=== PATIENT | female | born 1930 | race Caucasian/White ===

== ENCOUNTER 2018-02-19 17:14 | Inpatient (IN) | payer OTHER ==
[2018-02-19] MEDS ORDERED: ACETAMINOPHEN 325 MG TABLET ONE ×2 (18:17→18:21)
[2018-02-19] MEDS ORDERED: LOPERAMIDE HCL 2 MG CAPSULE PO PRN (18:27)
[2018-02-19] MEDS ORDERED: ONDANSETRON 4 MG/2 ML VIAL IV PRN (18:27)
[2018-02-19] MEDS ORDERED: POLYETHYL GLY 3350 17 GM/DOSE PO PRN (18:27)
[2018-02-19] MEDS ORDERED: DIPHENHYDRAMINE 25 MG TAB/CAP PO PRN (18:27)
[2018-02-19] MEDS ORDERED: ONDANSETRON 4 MG (ODT) TAB PO PRN (18:27)
[2018-02-19 19:46] LABS: Potassium 4.5 mEq/L (3.6-5.0)
[2018-02-19 19:52] LABS: Bilirubin Direct 0.1 mg/dL (0-0.2); Bilirubin Total 0.6 mg/dL (0.3-1.2); Magnesium 1.8 mg/dL (1.8-2.5); Protein, Total 6.7 g/dL (6.0-8.3)
[2018-02-19 19:58] LABS: Absolute Lymphocytes (CBC) 0.8 K/uL (0.7-4.9); Basophils % 0.4 % (0-1.3); Eosinophils % 2.6 % (0-4.4); Hematocrit 33.2 % (36.0-45.0); Lymphocytes % 11.1 % (15.3-44.8); MCH 28.5 pg (27.0-35.0); MCV 87.4 fL (80-100); MPV 8.1 fL (7.6-11.3); Monocytes % 13.8 % (3.3-12.3)
[2018-02-19 19:59] LABS: Protime INR 3.56
[2018-02-19 20:25] LABS: Thyroid Stimulating Hormone 1.16 uIU/mL (0.34-5.60)
[2018-02-19] MEDS ORDERED: PNEUMOCOCCAL VACCINE 0.5 ML IMVAC ONE (21:00)
[2018-02-19 22:59] VITALS: BMI 19.3
[2018-02-20] MEDS: VANCOMYCIN/NS 1 gm 1 GM/250 ML BAG IV SCH ×2 (01:03→09:00)
[2018-02-20] MEDS: NACHLORIDE 0.45% 1,000 ML IV SCH ×2 (01:04→15:00)
[2018-02-20] MEDS: ACETAMINOPHEN 325 MG TABLET PO PRN ×3 (03:19→20:58)
[2018-02-20 07:22] LABS: Magnesium 1.9 mg/dL (1.8-2.5); Potassium 4.7 mEq/L (3.6-5.0)
[2018-02-20 07:25] LABS: Absolute Lymphocytes (CBC) 0.8 K/uL (0.7-4.9); Absolute Monocytes 0.9 K/uL (0.1-1.3); Absolute Neutrophil 4.1 K/uL (1.8-8.0); Basophils % 0.3 % (0-1.3); Eosinophils % 3.4 % (0-4.4); Lymphocytes % 13.8 % (15.3-44.8); MCH 28.5 pg (27.0-35.0); MCV 86.2 fL (80-100); MPV 8.1 fL (7.6-11.3); Monocytes % 14.9 % (3.3-12.3)
[2018-02-20 07:37] LABS: Protime INR 4.33
--- NOTE | 2018-02-20 09:23 | RAD REPORT ---
EXAM DESCRIPTION: US - Abdomen Exam Complete - 02/20/2018 8:58 am CLINICAL HISTORY: Abdominal pain COMPARISON: 2010 FINDINGS: Hepatic granulomata are present. The gallbladder is distended. A gallstone is not seen. A 27 millimeter echogenic structure is present within the gallbladder which does not shadow. The gallbladder wall is not thickened. The common bile duct is upper limits normal caliber The pancreas appears normal in size and echotexture. The right kidney measures 10 centimeters with a normal echotexture. The left kidney measures 10 centimeters with a normal echotexture. The spleen measures 9 centimeters. IMPRESSION: Distended gallbladder 27 millimeter echogenic structure within the gallbladder probably represents a sludge ball. A follow- up ultrasound in 6 months is recommended for re-evaluation.
[2018-02-20 10:24] LABS: Anisocytosis 1+; Blood Morphology Comment NOTED (NOT SEEN); Elliptocytes 1+; Platelet Estimate DECR; Urine White Blood Cell Casts OK
[2018-02-20 11:33] LABS: Urine Appearance CLEAR; Urine Bilirubin NEGATIVE (NEG); Urine Blood NEGATIVE (NEG); Urine Color YELLOW; Urine Glucose NEGATIVE (NEG); Urine Protein NEGATIVE (NEG); Urine Urobilinogen 0.2 mg/dL (0.2-1.0); Urine pH 5.5 (5.0-7.0)
[2018-02-20 11:37] LABS: Urine Microscopic Reflex NO UMIC
--- NOTE | 2018-02-20 13:44 | P.PN ---
Subjective Date of Service: 02/20/18 Chief Complaint: FEVER, CHILLS Subjective: No new changes Review of Systems 10-point ROS is otherwise unremarkable General: Weakness, Malaise Physical Examination - Vital Signs Temperature: 97.7 F Blood Pressure: 122/46 Pulse: 60 Respirations: 18 Pulse Ox (%): 94 - Physical Exam General: Alert, Cachectic, Mild distress HEENT: Atraumatic, PERRLA, EOMI Neck: Supple, JVD not distended Respiratory: Clear to auscultation bilaterally, Normal air movement Cardiovascular: Regular rate/rhythm, Normal S1 S2 Gastrointestinal: Tenderness (RUQ, NO REBOUND.) Musculoskeletal: No tenderness Integumentary: No rashes Neurological: Normal speech, Normal tone, Normal affect Lymphatics: No axilla or inguinal lymphadenopathy - Studies Laboratory Data (last 24 hrs) 02/20/18 06:20: Sodium 133 L, Potassium 4.7, BUN 20, Creatinine 1.50 H, Glucose 99, Magnesium 1.9 02/20/18 06:20: PT 51.9 H, INR 4.33 H* 02/20/18 06:20: WBC 6.1, Hgb 10.3 L, Hct 31.0 L, Plt Count 108 L 02/19/18 19:20: Sodium 134 L, Potassium 4.5, BUN 20, Creatinine 1.65 H, Glucose 106, Phosphorus 3.0, Magnesium 1.8, Total Bilirubin 0.6, AST 35, ALT 21, Alkaline Phosphatase 66 02/19/18 19:20: PT 42.5 H, INR 3.56, APTT 44.6 H 02/19/18 19:20: WBC 7.0, Hgb 10.8 L, Hct 33.2 L, Plt Count 127 L Medications List Reviewed: Yes Assessment And Plan - Current Problems (Diagnosis) (1) FUO (fever of unknown origin) Current Visit: Yes Status: Acute Plan: UNCLEAR SO FAR WHERE IS FEVER COMING FOR SHE REFUSED TO CT SCAN YSTERDAY SONOGRAM IS DONE WILL ORDER CXR. GB DISTENSION BUT NO THICKENING. SHE NEEDS HIDA SCAN CULTURES ARE PENDING. 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
[2018-02-20] MEDS ORDERED: GABAPENTIN 100 MG CAP PO SCH (14:00)
--- NOTE | 2018-02-20 14:38 | RAD REPORT ---
EXAM DESCRIPTION: RAD - Chest Pa And Lat (2 Views) - 02/20/2018 2:29 pm CLINICAL HISTORY: Cough, shortness of breath COMPARISON: 01/12/2015, 01/24/2011 FINDINGS: Diffuse emphysematous changes are present throughout the lungs. Blunting of the costophren ic angles bilaterally likely indicates pleural thickening or small pleural effusions. The heart is mi ldly enlarged in size with a multi lead pacer/defibrillator device. No displaced fractures. IMPRESSION: Diffuse COPD.
[2018-02-20] MEDS ORDERED: GABAPENTIN 100 MG CAP PO PRN (16:02)
[2018-02-20] MEDS ORDERED: WARFARIN SODIUM 4 MG TAB PO SCH (17:00)
[2018-02-20] MEDS: METRONIDAZOLE 500mg IVPB 500 MG/100 ML BAG IV SCH (17:32)
[2018-02-20 17:35] VITALS: O2SAT 97
[2018-02-20] MEDS: Ciprofloxacin 200mg IV 200 MG/100 ML IV.SOLN. IV SCH (20:57)
[2018-02-21] MEDS: METRONIDAZOLE 500mg IVPB 500 MG/100 ML BAG IV SCH ×2 (00:40→09:53)
[2018-02-21] MEDS: ACETAMINOPHEN 325 MG TABLET PO PRN (02:45)
[2018-02-21] MEDS: NACHLORIDE 0.45% 1,000 ML IV SCH (02:46)
[2018-02-21 05:29] LABS: Absolute Lymphocytes (CBC) 1.1 K/uL (0.7-4.9); Absolute Monocytes 0.9 K/uL (0.1-1.3); Absolute Neutrophil 2.9 K/uL (1.8-8.0); Basophils % 0.4 % (0-1.3); Eosinophils % 3.8 % (0-4.4); Hematocrit 30.3 % (36.0-45.0); Lymphocytes % 21.5 % (15.3-44.8); MCH 28.3 pg (27.0-35.0); MCV 86.5 fL (80-100); MPV 8.2 fL (7.6-11.3); Monocytes % 17.8 % (3.3-12.3); RBC Red Blood Cell Count 3.51 M/uL (3.86-4.86)
[2018-02-21 05:31] LABS: Potassium 4.4 mEq/L (3.6-5.0)
[2018-02-21 05:32] LABS: Magnesium 1.9 mg/dL (1.8-2.5)
[2018-02-21 05:35] LABS: Protime INR 4.47
[2018-02-21 06:30] LABS: Blood Morphology Comment NOT SEEN (NOT SEEN); Platelet Estimate DECR; Urine White Blood Cell Casts OK
[2018-02-21] MEDS ORDERED: METOPROLOL XL 50 MG TAB PO SCH (09:00)
[2018-02-21] MEDS ORDERED: LOSARTAN POTASSIUM 50 MG TABLET PO SCH (09:00)
--- NOTE | 2018-02-21 09:16 | RAD REPORT ---
EXAM DESCRIPTION: NM - Hepatobiliary System Imagin - 02/21/2018 9:06 am CLINICAL HISTORY: Abdominal pain COMPARISON: February 21, 2008 ultrasound TECHNIQUE: 6.3 millicuries technetium Choletec were administered intravenously and images of the abd omen obtained for 30 minutes. The patient was then given 4 ounces of ice cream and images of the gall bladder obtained for 30 minutes. FINDINGS: The liver demonstrates prompt radiotracer activity. Uptake is seen within the gallbladder by 15 minutes. Uptake is seen within small bowel. After the administration of ice cream the gallbladder ejection fraction equals 30% Normal values are usually greater than 35%. IMPRESSION: No evidence of acute cholecystitis Mildly diminished gallbladder ejection fraction may indicate biliary dyskinesis
[2018-02-21] MEDS: Ciprofloxacin 200mg IV 200 MG/100 ML IV.SOLN. IV SCH (09:53)
[2018-02-21 12:03] VITALS: BP 113/45; TEMP 97
--- NOTE | 2018-02-21 12:43 | P.DS ---
Admission Date: 02/19/18 Discharge Date: 02/21/18 Disposition: ROUTINE DISCHARGE Discharge Condition: FAIR Reason for Admission: FEVER, CHILLS - Problems (1) FUO (fever of unknown origin) Current Visit: Yes Status: Acute (2) Gallbladder disorder Current Visit: Yes Status: Acute (3) Prosthetic valve endocarditis Current Visit: Yes Status: Acute Hospital Course: MS. ABREU STARTED FEELING BAD AFTER SULFA ABX. SHE HAD FEVER, CHILLS AND ACHES. SHE HAS PROSTHETIC VALVE, ENDOCARDITIS IS FIRST IN DD. HER BLOOD CULTUERS ARE NEGATIVE. ONE IS FALSE POSITIVE AND LOOKS LIKE A CONTAMINANT. SHE DOES NOT HAVE CRITERIA FOR ENDOCARDITIS. HER CT ABDOMEN SHOWED GB DILATATION. I ORDERED HIDA SCAN AND THAT IS NEGATIVE. SHE IS FEELING GREAT. I SUSPECT SHE HAD REACTION TO SULFA WITH FEBRILE REACTION. I STOPPED ALL ABX. I WILL WATCH HER ON FRIDAY. FAMILY UNDERSTOOD WELL. I TOLD HER THAT I DON'T LIKE TO OVER OR UNDERTREAT AND WOULD LIKE TO OBSERVE IF SHE HAS ANY RECURRENCE OF SYMPTOMS. SHE IS FEELING GREAT TODAY. Vital Signs/Physical Exam: Temp Pulse Resp BP Pulse Ox 97 F 60 16 113/45 L 96 02/21/18 12:00 02/21/18 12:00 02/21/18 12:00 02/21/18 12:00 02/21/18 12:00 Laboratory Data at Discharge: WBC 5.2 K/uL (4.3-10.9) D 02/21/18 04:44 Hgb 9.9 g/dL (12.0-15.0) L 02/21/18 04:44 Hct 30.3 % (36.0-45.0) L 02/21/18 04:44 Plt Count 103 K/uL (152-406) L 02/21/18 04:44 PT 53.5 SECONDS (9.5-12.5) H 02/21/18 04:44 INR 4.47 H* 02/21/18 04:44 APTT 44.6 SECONDS (24.3-36.9) H 02/19/18 19:20 Sodium 135 mEq/L (135-145) 02/21/18 04:44 Potassium 4.4 mEq/L (3.6-5.0) 02/21/18 04:44 BUN 17 mg/dL (6-20) 02/21/18 04:44 Creatinine 1.15 mg/dL (0.44-1.00) H 02/21/18 04:44 Glucose 97 mg/dL (65-120) 02/21/18 04:44 Phosphorus 3.0 mg/dL (2.5-4.3) 02/19/18 19:20 Magnesium 1.9 mg/dL (1.8-2.5) 02/21/18 04:44 Total Bilirubin 0.6 mg/dL (0.3-1.2) 02/19/18 19:20 AST 35 IU/L (10-42) 02/19/18 19:20 ALT 21 IU/L (10-60) 02/19/18 19:20 Alkaline Phosphatase 66 IU/L (42-121) 02/19/18 19:20 Home Medications: Metoprolol Succinate [Toprol Xl*] 50 mg PO DAILY 01/13/15 Gabapentin [Neurontin*] 100 mg PO TID 02/19/18 Acetaminophen [Tylenol*] 650 mg PO Q6HP PRN tab 02/21/18 Patient Discharge Instructions: DO NOT TAKE WARFARIN UNTIL YOU VISIT US AT ABOUT 4 PM , FRIDAY. WATCH FOR FEVER, RECORD TEMPERATURE. Diet: Regular Activity: Ad pratima
[2018-02-21] MEDS ORDERED: VANCOMYCIN/NS 1 gm 1 GM/250 ML BAG IV SCH (13:00)
--- NOTE | 2018-02-21 13:33 | CON ---
Date of Consultation: 02/20/2018 Reason For Consultation: Evaluate gallbladder and the patient with fever. History Of Present Illness: The patient is an 88-year-old female, who was seen in Dr. Reyna's office with fever and feeling ill. She was admitted to the hospital. She has a prosthetic valve. Endocar ditis is the main concern and workup has been started; however, blood cultures so far are negative. She had an ultrasound of the abdomen because she was little tender in the abdomen. She has some slud ge in her gallbladder. I was consulted and HIDA scan was ordered and HIDA scan does not show any orlin dence of acute cholecystitis although the ejection fraction is borderline. The patient denies any na usea or vomiting. No abdominal pain. No diarrhea or constipation. No dysuria or hematuria. No sor e throat, runny nose, cough, headaches, or dizziness and she has had high fevers and chills but she h as had some sweating earlier this morning and feels much better now and she is hungry. Review of Systems: Otherwise unremarkable. Past Medical History: Significant for hypertension and mitral valve prolapse, rheumatic fever, hyper lipidemia, history of atrial fibrillation. Past Surgical History: Valve replacement [place] type, pacemaker defibrillator, cataract surgery, tonsillectomy, cardiac stent, inguinal hernia repair. Allergies: INCLUDE CODEINE, DILAUDID, SULFA. Medications: Reviewed. She is on Coumadin. She does not smoke or drink. Family History: Significant for SC and coronary artery disease. Physical Examination: Vital Signs: Stable. She is currently afebrile. General: She is awake, alert, and oriented x3. Head and Neck: Cranial nerves 2 through 12 grossly within normal limits. No neck masses. No JVD. Throat clear. Neck is supple. Chest: Clear. Heart: S1, S2. Abdomen: Soft, nondistended, nontender. Positive bowel sounds. Extremities: Neurovascularly intact. Neuro: Nonfocal. Laboratory Data: White count is 5.2. There was normal left shift. Monocytes are elevated. INR is 4.47. Chemistry reviewed. Her LFT, amylase, lipase were within normal limit on admission. Ultrasou nd done yesterday shows distended gallbladder, 27 mm echogenic structure within the gallbladder proba emelina present sludge ball. No evidence of acute cholecystitis and her HIDA scan reviewed, shows no orlin dence of acute cholecystitis. Mildly diminished gallbladder ejection fraction may indicate biliary d yskinesia. Assessment: Sepsis, etiology unclear, could be endocarditis or viral syndrome. At this time, I do not believe the gallbladder is the reason the patient is having fever. I would re commend diet as tolerated. Antibiotics and further work up to rule out endocarditis. No need for an y surgical intervention at this time. Plan of care discussed with the family, the patient as well as Dr. Reyna. ROMARIO/SELIN Voice ID: [id number] Report ID: [id number]
== END 2018-02-21 14:08 | disposition home or self-care (01) | DRG 864 ==
LOC: OBSVTOIN 17:56 → INTOOBSV 17:56 → 4TH 17:56 → OBSVTOIN 02-21 08:56
PROVIDERS: ADMIT Internal Medicine; ATTEND Internal Medicine
DX: R50.2 Drug induced fever (principal); K82.9 Disease of gallbladder, unspecified; I10 Essential (primary) hypertension; I34.1 Nonrheumatic mitral (valve) prolapse; E78.5 Hyperlipidemia, unspecified; I48.91 Unspecified atrial fibrillation; T37.0X5A Adverse effect of sulfonamides, initial encounter; Z95.810 Presence of automatic (implantable) cardiac defibrillator; Z28.21 Immunization not carried out because of patient refusal
CPT/HCPCS: 36415; 71046; 76700; 78226; 80048; 80076; 81003; 82306; 82607; 82962; 83735; 84100; 84443; 85025; 85610; 85652; 85730; 86140; 87040; 87086; 87088; 87205; A9537; J0744; J3370

== ENCOUNTER 2018-12-17 01:53 | Emergency (ER) | payer OTHER ==
[2018-12-17] MEDS ORDERED: MEPERIDINE HCL 25 MG/0.5 ML ONE (02:26)
[2018-12-17] MEDS ORDERED: ONDANSETRON 4 MG/2 ML VIAL ONE (02:26)
[2018-12-17 02:32] LABS: Absolute Monocytes 0.7 K/uL (0.1-1.3); Absolute Neutrophil 8.5 K/uL (1.8-8.0); Basophils % 0.2 % (0-1.3); Eosinophils % 0.1 % (0-4.4); Hematocrit 32.7 % (36.0-45.0); Lymphocytes % 9.5 % (15.3-44.8); MPV 7.4 fL (7.6-11.3); Monocytes % 6.8 % (3.3-12.3); RBC Red Blood Cell Count 3.83 M/uL (3.86-4.86)
[2018-12-17 02:55] LABS: Albumin 3.9 g/dL (3.4-5.0); Bilirubin Total 1.6 mg/dL (0.2-1.0); Potassium 3.8 mmol/L (3.5-5.1); Protein, Total 7.5 g/dL (6.4-8.2)
--- NOTE | 2018-12-17 05:30 | EDPHYS ---
Physician Documentation [facility] Name: Ann-Marie Caal Age: 88 yrs Sex: Female : 1930 Arrival Date: 12/17/2018 Time: 02:01 Bed 5 Private MD: ED Physician Antoni Negro HPI: 12/17 02:07 This 88 yrs old Female presents to ER via Wheelchair with complaints of Abd jr8 Pain > 50 y/o. 02:07 The patient presents with abdominal pain in the epigastric area. Onset: The jr8 symptoms/episode began/occurred acutely, today. The symptoms radiate to back. Associated signs and symptoms: Pertinent positives: nausea and vomiting. The symptoms are described as shooting, stabbing. Modifying factors: The symptoms are alleviated by nothing, the symptoms are aggravated by nothing. Severity of pain: At its worst the pain was moderate in the emergency department the pain is unchanged. The patient has experienced a previous episode. The patient has not recently seen a physician. Historical: - Allergies: 02:06 Sulfa (Sulfonamide Antibiotics); ed1 02:06 Codeine; ed1 02:06 Dilaudid; ed1 - PMHx: 02:06 Hypertension; ed1 - PSHx: 02:06 two articial valves; pace maker defibrilator; cardiac stent; ed1 - Immunization history:: Adult Immunizations up to date. - Social history:: Smoking status: Patient/guardian denies using tobacco. - Ebola Screening: : Patient negative for fever greater than or equal to 101.5 degrees Fahrenheit, and additional compatible Ebola Virus Disease symptoms Patient denies exposure to infectious person Patient denies travel to an Ebola-affected area in the 21 days before illness onset No symptoms or risks identified at this time. ROS: 02:07 Eyes: Negative for injury, pain, redness, and discharge, ENT: Negative for injury, jr8 pain, and discharge, Neck: Negative for injury, pain, and swelling, Cardiovascular: Negative for chest pain, palpitations, and edema, Respiratory: Negative for shortness of breath, cough, wheezing, and pleuritic chest pain, Back: Negative for injury and pain, MS/Extremity: Negative for injury and deformity, Skin: Negative for injury, rash, and discoloration, Neuro: Negative for headache, weakness, numbness, tingling, and seizure. 02:07 Abdomen/GI: Positive for abdominal pain, nausea and vomiting, Negative for diarrhea, constipation, abdominal cramps, abdominal distension, anorexia, dysphagia, hematemesis, black/tarry stool, rectal pain, rectal bleeding, bowel incontinence, flatulence. Exam: 02:07 Eyes: Pupils equal round and reactive to light, extra-ocular motions intact. Lids and jr8 lashes normal. Conjunctiva and sclera are non-icteric and not injected. Cornea within normal limits. Periorbital areas with no swelling, redness, or edema. ENT: Nares patent. No nasal discharge, no septal abnormalities noted. Tympanic membranes are normal and external auditory canals are clear. Oropharynx with no redness, swelling, or masses, exudates, or evidence of obstruction, uvula midline. Mucous membranes moist. Neck: Trachea midline, no thyromegaly or masses palpated, and no cervical lymphadenopathy. Supple, full range of motion without nuchal rigidity, or vertebral point tenderness. No Meningismus. Cardiovascular: Regular rate and rhythm with a normal S1 and S2. No gallops, murmurs, or rubs. Normal PMI, no JVD. No pulse deficits. Respiratory: Lungs have equal breath sounds bilaterally, clear to auscultation and percussion. No rales, rhonchi or wheezes noted. No increased work of breathing, no retractions or nasal flaring. Back: No spinal tenderness. No costovertebral tenderness. Full range of motion. Skin: Warm, dry with normal turgor. Normal color with no rashes, no lesions, and no evidence of cellulitis. MS/ Extremity: Pulses equal, no cyanosis. Neurovascular intact. Full, normal range of motion. Neuro: Awake and alert, GCS 15, oriented to person, place, time, and situation. Cranial nerves II-XII grossly intact. Motor strength 5/5 in all extremities. Sensory grossly intact. Cerebellar exam normal. Normal gait. 02:07 Abdomen/GI: Inspection: abdomen appears normal, Bowel sounds: active, all quadrants, Palpation: soft, in all quadrants, moderate abdominal tenderness, in the epigastric area and right upper quadrant, mass, is not appreciated, rebound tenderness, is not appreciated, voluntary guarding, is not appreciated, involuntary guarding, is not appreciated, no appreciated organomegaly, Indicators: McBurney's point is not tender, Stewart's sign is negative, Rovsing's sign is negative, Liver: tenderness, is not appreciated. Vital Signs: 02:06 BP 186 / 47; Pulse 60; Resp 20; Pulse Ox 100% on R/A; Pain 7/10; ed1 02:27 BP 171 / 50; Pulse 60; Resp 13; Temp 97.2(O); Pulse Ox 94% on R/A; Pain 7/10; ed1 03:21 BP 154 / 48; Pulse 60; Resp 14; Pulse Ox 96% on R/A; Pain 4/10; ed1 04:17 BP 146 / 44; Pulse 60; Resp 15; Pulse Ox 94% on R/A; Pain 3/10; ed1 05:38 BP 135 / 42; Pulse 60; Resp 14; Temp 97.9; Pulse Ox 96% on R/A; Pain 2/10; ed1 06:17 BP 141 / 42; Pulse 60; Resp 17; Pulse Ox 99% on R/A; Pain 2/10; ed1 MDM: 02:06 Patient medically screened. tw4 12/17 02:06 Order name: Basic Metabolic Panel; Complete Time: 03:00 12/17 02:06 Order name: CBC with Diff; Complete Time: 02:54 12/17 02:06 Order name: Creatinine for Radiology; Complete Time: 02:39 12/17 02:06 Order name: Hepatic Function; Complete Time: 03:00 12/17 02:06 Order name: Lipase; Complete Time: 03:00 12/17 02:06 Order name: IV Saline Lock; Complete Time: 02:12 12/17 02:06 Order name: Labs collected and sent; Complete Time: 02:12 12/17 02:39 Order name: CT Abd/Pelvis - W/Contrast Administered Medications: 02:14 CANCELLED (Physician Discretion): morphine 2 mg IVP once Drug: Zofran 4 mg Route: IVP; Site: right antecubital; ed1 03:00 Follow up: Response: No adverse reaction; Nausea is decreased ed1 02:29 Drug: Demerol 25 mg Route: IVP; Site: right antecubital; ed1 03:00 Follow up: Response: No adverse reaction; Pain is decreased ed1 05:37 Drug: NS 0.9% 1000 ml Route: IV; Rate: 75 ml/hr; Site: right antecubital; ed1 06:21 Follow up: IV Status: Infusion continued upon transfer ed1 Disposition: 05:30 Co-signature as Attending Physician, Antoni Negro MD I agree with the assessment and tw4 plan of care. Disposition: 12/17/18 05:29 Transfer ordered to [facility]. Diagnosis are Cholelithiasis, Choldocholithiasis. - Reason for transfer: Higher level of care. - Accepting physician is Dr Blake. - Condition is Stable. - Problem is new. - Symptoms have improved. Signatures: Dispatcher [employer] EDMS Elvira Gonzáles RN RN ed1 Akash Mercado PA PA jrAntoni Sherman MD MD tw4 Corrections: (The following items were deleted from the chart) 02:14 02:06 morphine 2 mg IVP once ordered. jr8 jr8 06:22 05:29 12/17/2018 05:29 Transfer ordered to [facility]. Diagnosis is ed1 Cholelithiasis; Choldocholithiasis. Reason for transfer: Higher level of care. Accepting physician is Dr Blake. Condition is Stable. Problem is new. Symptoms have improved. tw4
--- NOTE | 2018-12-17 05:30 | ER ---
Nurse's Notes [facility] Name: Ann-Marie Caal Age: 88 yrs Sex: Female : 1930 Arrival Date: 12/17/2018 Time: 02:01 Bed 5 Private MD: Diagnosis: Cholelithiasis;Choldocholithiasis Presentation: 12/17 02:02 Presenting complaint: Patient states: Abdominal pain that started around 2pm yesterday ed1 and is getting worse. I have also been throwing up. Transition of care: patient was not received from another setting of care. Onset of symptoms was December 16, 2018. Risk Assessment: Do you want to hurt yourself or someone else? Patient reports no desire to harm self or others. Initial Sepsis Screen: Does the patient meet any 2 criteria? No. Patient's initial sepsis screen is negative. Does the patient have a suspected source of infection? No. Patient's initial sepsis screen is negative. Care prior to arrival: None. 02:02 Method Of Arrival: Wheelchair ed1 02:02 Acuity: MANNY 3 ed1 Triage Assessment: 02:06 General: Appears uncomfortable, Behavior is calm, cooperative. Pain: Complains of pain ed1 in epigastric area Pain radiates to back Pain currently is 7 out of 10 on a pain scale. Quality of pain is described as sharp. EENT: No signs and/or symptoms were reported regarding the EENT system. Neuro: Level of Consciousness is awake, alert, obeys commands, Oriented to person, place, time, situation. Cardiovascular: Denies chest pain, Heart tones S1 S2 present. Respiratory: Airway is patent Respiratory effort is even, unlabored, Respiratory pattern is regular, symmetrical, Breath sounds are clear bilaterally. GI: Abdomen is non-distended, Pt is actively vomiting bile, Bowel sounds present X 4 quads. Abd is soft X 4 quads Abdomen is tender to palpation in epigastric area and right upper quadrant. : No signs and/or symptoms were reported regarding the genitourinary system. Derm: Skin is intact, is fragile, is thin, Skin is dry, Skin is normal, Skin temperature is warm. Musculoskeletal: Circulation, motion, and sensation intact. Historical: - Allergies: 02:06 Sulfa (Sulfonamide Antibiotics); ed1 02:06 Codeine; ed1 02:06 Dilaudid; ed1 - PMHx: 02:06 Hypertension; ed1 - PSHx: 02:06 two articial valves; pace maker defibrilator; cardiac stent; ed1 - Immunization history:: Adult Immunizations up to date. - Social history:: Smoking status: Patient/guardian denies using tobacco. - Ebola Screening: : Patient negative for fever greater than or equal to 101.5 degrees Fahrenheit, and additional compatible Ebola Virus Disease symptoms Patient denies exposure to infectious person Patient denies travel to an Ebola-affected area in the 21 days before illness onset No symptoms or risks identified at this time. Screenin:10 Abuse screen: Denies threats or abuse. Denies injuries from another. Nutritional ed1 screening: No deficits noted. Tuberculosis screening: No symptoms or risk factors identified. Fall Risk None identified. Assessment: 02:10 General: See triage assessment. ed1 02:27 Reassessment: No changes from previously documented assessment. Patient and/or family ed1 updated on plan of care and expected duration. Pain level reassessed. Patient is alert, oriented x 3, equal unlabored respirations, skin warm/dry/pink. Patient states symptoms have not improved. 03:21 Reassessment: Patient appears in no apparent distress at this time. Patient and/or ed1 family updated on plan of care and expected duration. Pain level reassessed. Patient is alert, oriented x 3, equal unlabored respirations, skin warm/dry/pink. Patient states feeling better. Patient states symptoms have improved. 04:17 Reassessment: Patient appears in no apparent distress at this time. Patient and/or ed1 family updated on plan of care and expected duration. Pain level reassessed. Patient is alert, oriented x 3, equal unlabored respirations, skin warm/dry/pink. Patient states feeling better. Patient states symptoms have improved. 05:38 Reassessment: Patient appears in no apparent distress at this time. Patient and/or ed1 family updated on plan of care and expected duration. Pain level reassessed. Patient is alert, oriented x 3, equal unlabored respirations, skin warm/dry/pink. Patient states feeling better. Patient states symptoms have improved. 06:17 Reassessment: Patient appears in no apparent distress at this time. Patient and/or ed1 family updated on plan of care and expected duration. Pain level reassessed. Patient is alert, oriented x 3, equal unlabored respirations, skin warm/dry/pink. Patient states feeling better. Patient states symptoms have improved. Vital Signs: 02:06 BP 186 / 47; Pulse 60; Resp 20; Pulse Ox 100% on R/A; Pain 7/10; ed1 02:27 BP 171 / 50; Pulse 60; Resp 13; Temp 97.2(O); Pulse Ox 94% on R/A; Pain 7/10; ed1 03:21 BP 154 / 48; Pulse 60; Resp 14; Pulse Ox 96% on R/A; Pain 4/10; ed1 04:17 BP 146 / 44; Pulse 60; Resp 15; Pulse Ox 94% on R/A; Pain 3/10; ed1 05:38 BP 135 / 42; Pulse 60; Resp 14; Temp 97.9; Pulse Ox 96% on R/A; Pain 2/10; ed1 06:17 BP 141 / 42; Pulse 60; Resp 17; Pulse Ox 99% on R/A; Pain 2/10; ed1 ED Course: 02:01 Patient arrived in ED. ed1 02:03 Triage completed. ed1 02:06 Antoni Negro MD is Attending Physician. tw4 02:06 [facility] Mercado [facility]. jr8 02:06 Arm band placed on right wrist. ed1 02:10 Patient has correct armband on for positive identification. Placed in gown. Bed in low ed1 position. Call light in reach. Side rails up X 1. Adult w/ patient. leather goods sales representative on. Pulse ox on. NIBP on. 02:11 EKG done, by ED staff, reviewed by Antoni Negro MD. Inserted saline lock: 20 gauge ed1 in right antecubital area, using aseptic technique. 02:29 Elvira Gonzáles, OLENA is Primary Nurse. ed1 03:15 CT completed. Patient tolerated procedure well. Patient moved to CT via stretcher. Patient moved back from CT. 03:39 CT Abd/Pelvis - W/Contrast In Process Unspecified. EDMS 04:17 Resting quietly. Awaiting radiology results. ed1 06:17 No provider procedures requiring assistance completed. Patient transferred, IV remains ed1 in place. intact, No redness/swelling at site. Administered Medications: 02:14 CANCELLED (Physician Discretion): morphine 2 mg IVP once jr8 02:28 Drug: Zofran 4 mg Route: IVP; Site: right antecubital; ed1 03:00 Follow up: Response: No adverse reaction; Nausea is decreased ed1 02:29 Drug: Demerol 25 mg Route: IVP; Site: right antecubital; ed1 03:00 Follow up: Response: No adverse reaction; Pain is decreased ed1 05:37 Drug: NS 0.9% 1000 ml Route: IV; Rate: 75 ml/hr; Site: right antecubital; ed1 06:21 Follow up: IV Status: Infusion continued upon transfer ed1 Outcome: 05:29 ER care complete, transfer ordered by tw4 06:17 Transferred by ground EMS [facility]. to [facility], Transfer ed1 form completed. X-rays sent w/ patient. Note: Report called to Lelia Choe RN 06:17 Condition: stable 06:17 Discharge instructions given to patient, family, Instructed on the need for transfer, Demonstrated understanding of instructions. 06:22 Patient left the ED. ed1 Signatures: Dispatcher [employer] EDMS Jose Bunch Erika, RN RN ed1 Akash Mercado PA PA jr8 Antoni Negro MD MD tw4
[2018-12-17] MEDS ORDERED: NA CHLORIDE 0.9% 1,000 ML ONE (05:42)
[2018-12-17 07:06] VITALS: TEMP 97.9
[2018-12-17 07:07] VITALS: BP 141/42; O2SAT 99
--- NOTE | 2018-12-17 08:44 | EKG ---
Test Date: 2018-12-17 Test Time: 01:59:18 Administration Vice President: SUGAR MEASUREMENT RESULTS: Intervals: Rate: 60 HI: 480 QRSD: 152 QT: 478 QTc: 478 [place]: P: HI: 480 QRS: -73 T: 101 INTERPRETIVE STATEMENTS: Electronic ventricular pacemaker Compared to ECG 11/29/2015 12:54:04 No significant changes Electronically Signed On 12-17-18 08:43:06 TRANSPORTATION ATTENDANT by Colby Garza
--- NOTE | 2018-12-17 10:53 | RAD REPORT ---
EXAM DESCRIPTION: CT - Abdomen Pelvis W Contrast - 12/17/2018 4:39 am COMPARISON: CT abdomen pelvis April 20, 2013 CLINICAL HISTORY: Abdominal pain, epigastric pain, vomiting TECHNIQUE: Multiple helical axial images were obtained through the abdomen and pelvis using intraven ous contrast. Coronal and sagittal reformatted images were obtained. All CT scans at this facility use dose modulation, iterative reconstruction, and/or weight-based dosi ng when appropriate to reduce radiation dose to as low as reasonably achievable. FINDINGS: Lung bases: Cardiac pacing lead noted. Heart appears mildly enlarged. There is a 1 cm jon d/subsolid nodular density in the right lower lobe (series 401, image 5). Small granuloma in the left lower lobe is present. Liver: Several tiny calcified granulomas in the liver are present. Liver demonstrates a slightly nodu lar contour suggesting cirrhotic changes. There is recanalization of the umbilical vein. Gallbladder/biliary: A few stones in the gallbladder are present. Gallbladder appears distended. Ther e are stones in the common bile duct measuring up to 1.3 cm with associated dilatation of the common bile duct measuring up to 1.9 cm in width. There is mild intrahepatic biliary ductal dilatation. Pancreas: Unremarkable. No evidence of ductal enlargement. Spleen: There are a few tiny calcific densities in the spleen suggestive of granulomas. Adrenals: Unremarkable. Kidneys and ureters: No evidence of hydronephrosis. Normal enhancement. Subcentimeter hypodensity i n the left kidney is present too small to characterize. Bladder: Unremarkable. Pelvic organs: Unremarkable. Bowel: Colonic diverticula are present. No evidence of bowel obstruction. No bowel wall thickening. Appendix appears unremarkable. Vasculature: Aortoiliac atherosclerosis is present. Peritoneum: No free air. No significant free fluid. Lymph nodes: Unremarkable. Soft tissues: Unremarkable. Bones: Degenerative changes of the lumbar spine noted. IMPRESSION: 1. Cholelithiasis and choledocholithiasis with biliary ductal dilatation. 2. Nodular contour of the liver suggestive of cirrhotic changes. 3. Right lower lobe 1 cm pulmonary nodular density. Consider follow-up chest CT in three months to en sure stability per Fleischner Society criteria. Electronically signed by: Rito Davis MD 12/17/2018 4:02 AM [employer] Due to temporary technical issues with the PACS/Fluency reporting system, reports are being signed by the in house radiologist as a courtesy to ensure prompt reporting. The interpreting radiologist is f ully responsible for the content of the report.
== END 2018-12-17 06:22 | disposition short-term general hospital (02) ==
LOC: ER 01:53
DX: K80.70 Calculus of gallbladder and bile duct without cholecystitis without obstruction (principal); I10 Essential (primary) hypertension; Z88.2 Allergy status to sulfonamides; Z88.5 Allergy status to narcotic agent; Z88.8 Allergy status to other drugs, medicaments and biological substances; Z95.2 Presence of prosthetic heart valve; Z95.810 Presence of automatic (implantable) cardiac defibrillator; Z95.818 Presence of other cardiac implants and grafts
CPT/HCPCS: 96361; 93005; 85025; 80048; 36415; 80076; 83690; 74177; 96375; 96374; 99285; Q9967; J2175; J7030; J2405

== ENCOUNTER 2019-05-14 11:45 | Emergency (ER) | payer OTHER ==
--- OUTSIDE RECORDS SUMMARY | 2019-05-14 11:50 | XMS REPORT | Clinical Summary ---
:1930 Author Organization [facility] Address [address] [place] [address] Care Team Providers Name Role Phone Pcp, No Primary Care Provider Unavailable Allergies Active Allergy Reactions Severity Noted Date Comments Codeine Rash Low 12/17/2018 Hydromorphone (Bulk) Hives High 12/17/2018 Hydromorphone Rash Low 12/17/2018 Sulfa (Sulfonamide Other (See Comments) High 12/17/2018 Pt stated she does Antibiotics) not remember. She was told not to take this medication Medications Medication Sig Dispensed Refills Start Date End Date Status metoprolol Take 50 mg by 0 Active (LOPRESSOR) 50 MG mouth daily. tabletIndications: Metoprolol ER 50 Q day. losartan (COZAAR) 25 Take 25 mg by 0 Active MG tablet mouth daily. montelukast Take 10 mg by 0 Active (SINGULAIR) 10 mg mouth tablet nightly. warfarin (COUMADIN) Take 1 tablet 0 01/21/2019 Active 2.5 MG tablet (2.5 mg 0 total) by mouth every evening. acetaminophen Take 2 30 tablet 0 01/21/2019 Active (TYLENOL) 325 MG tablets (650 0 tablet mg total) by mouth every 4 (four) hours as needed for Fever (greater than 100.4F) for up to 360 days. furosemide (LASIX) 20 Take 1 tablet 20 tablet 0 01/21/2019 Active MG tablet (20 mg total) 0 by mouth daily. pantoprazole Take 1 tablet 0 01/21/2019 Active (PROTONIX) 40 MG (40 mg total) tablet by mouth daily. warfarin (COUMADIN) 5 Take 5 mg by 0 Discontinued MG tabletIndications: mouth every 9 Prevent other day. 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 HYDROcodone-acetamino Take 1 tablet 30 tablet 0 01/21/2019 phen (NORCO 5-325) by mouth 9 5-325 mg per tablet every 6 (six) hours as needed for up to 10 days. Max Daily Amount: 4 tablets traMADol (ULTRAM) 50 Take 1 tablet 30 tablet 0 01/21/2019 mg tablet (50 mg total) 9 by mouth every 6 (six) hours as needed for up to 10 days. 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 Atrial fibrillation 12/18/2018 Hypertension 12/18/2018 Coronary artery disease 12/18/2018 Choledocholithiasis 12/17/2018 Encounters Date Type Specialty Care Team Description 01/06/2019 Anesthesia Event Jai King MD 01/06/2019 Surgery Sehorn, LAPAROSCOPY,CHOLEC Scooby YSTECTOMY MD Alexis 01/05/2019 Surgery Meganealjonny, R CATH Parth Rehman MD 01/02/2019 Anesthesia Event Gastroenterology Rashawn James MD 01/02/2019 Surgery Gastroenterology UCHE Mckenzie,BALLOON Nancy Ashton MD 12/30/2018 Travel 12/25/2018 Anesthesia Event Gastroenterology Joselin Blackman, CAT 12/25/2018 Surgery Gastroenterology Gerson Barahona ERCP,BALLOON MD Luis Angel DILATATION 12/22/2018 Anesthesia Event Gastroenterology Rashawn James MD 12/22/2018 Surgery Gastroenterology Gerson Barahona ERCP,BILIARY STENT MD Luis Angel 12/17/2018 Anesthesia Event Gastroenterology Russell Todd MD 12/17/2018 - Hospital Encounter General Internal Blake, Choledocholithiasis; 01/21/2019 Medicine Jenni Autumn, Abdominal pain, unspecified abdominal location Arnaldo Lloyd MD Parhizgar, Alireza, MD after 05/13/2018 Social History Tobacco Use Types Packs/Day Years Used Date Never Smoker Smokeless Tobacco: Never Used Sex Assigned at Date Recorded Not on file Job Start Date Occupation Industry Not on file Not on file Not on file Travel History Travel Start Travel End No recent travel history available. Last Filed Vital Signs Vital Sign Reading Time Taken Blood Pressure 118/67 01/21/2019 12:00 PM CDT Pulse 61 01/21/2019 12:19 PM CDT Temperature 37.1 C (98.7 F) 01/21/2019 12:00 PM CDT Respiratory Rate 18 01/21/2019 12:19 PM CDT Oxygen Saturation 96% 01/21/2019 12:19 PM CDT Inhaled Oxygen Concentration 21% 01/01/2019 10:53 PM CDT Weight 77.3 kg (170 lb 6.4 oz) 12/17/2018 9:01 AM TEST ADMINISTRATOR Height 167.6 cm (5' 6") 12/17/2018 9:01 AM TEST ADMINISTRATOR Body Mass Index 27.5 12/17/2018 9:01 AM TEST ADMINISTRATOR Plan of Treatment Not on file Implants Implanted Type Area Corrosion Engineer Device Shelf Model / Identifier Expiration Date Serial / Lot [employer] Biliary Duodenal Blend Stayful [id number] / Implanted: Qty: 1 on 12/22/2018 by Gerson Barahona MD / Procedures Procedure Name Priority Date/Time Associated Diagnosis Comments REPORT OF PROCEDURE 01/22/2019 - ENDOSCOPY SCAN 1:22 PM CDT CARDIAC CATH REPORT 01/22/2019 - SCAN 1:22 PM CDT RHYTHM STRIP - SCAN 01/22/2019 1:22 PM CDT POCT-GLUCOSE METER Routine 01/21/2019 Results for 8:54 AM CDT this procedure are in the results section. PROTHROMBIN TIME/INR Routine 01/21/2019 Results for 5:28 AM CDT this procedure are in the results section. CBC (HEMOGRAM ONLY) Routine 01/21/2019 Results for 5:28 AM CDT this procedure are in the results section. CBC W/PLT COUNT & Routine 01/21/2019 Results for AUTO DIFFERENTIAL 12:51 AM CDT this procedure are in the results section. CBC W/PLT COUNT & Routine 01/21/2019 Results for AUTO DIFFERENTIAL 12:51 AM CDT this procedure are in the results section. HEMOGLOBIN AND Routine 01/21/2019 Results for HEMATOCRIT 12:51 AM CDT this procedure are in the results section. POCT-GLUCOSE METER Routine 01/20/2019 Results for 9:34 PM CDT this procedure are in the results section. POCT-GLUCOSE METER Routine 01/20/2019 Results for 6:40 PM CDT this procedure are in the results section. CT ABDOMEN/PELVIS Routine 01/20/2019 Results for WITHOUT IV CONTRAST 3:37 PM CDT this procedure are in the results section. POCT-GLUCOSE METER Routine 01/20/2019 Results for 12:59 PM CDT this procedure are in the results section. CBC W/PLT COUNT & Routine 01/20/2019 Results for AUTO DIFFERENTIAL 4:55 AM CDT this procedure are in the results section. PROTHROMBIN TIME/INR Routine 01/20/2019 Results for 4:55 AM CDT this procedure are in the results section. CBC (HEMOGRAM ONLY) Routine 01/20/2019 Results for 4:55 AM CDT this procedure are in the results section. MAGNESIUM Routine 01/20/2019 Results for 4:55 AM CDT this procedure are in the results section. PHOSPHORUS Routine 01/20/2019 Results for 4:55 AM CDT this procedure are in the results section. CALCIUM, IONIZED Routine 01/20/2019 Results for 4:55 AM CDT this procedure are in the results section. BASIC METABOLIC Routine 01/20/2019 Results for PANEL (7) 4:55 AM CDT this procedure are in the results section. HEMOGLOBIN AND Routine 01/20/2019 Results for HEMATOCRIT 4:55 AM CDT this procedure are in the results section. CBC W/PLT COUNT & Routine 01/20/2019 Results for AUTO DIFFERENTIAL 4:55 AM CDT this procedure are in the results section. POCT-GLUCOSE METER Routine 01/19/2019 Results for 9:13 PM CDT this procedure are in the results section. POCT-GLUCOSE METER Routine 01/19/2019 Results for 5:49 PM CDT this procedure are in the results section. POCT-GLUCOSE METER Routine 01/19/2019 Results for 1:08 PM CDT this procedure are in the results section. POCT-GLUCOSE METER Routine 01/19/2019 Results for 9:08 AM CDT this procedure are in the results section. CBC W/PLT COUNT & Routine 01/19/2019 Results for AUTO DIFFERENTIAL 4:57 AM CDT this procedure are in the results section. PROTHROMBIN TIME/INR Routine 01/19/2019 Results for 4:57 AM CDT this procedure are in the results section. MAGNESIUM Routine 01/19/2019 Results for 4:57 AM CDT this procedure are in the results section. PHOSPHORUS Routine 01/19/2019 Results for 4:57 AM CDT this procedure are in the results section. CALCIUM, IONIZED Routine 01/19/2019 Results for 4:57 AM CDT this procedure are in the results section. BASIC METABOLIC Routine 01/19/2019 Results for PANEL (7) 4:57 AM CDT this procedure are in the results section. HEMOGLOBIN AND Routine 01/19/2019 Results for HEMATOCRIT 4:57 AM CDT this procedure are in the results section. CBC W/PLT COUNT & Routine 01/19/2019 Results for AUTO DIFFERENTIAL 4:57 AM CDT this procedure are in the results section. APTT Routine 01/19/2019 Results for 4:57 AM CDT this procedure are in the results section. CBC (HEMOGRAM ONLY) Routine 01/19/2019 Results for 4:57 AM CDT this procedure are in the results section. POCT-GLUCOSE METER Routine 01/18/2019 Results for 9:12 PM CDT this procedure are in the results section. CBC W/PLT COUNT & Routine 01/18/2019 Results for AUTO DIFFERENTIAL 3:27 PM CDT this procedure are in the results section. CBC W/PLT COUNT & Routine 01/18/2019 Results for AUTO DIFFERENTIAL 3:27 PM CDT this procedure are in the results section. CBC W/PLT COUNT & Routine 01/18/2019 Results for AUTO DIFFERENTIAL 8:50 AM CDT this procedure are in the results section. CBC W/PLT COUNT & Routine 01/18/2019 Results for AUTO DIFFERENTIAL 8:50 AM CDT this procedure are in the results section. PROTHROMBIN TIME/INR Routine 01/18/2019 Results for 5:05 AM CDT this procedure are in the results section. CBC (HEMOGRAM ONLY) Routine 01/18/2019 Results for 5:05 AM CDT this procedure are in the results section. MAGNESIUM Routine 01/18/2019 Results for 5:05 AM CDT this procedure are in the results section. PHOSPHORUS Routine 01/18/2019 Results for 5:05 AM CDT this procedure are in the results section. CALCIUM, IONIZED Routine 01/18/2019 Results for 5:05 AM CDT this procedure are in the results section. BASIC METABOLIC Routine 01/18/2019 Results for PANEL (7) 5:05 AM CDT this procedure are in the results section. HEMOGLOBIN AND Routine 01/18/2019 Results for HEMATOCRIT 5:05 AM CDT this procedure are in the results section. TRANSFUSION SERVICE 01/17/2019 REPORT - SCAN 6:00 PM CDT CBC W/PLT COUNT & Routine 01/17/2019 Results for AUTO DIFFERENTIAL 4:46 AM CDT this procedure are in the results section. CBC W/PLT COUNT & Routine 01/17/2019 Results for AUTO DIFFERENTIAL 4:46 AM CDT this procedure are in the results section. PROTHROMBIN TIME/INR Routine 01/17/2019 Results for 4:46 AM CDT this procedure are in the results section. CBC (HEMOGRAM ONLY) Routine 01/17/2019 Results for 4:46 AM CDT this procedure are in the results section. MAGNESIUM Routine 01/17/2019 Results for 4:46 AM CDT this procedure are in the results section. PHOSPHORUS Routine 01/17/2019 Results for 4:46 AM CDT this procedure are in the results section. CALCIUM, IONIZED Routine 01/17/2019 Results for 4:46 AM CDT this procedure are in the results section. BASIC METABOLIC Routine 01/17/2019 Results for PANEL (7) 4:46 AM CDT this procedure are in the results section. CBC W/PLT COUNT & Routine 01/17/2019 Results for AUTO DIFFERENTIAL 1:37 AM CDT this procedure are in the results section. CBC W/PLT COUNT & Routine 01/17/2019 Results for AUTO DIFFERENTIAL 1:37 AM CDT this procedure are in the results section. HEMOGLOBIN AND Routine 01/17/2019 Results for HEMATOCRIT 1:37 AM CDT this procedure are in the results section. PREPARE Routine 01/16/2019 Results for LEUKO-REDUCED RBC 11:54 PM CDT this procedure are in the results section. TRANSFUSION SERVICE 01/16/2019 REPORT - SCAN 6:01 PM CDT CBC W/PLT COUNT & Routine 01/16/2019 Results for AUTO DIFFERENTIAL 2:57 PM CDT this procedure are in the results section. CBC W/PLT COUNT & Routine 01/16/2019 Results for AUTO DIFFERENTIAL 2:57 PM CDT this procedure are in the results section. HEMOGLOBIN AND Routine 01/16/2019 Results for HEMATOCRIT 2:57 PM CDT this procedure are in the results section. CALCIUM, IONIZED Routine 01/16/2019 Results for 11:12 AM CDT this procedure are in the results section. PROTHROMBIN TIME/INR Routine 01/16/2019 Results for 3:44 AM CDT this procedure are in the results section. CBC (HEMOGRAM ONLY) Routine 01/16/2019 Results for 3:44 AM CDT this procedure are in the results section. MAGNESIUM Routine 01/16/2019 Results for 3:44 AM CDT this procedure are in the results section. PHOSPHORUS Routine 01/16/2019 Results for 3:44 AM CDT this procedure are in the results section. BASIC METABOLIC Routine 01/16/2019 Results for PANEL (7) 3:44 AM CDT this procedure are in the results section. HEMOGLOBIN AND Routine 01/16/2019 Results for HEMATOCRIT 3:44 AM CDT this procedure are in the results section. TRANSFUSE Routine 01/16/2019 LEUKO-REDUCED RED 2:34 AM CDT BLOOD CELLS TRANSFUSE Routine 01/15/2019 LEUKO-REDUCED RED 10:42 PM CDT BLOOD CELLS CT ABDOMEN/PELVIS Routine 01/15/2019 Results for WITHOUT IV CONTRAST 4:13 PM CDT this procedure are in the results section. APTT Routine 01/15/2019 Results for 3:10 PM CDT this procedure are in the results section. TYPE AND SCREEN, Routine 01/15/2019 Results for AUTOMATED 2:02 PM CDT this procedure are in the results section. APTT Routine 01/15/2019 Results for 8:23 AM CDT this procedure are in the results section. PROTHROMBIN TIME/INR Routine 01/15/2019 Results for 5:24 AM CDT this procedure are in the results section. CBC (HEMOGRAM ONLY) Routine 01/15/2019 Results for 5:17 AM CDT this procedure are in the results section. MAGNESIUM Routine 01/15/2019 Results for 5:17 AM CDT this procedure are in the results section. PHOSPHORUS Routine 01/15/2019 Results for 5:17 AM CDT this procedure are in the results section. CALCIUM, IONIZED Routine 01/15/2019 Results for 5:17 AM CDT this procedure are in the results section. BASIC METABOLIC Routine 01/15/2019 Results for PANEL (7) 5:17 AM CDT this procedure are in the results section. APTT Routine 01/15/2019 Results for 1:25 AM CDT this procedure are in the results section. APTT Routine 01/14/2019 Results for 11:38 PM CDT this procedure are in the results section. APTT Routine 01/14/2019 Results for 9:48 PM CDT this procedure are in the results section. APTT Routine 01/14/2019 Results for 3:54 PM CDT this procedure are in the results section. REPORT OF PROCEDURE 01/14/2019 - ENDOSCOPY URL 12:13 PM CDT APTT Routine 01/14/2019 Results for 9:59 AM CDT this procedure are in the results section. HEMOGLOBIN AND Routine 01/14/2019 Results for HEMATOCRIT 9:59 AM CDT this procedure are in the results section. APTT Routine 01/14/2019 Results for 6:29 AM CDT this procedure are in the results section. PROTHROMBIN TIME/INR Routine 01/14/2019 Results for 6:29 AM CDT this procedure are in the results section. CBC (HEMOGRAM ONLY) Routine 01/14/2019 Results for 6:29 AM CDT this procedure are in the results section. MAGNESIUM Routine 01/14/2019 Results for 6:29 AM CDT this procedure are in the results section. PHOSPHORUS Routine 01/14/2019 Results for 6:29 AM CDT this procedure are in the results section. CALCIUM, IONIZED Routine 01/14/2019 Results for 6:29 AM CDT this procedure are in the results section. BASIC METABOLIC Routine 01/14/2019 Results for PANEL (7) 6:29 AM CDT this procedure are in the results section. APTT Routine 01/14/2019 Results for 1:14 AM CDT this procedure are in the results section. APTT Routine 01/13/2019 Results for 6:24 PM CDT this procedure are in the results section. IRON, TIBC, % SAT. Routine 01/13/2019 Results for (WITHOUT FERRITIN) 2:15 PM CDT this procedure are in the results section. APTT Routine 01/13/2019 Results for 11:10 AM CDT this procedure are in the results section. PROTHROMBIN TIME/INR Routine 01/13/2019 Results for 4:34 AM CDT this procedure are in the results section. CBC (HEMOGRAM ONLY) Routine 01/13/2019 Results for 4:34 AM CDT this procedure are in the results section. APTT Routine 01/13/2019 Results for 4:34 AM CDT this procedure are in the results section. MAGNESIUM Routine 01/13/2019 Results for 4:34 AM CDT this procedure are in the results section. PHOSPHORUS Routine 01/13/2019 Results for 4:34 AM CDT this procedure are in the results section. COMPREHENSIVE Routine 01/13/2019 Results for METABOLIC PANEL 4:34 AM CDT this procedure are in the results section. APTT Routine 01/12/2019 Results for 10:09 PM CDT this procedure are in the results section. PERIPHERAL VASCULAR 01/12/2019 REPORT - SCAN 9:13 PM CDT APTT Routine 01/12/2019 Results for 6:49 PM CDT this procedure are in the results section. PLATELET COUNT Routine 01/12/2019 Results for 6:49 PM CDT this procedure are in the results section. TRANSFUSION SERVICE 01/12/2019 REPORT - SCAN 5:52 PM CDT VENOUS DOPPLER LEG, Routine 01/12/2019 Results for LEFT 11:41 AM CDT this procedure are in the results section. PROTHROMBIN TIME/INR Routine 01/12/2019 Results for 6:30 AM CDT this procedure are in the results section. CBC (HEMOGRAM ONLY) Routine 01/12/2019 Results for 6:30 AM CDT this procedure are in the results section. MAGNESIUM Routine 01/12/2019 Results for 6:30 AM CDT this procedure are in the results section. PHOSPHORUS Routine 01/12/2019 Results for 6:30 AM CDT this procedure are in the results section. CALCIUM, IONIZED Routine 01/12/2019 Results for 6:30 AM CDT this procedure are in the results section. COMPREHENSIVE Routine 01/12/2019 Results for METABOLIC PANEL 6:30 AM CDT this procedure are in the results section. PREPARE Routine 01/11/2019 Results for LEUKO-REDUCED RBC 11:54 PM CDT this procedure are in the results section. TRANSFUSION SERVICE 01/11/2019 REPORT - SCAN 5:50 PM CDT URINALYSIS W/ REFLEX Routine 01/11/2019 Results for URINE CULTURE 5:46 PM CDT this procedure are in the results section. ANTIBODY Routine 01/11/2019 Results for IDENTIFICATION 3:26 PM CDT this procedure are in the results section. PROTHROMBIN TIME/INR Routine 01/11/2019 Results for 4:48 AM CDT this procedure are in the results section. CBC (HEMOGRAM ONLY) Routine 01/11/2019 Results for 4:48 AM CDT this procedure are in the results section. COMPREHENSIVE Routine 01/11/2019 Results for METABOLIC PANEL 4:48 AM CDT this procedure are in the results section. MAGNESIUM Routine 01/11/2019 Results for 4:48 AM CDT this procedure are in the results section. PHOSPHORUS Routine 01/11/2019 Results for 4:48 AM CDT this procedure are in the results section. CALCIUM, IONIZED Routine 01/11/2019 Results for 4:48 AM CDT this procedure are in the results section. TRANSFUSE Routine 01/11/2019 LEUKO-REDUCED RED 12:48 AM CDT BLOOD CELLS TRANSFUSE Routine 01/10/2019 LEUKO-REDUCED RED 8:48 PM CDT BLOOD CELLS POCT-GLUCOSE METER Routine 01/10/2019 Results for 5:58 PM CDT this procedure are in the results section. TRANSFUSION SERVICE 01/10/2019 REPORT - SCAN 5:50 PM CDT PREPARE RBC Routine 01/10/2019 Results for 5:07 PM CDT this procedure are in the results section. TYPE AND SCREEN, Routine 01/10/2019 Results for AUTOMATED 3:37 PM CDT this procedure are in the results section. APTT Routine 01/10/2019 Results for 11:36 AM CDT this procedure are in the results section. APTT Routine 01/10/2019 Results for 5:33 AM CDT this procedure are in the results section. PROTHROMBIN TIME/INR Routine 01/10/2019 Results for 5:33 AM CDT this procedure are in the results section. MAGNESIUM Routine 01/10/2019 Results for 5:33 AM CDT this procedure are in the results section. PHOSPHORUS Routine 01/10/2019 Results for 5:33 AM CDT this procedure are in the results section. CALCIUM, IONIZED Routine 01/10/2019 Results for 5:33 AM CDT this procedure are in the results section. BASIC METABOLIC Routine 01/10/2019 Results for PANEL (7) 5:33 AM CDT this procedure are in the results section. CBC (HEMOGRAM ONLY) Routine 01/10/2019 Results for 5:33 AM CDT this procedure are in the results section. APTT Routine 01/10/2019 Results for 3:07 AM CDT this procedure are in the results section. APTT Routine 01/09/2019 Results for 7:17 PM CDT this procedure are in the results section. PT/APTT Routine 01/09/2019 Results for 4:57 PM CDT this procedure are in the results section. CBC (HEMOGRAM ONLY) Routine 01/09/2019 Results for 8:10 AM CDT this procedure are in the results section. APTT Routine 01/09/2019 Results for 8:00 AM CDT this procedure are in the results section. PREPARE Routine 01/09/2019 Results for LEUKO-REDUCED RBC 6:48 AM CDT this procedure are in the results section. APTT Routine 01/09/2019 Results for 5:03 AM CDT this procedure are in the results section. PROTHROMBIN TIME/INR Routine 01/09/2019 Results for 5:03 AM CDT this procedure are in the results section. MAGNESIUM Routine 01/09/2019 Results for 5:03 AM CDT this procedure are in the results section. PHOSPHORUS Routine 01/09/2019 Results for 5:03 AM CDT this procedure are in the results section. CALCIUM, IONIZED Routine 01/09/2019 Results for 5:03 AM CDT this procedure are in the results section. HEPATIC FUNCTION Routine 01/09/2019 Results for PANEL 5:03 AM CDT this procedure are in the results section. BASIC METABOLIC Routine 01/09/2019 Results for PANEL (7) 5:03 AM CDT this procedure are in the results section. APTT Routine 01/08/2019 Results for 10:04 PM CDT this procedure are in the results section. TRANSFUSION SERVICE 01/08/2019 REPORT - SCAN 5:51 PM CDT VENOUS DOPPLER LEG, Routine 01/08/2019 Results for LEFT 5:00 PM CDT this procedure are in the results section. OCCULT BLOOD, STOOL Routine 01/08/2019 Results for 3:45 PM CDT this procedure are in the results section. APTT Routine 01/08/2019 Results for 2:37 PM CDT this procedure are in the results section. APTT Routine 01/08/2019 Results for 8:20 AM CDT this procedure are in the results section. CBC W/PLT COUNT & Routine 01/08/2019 Results for AUTO DIFFERENTIAL 4:50 AM CDT this procedure are in the results section. PROTHROMBIN TIME/INR Routine 01/08/2019 Results for 4:50 AM CDT this procedure are in the results section. CBC (HEMOGRAM ONLY) Routine 01/08/2019 Results for 4:50 AM CDT this procedure are in the results section. MAGNESIUM Routine 01/08/2019 Results for 4:50 AM CDT this procedure are in the results section. CBC W/PLT COUNT & Routine 01/08/2019 Results for AUTO DIFFERENTIAL 4:50 AM CDT this procedure are in the results section. PHOSPHORUS Routine 01/08/2019 Results for 4:50 AM CDT this procedure are in the results section. CALCIUM, IONIZED Routine 01/08/2019 Results for 4:50 AM CDT this procedure are in the results section. HEPATIC FUNCTION Routine 01/08/2019 Results for PANEL 4:50 AM CDT this procedure are in the results section. BASIC METABOLIC Routine 01/08/2019 Results for PANEL (7) 4:50 AM CDT this procedure are in the results section. APTT Routine 01/08/2019 Results for 12:34 AM CDT this procedure are in the results section. PREPARE RBC Routine 01/07/2019 Results for 11:54 PM CDT this procedure are in the results section. APTT Routine 01/07/2019 Results for 8:47 PM CDT this procedure are in the results section. TRANSFUSION SERVICE 01/07/2019 REPORT - SCAN 5:51 PM CDT PROTHROMBIN TIME/INR Routine 01/07/2019 Results for 12:58 PM CDT this procedure are in the results section. APTT Routine 01/07/2019 Results for 12:58 PM CDT this procedure are in the results section. PLATELET COUNT Routine 01/07/2019 Results for 12:58 PM CDT this procedure are in the results section. CBC W/PLT COUNT & Routine 01/07/2019 Results for AUTO DIFFERENTIAL 5:30 AM CDT this procedure are in the results section. HEPATIC FUNCTION Routine 01/07/2019 Results for PANEL 5:30 AM CDT this procedure are in the results section. BASIC METABOLIC Routine 01/07/2019 Results for PANEL (7) 5:30 AM CDT this procedure are in the results section. MAGNESIUM Routine 01/07/2019 Results for 5:30 AM CDT this procedure are in the results section. CBC W/PLT COUNT & Routine 01/07/2019 Results for AUTO DIFFERENTIAL 5:30 AM CDT this procedure are in the results section. PHOSPHORUS Routine 01/07/2019 Results for 5:30 AM CDT this procedure are in the results section. CALCIUM, IONIZED Routine 01/07/2019 Results for 5:30 AM CDT this procedure are in the results section. POTASSIUM STAT 01/06/2019 Results for 10:31 PM CDT this procedure are in the results section. HEMOGLOBIN AND STAT 01/06/2019 Results for HEMATOCRIT 10:31 PM CDT this procedure are in the results section. TRANSFUSE Routine 01/06/2019 LEUKO-REDUCED RED 6:08 PM CDT BLOOD CELLS TISSUE EXAM AP Routine 01/06/2019 Results for 5:56 PM CDT this procedure are in the results section. TRANSFUSION SERVICE 01/06/2019 REPORT - SCAN 5:50 PM CDT LAPAROSCOPY,CHOLECYS 01/06/2019 Calculus of gallbladder TECTOMY 3:40 PM CDT without cholecystitis without obstruction TRANSFUSE Routine 01/06/2019 LEUKO-REDUCED RED 3:27 PM CDT BLOOD CELLS APTT Routine 01/06/2019 Results for 4:59 AM CDT this procedure are in the results section. CBC W/PLT COUNT & Routine 01/06/2019 Results for AUTO DIFFERENTIAL 4:57 AM CDT this procedure are in the results section. MAGNESIUM Routine 01/06/2019 Results for 4:57 AM CDT this procedure are in the results section. CBC W/PLT COUNT & Routine 01/06/2019 Results for AUTO DIFFERENTIAL 4:57 AM CDT this procedure are in the results section. PHOSPHORUS Routine 01/06/2019 Results for 4:57 AM CDT this procedure are in the results section. CALCIUM, IONIZED Routine 01/06/2019 Results for 4:57 AM CDT this procedure are in the results section. BASIC METABOLIC Routine 01/06/2019 Results for PANEL (7) 4:57 AM CDT this procedure are in the results section. APTT Routine 01/05/2019 Results for 10:40 PM CDT this procedure are in the results section. TRANSFUSION SERVICE 01/05/2019 REPORT - SCAN 5:52 PM CDT R CATH 01/05/2019 Hypertension, 12:14 PM CDT unspecified type CBC W/PLT COUNT & Routine 01/05/2019 Results for AUTO DIFFERENTIAL 4:53 AM CDT this procedure are in the results section. TYPE AND SCREEN, Routine 01/05/2019 Results for AUTOMATED 4:53 AM CDT this procedure are in the results section. PHOSPHORUS Routine 01/05/2019 Results for 4:53 AM CDT this procedure are in the results section. CALCIUM, IONIZED Routine 01/05/2019 Results for 4:53 AM CDT this procedure are in the results section. COMPREHENSIVE Routine 01/05/2019 Results for METABOLIC PANEL 4:53 AM CDT this procedure are in the results section. CBC W/PLT COUNT & Routine 01/05/2019 Results for AUTO DIFFERENTIAL 4:53 AM CDT this procedure are in the results section. APTT Routine 01/04/2019 Results for 9:05 PM CDT this procedure are in the results section. PROTHROMBIN TIME/INR Routine 01/04/2019 Results for 6:39 PM CDT this procedure are in the results section. APTT Routine 01/04/2019 Results for 6:39 PM CDT this procedure are in the results section. COMPREHENSIVE Routine 01/04/2019 Results for METABOLIC PANEL 6:39 PM CDT this procedure are in the results section. APTT Routine 01/04/2019 Results for 10:02 AM CDT this procedure are in the results section. PREPARE Routine 01/04/2019 Results for LEUKO-REDUCED RBC 4:15 AM CDT this procedure are in the results section. APTT Routine 01/04/2019 Results for 3:46 AM CDT this procedure are in the results section. LIPASE Routine 01/04/2019 Results for 3:46 AM CDT this procedure are in the results section. APTT Routine 01/04/2019 Results for 2:00 AM CDT this procedure are in the results section. APTT Routine 01/03/2019 Results for 8:12 PM CDT this procedure are in the results section. XR CHEST 1 VIEW STAT 01/03/2019 Results for PORTABLE/BEDSIDE 6:51 PM CDT this procedure are in the results section. TRANSFUSION SERVICE 01/03/2019 REPORT - SCAN 5:50 PM CDT US ABDOMEN LIMITED STAT 01/03/2019 Results for 3:41 PM CDT this procedure are in the results section. APTT Routine 01/03/2019 Results for 12:50 PM CDT this procedure are in the results section. CBC W/PLT COUNT & Routine 01/03/2019 Results for AUTO DIFFERENTIAL 5:59 AM CDT this procedure are in the results section. APTT Routine 01/03/2019 Results for 5:59 AM CDT this procedure are in the results section. MAGNESIUM Routine 01/03/2019 Results for 5:59 AM CDT this procedure are in the results section. CBC W/PLT COUNT & Routine 01/03/2019 Results for AUTO DIFFERENTIAL 5:59 AM CDT this procedure are in the results section. PHOSPHORUS Routine 01/03/2019 Results for 5:59 AM CDT this procedure are in the results section. CALCIUM, IONIZED Routine 01/03/2019 Results for 5:59 AM CDT this procedure are in the results section. BASIC METABOLIC Routine 01/03/2019 Results for PANEL (7) 5:59 AM CDT this procedure are in the results section. APTT Routine 01/02/2019 Results for 10:54 PM CDT this procedure are in the results section. ECHOCARDIOGRAM 01/02/2019 REPORT - SCAN 9:10 PM CDT TRANSFUSION SERVICE 01/02/2019 REPORT - SCAN 5:50 PM CDT 2D ECHO W/ DOPPLER STAT(After 01/02/2019 Results for (CW/PW/COLOR) Hours Page 3:10 PM CDT this procedure Staff) are in the results section. REPORT OF PROCEDURE 01/02/2019 - ENDOSCOPY URL 1:34 PM CDT TISSUE EXAM AP Routine 01/02/2019 Results for 12:51 PM CDT this procedure are in the results section. FL ERCP Routine 01/02/2019 Results for 12:51 PM CDT this procedure are in the results section. PROCEDURE W/ C-ARM 01/02/2019 Gastrointestinal 10:00 AM CDT hemorrhage, unspecified gastrointestinal hemorrhage type ERCP 01/02/2019 Gastrointestinal 10:00 AM CDT hemorrhage, unspecified gastrointestinal hemorrhage type ERCP,BALLOON 01/02/2019 Gastrointestinal SWEEPING 10:00 AM CDT hemorrhage, unspecified gastrointestinal hemorrhage type CBC W/PLT COUNT & Routine 01/02/2019 Results for AUTO DIFFERENTIAL 4:28 AM CDT this procedure are in the results section. PROTHROMBIN TIME/INR Routine 01/02/2019 Results for 4:28 AM CDT this procedure are in the results section. COMPREHENSIVE Routine 01/02/2019 Results for METABOLIC PANEL 4:28 AM CDT this procedure are in the results section. CBC W/PLT COUNT & Routine 01/02/2019 Results for AUTO DIFFERENTIAL 4:28 AM CDT this procedure are in the results section. PREPARE RBC Routine 01/01/2019 Results for 11:55 PM CDT this procedure are in the results section. OCCULT BLOOD, STOOL Routine 01/01/2019 Results for 8:20 PM CDT this procedure are in the results section. TRANSFUSION SERVICE 01/01/2019 REPORT - SCAN 5:50 PM CDT PROTHROMBIN TIME/INR Routine 01/01/2019 Results for 3:30 PM CDT this procedure are in the results section. CBC (HEMOGRAM ONLY) Routine 01/01/2019 Results for 3:30 PM CDT this procedure are in the results section. ECG 12-LEAD Routine 01/01/2019 Results for 3:11 PM CDT this procedure are in the results section. ANTIBODY Routine 01/01/2019 Results for IDENTIFICATION 2:38 PM CDT this procedure are in the results section. CBC W/PLT COUNT & Routine 01/01/2019 Results for AUTO DIFFERENTIAL 6:10 AM CDT this procedure are in the results section. HEPATIC FUNCTION STAT 01/01/2019 Results for PANEL 6:10 AM CDT this procedure are in the results section. CBC W/PLT COUNT & Routine 01/01/2019 Results for AUTO DIFFERENTIAL 6:10 AM CDT this procedure are in the results section. MAGNESIUM Routine 01/01/2019 Results for 6:10 AM CDT this procedure are in the results section. PHOSPHORUS Routine 01/01/2019 Results for 6:10 AM CDT this procedure are in the results section. CALCIUM, IONIZED Routine 01/01/2019 Results for 6:10 AM CDT this procedure are in the results section. BASIC METABOLIC Routine 01/01/2019 Results for PANEL (7) 6:10 AM CDT this procedure are in the results section. PROTHROMBIN TIME/INR Routine 01/01/2019 Results for 6:10 AM CDT this procedure are in the results section. TRANSFUSE Routine 01/01/2019 LEUKO-REDUCED RED 3:45 AM CDT BLOOD CELLS TRANSFUSE Routine 01/01/2019 LEUKO-REDUCED RED 12:49 AM CDT BLOOD CELLS ABORH, MANUAL STAT 12/31/2018 Results for 5:36 PM CDT this procedure are in the results section. TYPE AND SCREEN, Routine 12/31/2018 Results for AUTOMATED 3:33 PM CDT this procedure are in the results section. LIPASE Routine 12/31/2018 Results for 3:33 PM CDT this procedure are in the results section. AMYLASE Routine 12/31/2018 Results for 3:33 PM CDT this procedure are in the results section. HEMOGLOBIN AND STAT 12/31/2018 Results for HEMATOCRIT 11:38 AM CDT this procedure are in the results section. CBC (HEMOGRAM ONLY) STAT 12/31/2018 Results for 11:38 AM CDT this procedure are in the results section. NM HEPATOBILIARY STAT 12/31/2018 Results for IMAGING 10:46 AM CDT this procedure are in the results section. CBC W/PLT COUNT & Routine 12/31/2018 Results for AUTO DIFFERENTIAL 8:59 AM CDT this procedure are in the results section. MAGNESIUM Routine 12/31/2018 Results for 8:59 AM CDT this procedure are in the results section. CBC W/PLT COUNT & Routine 12/31/2018 Results for AUTO DIFFERENTIAL 8:59 AM CDT this procedure are in the results section. PHOSPHORUS Routine 12/31/2018 Results for 8:59 AM CDT this procedure are in the results section. CALCIUM, IONIZED Routine 12/31/2018 Results for 8:59 AM CDT this procedure are in the results section. BASIC METABOLIC Routine 12/31/2018 Results for PANEL (7) 8:59 AM CDT this procedure are in the results section. PROTHROMBIN TIME/INR Routine 12/31/2018 Results for 8:59 AM CDT this procedure are in the results section. US ABDOMEN LIMITED Routine 12/31/2018 Results for 5:57 AM CDT this procedure are in the results section. CBC (HEMOGRAM ONLY) Routine 12/30/2018 Results for 6:58 PM CDT this procedure are in the results section. CBC W/PLT COUNT & Routine 12/30/2018 Results for AUTO DIFFERENTIAL 7:48 AM CDT this procedure are in the results section. MAGNESIUM Routine 12/30/2018 Results for 7:48 AM CDT this procedure are in the results section. CBC W/PLT COUNT & Routine 12/30/2018 Results for AUTO DIFFERENTIAL 7:48 AM CDT this procedure are in the results section. PHOSPHORUS Routine 12/30/2018 Results for 7:48 AM CDT this procedure are in the results section. CALCIUM, IONIZED Routine 12/30/2018 Results for 7:48 AM CDT this procedure are in the results section. BASIC METABOLIC Routine 12/30/2018 Results for PANEL (7) 7:48 AM CDT this procedure are in the results section. APTT STAT 12/30/2018 Results for 7:48 AM CDT this procedure are in the results section. PROTHROMBIN TIME/INR Routine 12/30/2018 Results for 7:48 AM CDT this procedure are in the results section. PLATELET COUNT Routine 12/30/2018 Results for 7:48 AM CDT this procedure are in the results section. APTT Routine 12/29/2018 Results for 9:19 PM CDT this procedure are in the results section. PROTHROMBIN TIME/INR Routine 12/29/2018 Results for 9:19 PM CDT this procedure are in the results section. XR ABDOMEN 1 VIEW Routine 12/29/2018 Results for 1:44 PM CDT this procedure are in the results section. XR CHEST 1 VIEW STAT 12/29/2018 Results for PORTABLE/BEDSIDE 1:44 PM CDT this procedure are in the results section. PT/APTT Routine 12/29/2018 Results for 1:21 PM CDT this procedure are in the results section. OCCULT BLOOD, STOOL Routine 12/29/2018 Results for 7:34 AM CDT this procedure are in the results section. CBC W/PLT COUNT & Routine 12/29/2018 Results for AUTO DIFFERENTIAL 7:28 AM CDT this procedure are in the results section. COMPREHENSIVE Routine 12/29/2018 Results for METABOLIC PANEL 7:28 AM CDT this procedure are in the results section. MAGNESIUM Routine 12/29/2018 Results for 7:28 AM CDT this procedure are in the results section. CBC W/PLT COUNT & Routine 12/29/2018 Results for AUTO DIFFERENTIAL 7:28 AM CDT this procedure are in the results section. PHOSPHORUS Routine 12/29/2018 Results for 7:28 AM CDT this procedure are in the results section. CALCIUM, IONIZED Routine 12/29/2018 Results for 7:28 AM CDT this procedure are in the results section. APTT Routine 12/29/2018 Results for 7:28 AM CDT this procedure are in the results section. PROTHROMBIN TIME/INR Routine 12/29/2018 Results for 7:28 AM CDT this procedure are in the results section. APTT Routine 12/29/2018 Results for 12:27 AM CDT this procedure are in the results section. APTT Routine 12/28/2018 Results for 10:40 PM CDT this procedure are in the results section. APTT Routine 12/28/2018 Results for 9:44 PM CDT this procedure are in the results section. OCCULT BLOOD, STOOL Routine 12/28/2018 Results for 3:21 PM CDT this procedure are in the results section. APTT Routine 12/28/2018 Results for 1:18 PM CDT this procedure are in the results section. VENOUS DOPPLER ARM, Routine 12/28/2018 Results for LEFT 8:42 AM CDT this procedure are in the results section. APTT Routine 12/28/2018 Results for 5:37 AM CDT this procedure are in the results section. CBC W/PLT COUNT & Routine 12/28/2018 Results for AUTO DIFFERENTIAL 3:15 AM CDT this procedure are in the results section. APTT Routine 12/28/2018 Results for 3:15 AM CDT this procedure are in the results section. MAGNESIUM Routine 12/28/2018 Results for 3:15 AM CDT this procedure are in the results section. CBC W/PLT COUNT & Routine 12/28/2018 Results for AUTO DIFFERENTIAL 3:15 AM CDT this procedure are in the results section. PHOSPHORUS Routine 12/28/2018 Results for 3:15 AM CDT this procedure are in the results section. CALCIUM, IONIZED Routine 12/28/2018 Results for 3:15 AM CDT this procedure are in the results section. BASIC METABOLIC Routine 12/28/2018 Results for PANEL (7) 3:15 AM CDT this procedure are in the results section. PROTHROMBIN TIME/INR Routine 12/28/2018 Results for 3:15 AM CDT this procedure are in the results section. HEPATIC FUNCTION Routine 12/28/2018 Results for PANEL 3:15 AM CDT this procedure are in the results section. APTT Routine 12/27/2018 Results for 8:11 PM CDT this procedure are in the results section. CALCIUM, IONIZED Routine 12/27/2018 Results for 5:20 AM CDT this procedure are in the results section. CBC W/PLT COUNT & Routine 12/27/2018 Results for AUTO DIFFERENTIAL 4:44 AM CDT this procedure are in the results section. PROTHROMBIN TIME/INR Routine 12/27/2018 Results for 4:44 AM CDT this procedure are in the results section. MAGNESIUM Routine 12/27/2018 Results for 4:44 AM CDT this procedure are in the results section. PHOSPHORUS Routine 12/27/2018 Results for 4:44 AM CDT this procedure are in the results section. BASIC METABOLIC Routine 12/27/2018 Results for PANEL (7) 4:44 AM CDT this procedure are in the results section. APTT Routine 12/27/2018 Results for 4:44 AM CDT this procedure are in the results section. CBC W/PLT COUNT & Routine 12/27/2018 Results for AUTO DIFFERENTIAL 4:44 AM CDT this procedure are in the results section. HEPATIC FUNCTION Routine 12/27/2018 Results for PANEL 4:44 AM CDT this procedure are in the results section. APTT Routine 12/26/2018 Results for 12:24 PM TEST ADMINISTRATOR this procedure are in the results section. CBC W/PLT COUNT & Routine 12/26/2018 Results for AUTO DIFFERENTIAL 6:05 AM TEST ADMINISTRATOR this procedure are in the results section. APTT Routine 12/26/2018 Results for 6:05 AM TEST ADMINISTRATOR this procedure are in the results section. MAGNESIUM Routine 12/26/2018 Results for 6:05 AM TEST ADMINISTRATOR this procedure are in the results section. PHOSPHORUS Routine 12/26/2018 Results for 6:05 AM TEST ADMINISTRATOR this procedure are in the results section. CALCIUM, IONIZED Routine 12/26/2018 Results for 6:05 AM TEST ADMINISTRATOR this procedure are in the results section. BASIC METABOLIC Routine 12/26/2018 Results for PANEL (7) 6:05 AM TEST ADMINISTRATOR this procedure are in the results section. CBC W/PLT COUNT & Routine 12/26/2018 Results for AUTO DIFFERENTIAL 6:05 AM TEST ADMINISTRATOR this procedure are in the results section. PROTHROMBIN TIME/INR Routine 12/26/2018 Results for 6:05 AM TEST ADMINISTRATOR this procedure are in the results section. HEPATIC FUNCTION Routine 12/26/2018 Results for PANEL 6:05 AM TEST ADMINISTRATOR this procedure are in the results section. POCT-GLUCOSE METER Routine 12/25/2018 Results for 4:38 PM TEST ADMINISTRATOR this procedure are in the results section. FL ERCP Routine 12/25/2018 Results for 4:00 PM TEST ADMINISTRATOR this procedure are in the results section. ERCP 12/25/2018 Choledocholithiasis 1:00 PM TEST ADMINISTRATOR Special Needs (C-ARM) ERCP,BALLOON SWEEPING 12/25/2018 1:00 PM TEST ADMINISTRATOR Choledocholithiasis Special Needs (C-ARM) PROCEDURE W/ C-ARM 12/25/2018 1:00 PM TEST ADMINISTRATOR Choledocholithiasis Special Needs (C-ARM) ERCP,BALLOON DILATATION 12/25/2018 1:00 PM TEST ADMINISTRATOR Choledocholithiasis Special Needs (C-ARM) CBC W/PLT COUNT & AUTO Routine 12/25/2018 2:04 AM Results for this DIFFERENTIAL TEST ADMINISTRATOR procedure are in the results section. APTT Routine 12/25/2018 2:04 AM Results for this TEST ADMINISTRATOR procedure are in the results section. COMPREHENSIVE METABOLIC Routine 12/25/2018 2:04 AM Results for this PANEL TEST ADMINISTRATOR procedure are in the results section. CBC W/PLT COUNT & AUTO Routine 12/25/2018 2:04 AM Results for this DIFFERENTIAL TEST ADMINISTRATOR procedure are in the results section. MAGNESIUM Routine 12/25/2018 2:04 AM Results for this TEST ADMINISTRATOR procedure are in the results section. PHOSPHORUS Routine 12/25/2018 2:04 AM Results for this TEST ADMINISTRATOR procedure are in the results section. CALCIUM, IONIZED Routine 12/25/2018 2:04 AM Results for this TEST ADMINISTRATOR procedure are in the results section. APTT Routine 12/24/2018 8:10 PM Results for this TEST ADMINISTRATOR procedure are in the results section. HEPATIC FUNCTION PANEL Routine 12/24/2018 12:05 PM Results for this TEST ADMINISTRATOR procedure are in the results section. APTT Routine 12/24/2018 12:05 PM Results for this TEST ADMINISTRATOR procedure are in the results section. CBC W/PLT COUNT & AUTO Routine 12/24/2018 8:17 AM Results for this DIFFERENTIAL TEST ADMINISTRATOR procedure are in the results section. PROTHROMBIN TIME/INR Routine 12/24/2018 8:17 AM Results for this TEST ADMINISTRATOR procedure are in the results section. MAGNESIUM Routine 12/24/2018 8:17 AM Results for this TEST ADMINISTRATOR procedure are in the results section. CBC W/PLT COUNT & AUTO Routine 12/24/2018 8:17 AM Results for this DIFFERENTIAL TEST ADMINISTRATOR procedure are in the results section. PHOSPHORUS Routine 12/24/2018 8:17 AM Results for this TEST ADMINISTRATOR procedure are in the results section. CALCIUM, IONIZED Routine 12/24/2018 8:17 AM Results for this TEST ADMINISTRATOR procedure are in the results section. BASIC METABOLIC PANEL (7) Routine 12/24/2018 8:17 AM Results for this TEST ADMINISTRATOR procedure are in the results section. PROTHROMBIN TIME/INR Routine 12/23/2018 12:38 PM Results for this TEST ADMINISTRATOR procedure are in the results section. HEPATIC FUNCTION PANEL Routine 12/23/2018 9:35 AM Results for this TEST ADMINISTRATOR procedure are in the results section. CBC W/PLT COUNT & AUTO Routine 12/23/2018 4:36 AM Results for this DIFFERENTIAL TEST ADMINISTRATOR procedure are in the results section. PROTHROMBIN TIME/INR Routine 12/23/2018 4:36 AM Results for this TEST ADMINISTRATOR procedure are in the results section. MAGNESIUM Routine 12/23/2018 4:36 AM Results for this TEST ADMINISTRATOR procedure are in the results section. CBC W/PLT COUNT & AUTO Routine 12/23/2018 4:36 AM Results for this DIFFERENTIAL TEST ADMINISTRATOR procedure are in the results section. PHOSPHORUS Routine 12/23/2018 4:36 AM Results for this TEST ADMINISTRATOR procedure are in the results section. CALCIUM, IONIZED Routine 12/23/2018 4:36 AM Results for this TEST ADMINISTRATOR procedure are in the results section. BASIC METABOLIC PANEL (7) Routine 12/23/2018 4:36 AM Results for this TEST ADMINISTRATOR procedure are in the results section. APTT Routine 12/23/2018 4:36 AM Results for this TEST ADMINISTRATOR procedure are in the results section. REPORT OF PROCEDURE - 12/22/2018 3:43 PM ENDOSCOPY URL TEST ADMINISTRATOR FL ERCP Routine 12/22/2018 3:30 PM Results for this TEST ADMINISTRATOR procedure are in the results section. ECG 12-LEAD Routine 12/22/2018 2:55 PM Results for this TEST ADMINISTRATOR procedure are in the results section. PROCEDURE W/ C-ARM 12/22/2018 2:00 PM Jaundice TEST ADMINISTRATOR ERCP,BILIARY STENT 12/22/2018 2:00 PM Jaundice TEST ADMINISTRATOR CALCIUM, IONIZED Routine 12/22/2018 5:02 AM Results for this TEST ADMINISTRATOR procedure are in the results section. CBC W/PLT COUNT & AUTO Routine 12/22/2018 5:01 AM Results for this DIFFERENTIAL TEST ADMINISTRATOR procedure are in the results section. PROTHROMBIN TIME/INR Routine 12/22/2018 5:01 AM Results for this TEST ADMINISTRATOR procedure are in the results section. APTT Routine 12/22/2018 5:01 AM Results for this TEST ADMINISTRATOR procedure are in the results section. MAGNESIUM Routine 12/22/2018 5:01 AM Results for this TEST ADMINISTRATOR procedure are in the results section. CBC W/PLT COUNT & AUTO Routine 12/22/2018 5:01 AM Results for this DIFFERENTIAL TEST ADMINISTRATOR procedure are in the results section. PHOSPHORUS Routine 12/22/2018 5:01 AM Results for this TEST ADMINISTRATOR procedure are in the results section. BASIC METABOLIC PANEL (7) Routine 12/22/2018 5:01 AM Results for this TEST ADMINISTRATOR procedure are in the results section. APTT Routine 12/21/2018 9:47 PM Results for this TEST ADMINISTRATOR procedure are in the results section. APTT Routine 12/21/2018 1:42 PM Results for this TEST ADMINISTRATOR procedure are in the results section. CBC W/PLT COUNT & AUTO Routine 12/21/2018 5:09 AM Results for this DIFFERENTIAL TEST ADMINISTRATOR procedure are in the results section. PROTHROMBIN TIME/INR Routine 12/21/2018 5:09 AM Results for this TEST ADMINISTRATOR procedure are in the results section. MAGNESIUM Routine 12/21/2018 5:09 AM Results for this TEST ADMINISTRATOR procedure are in the results section. PHOSPHORUS Routine 12/21/2018 5:09 AM Results for this TEST ADMINISTRATOR procedure are in the results section. CALCIUM, IONIZED Routine 12/21/2018 5:09 AM Results for this TEST ADMINISTRATOR procedure are in the results section. BASIC METABOLIC PANEL (7) Routine 12/21/2018 5:09 AM Results for this TEST ADMINISTRATOR procedure are in the results section. VITAMIN B12 AND FOLATE Routine 12/21/2018 5:09 AM Results for this TEST ADMINISTRATOR procedure are in the results section. CBC W/PLT COUNT & AUTO Routine 12/21/2018 5:09 AM Results for this DIFFERENTIAL TEST ADMINISTRATOR procedure are in the results section. IRON, TIBC, % SAT. Routine 12/21/2018 5:09 AM Results for this (WITHOUT FERRITIN) TEST ADMINISTRATOR procedure are in the results section. CBC W/PLT COUNT & AUTO Routine 12/20/2018 5:01 AM Results for this DIFFERENTIAL TEST ADMINISTRATOR procedure are in the results section. PROTHROMBIN TIME/INR Routine 12/20/2018 5:01 AM Results for this TEST ADMINISTRATOR procedure are in the results section. MAGNESIUM Routine 12/20/2018 5:01 AM Results for this TEST ADMINISTRATOR procedure are in the results section. PHOSPHORUS Routine 12/20/2018 5:01 AM Results for this TEST ADMINISTRATOR procedure are in the results section. CALCIUM, IONIZED Routine 12/20/2018 5:01 AM Results for this TEST ADMINISTRATOR procedure are in the results section. CBC W/PLT COUNT & AUTO Routine 12/20/2018 5:01 AM Results for this DIFFERENTIAL TEST ADMINISTRATOR procedure are in the results section. COMPREHENSIVE METABOLIC Routine 12/20/2018 5:01 AM Results for this PANEL TEST ADMINISTRATOR procedure are in the results section. COMPREHENSIVE METABOLIC STAT 12/20/2018 5:01 AM Results for this PANEL TEST ADMINISTRATOR procedure are in the results section. LIPASE Routine 12/19/2018 12:26 PM Results for this TEST ADMINISTRATOR procedure are in the results section. HEPATIC FUNCTION PANEL Routine 12/19/2018 12:26 PM Results for this TEST ADMINISTRATOR procedure are in the results section. CBC W/PLT COUNT & AUTO Routine 12/19/2018 4:23 AM Results for this DIFFERENTIAL TEST ADMINISTRATOR procedure are in the results section. PROTHROMBIN TIME/INR Routine 12/19/2018 4:23 AM Results for this TEST ADMINISTRATOR procedure are in the results section. MAGNESIUM Routine 12/19/2018 4:23 AM Results for this TEST ADMINISTRATOR procedure are in the results section. CBC W/PLT COUNT & AUTO Routine 12/19/2018 4:23 AM Results for this DIFFERENTIAL TEST ADMINISTRATOR procedure are in the results section. PHOSPHORUS Routine 12/19/2018 4:23 AM Results for this TEST ADMINISTRATOR procedure are in the results section. CALCIUM, IONIZED Routine 12/19/2018 4:23 AM Results for this TEST ADMINISTRATOR procedure are in the results section. BASIC METABOLIC PANEL (7) Routine 12/19/2018 4:23 AM Results for this TEST ADMINISTRATOR procedure are in the results section. URINALYSIS W/ REFLEX Routine 12/18/2018 4:21 PM Results for this URINE CULTURE TEST ADMINISTRATOR procedure are in the results section. BLOOD CULTURE Routine 12/18/2018 12:42 PM Results for this TEST ADMINISTRATOR procedure are in the results section. BLOOD CULTURE Routine 12/18/2018 12:41 PM Results for this TEST ADMINISTRATOR procedure are in the results section. XR CHEST PA OR AP 1 VIEW Routine 12/18/2018 12:05 PM Results for this IN DEPT. TEST ADMINISTRATOR procedure are in the results section. PROTHROMBIN TIME/INR Routine 12/18/2018 8:07 AM Results for this TEST ADMINISTRATOR procedure are in the results section. US ABDOMEN LIMITED KAYKAY 12/18/2018 4:45 AM Results for this TEST ADMINISTRATOR procedure are in the results section. CBC W/PLT COUNT & AUTO STAT 12/17/2018 11:31 AM Results for this DIFFERENTIAL TEST ADMINISTRATOR procedure are in the results section. CBC W/PLT COUNT & AUTO STAT 12/17/2018 11:31 AM Results for this DIFFERENTIAL TEST ADMINISTRATOR procedure are in the results section. PROTHROMBIN TIME/INR STAT 12/17/2018 11:14 AM Results for this TEST ADMINISTRATOR procedure are in the results section. COMPREHENSIVE METABOLIC STAT 12/17/2018 11:14 AM Results for this PANEL TEST ADMINISTRATOR procedure are in the results section. after 05/13/2018 Results EKG-SCANNED (01/22/2019 1:22 PM CDT) Narrative Performed At CARDIAC CATH REPORT - SCAN (01/22/2019 1:22 PM CDT) Narrative Performed At RHYTHM STRIP - SCAN (01/22/2019 1:22 PM CDT) Narrative Performed At POC-Glucose meter (01/21/2019 8:54 AM CDT)Only the most recent of11 resultswithin the time period is included. POC-Glucose Meter 152 (H)Comment: TESTED AT 70 - 110 mg/dL [facility] [id number] [facility] [id number] Specimen Blood Performing Organization Address City/[facility]/Zipcode Phone Number [facility] [address] [place] [address] MEDIA Daily Prothrombin time/INR while on warfarin (01/21/2019 5:28 AM CDT)Only the most recent of35 resultswithin the time period is included. Protime 26.4 (H) 11.7 - 14.7 seconds [facility] INR 2.4 <=5.9 [facility] Specimen Blood Narrative Performed At RECOMMENDED COUMADIN/WARFARIN INR THERAPY [facility] RANGES STANDARD DOSE: 2.0 - 3.0 Includes: PROPHYLAXIS for venous thrombosis, systemic embolization; TREATMENT for venous thrombosis and/or pulmonary embolus. HIGH RISK: Target INR is 2.5-3.5 for patients with mechanical heart valves. While on warfarin. Performing Organization Address [facility] Phone Number [place] [phone] [place] [address] [phone] MEDIA CBC (hemogram only) (01/21/2019 5:28 AM CDT)Only the most recent of17 resultswithin the time period is included. WBC 6.7 3.5 - 10.5 K/L [facility] RBC 3.21 (L) 3.93 - 5.22 M/L [facility] Hemoglobin 9.7 (L) 11.2 - 15.7 GM/DL [facility] Hematocrit 31.3 (L) 34.1 - 44.9 % [facility] MCV 97.5 (H) 79.4 - 94.8 fL [facility] MCH 30.2 25.6 - 32.2 pg [facility] MCHC 31.0 (L) 32.2 - 35.5 GM/DL [facility] RDW 19.3 (H) 11.7 - 14.4 % [facility] Platelets 175 150 - 450 K/CU MM [facility] MPV 8.9 (L) 9.4 - 12.3 fL [facility] nRBC 0 0 - 0 /100 WBC [facility] Specimen Blood Performing Organization Address City/State/Zipcode Phone Number [facility] [address] [place] [address] CENTER CBC with platelet count + automated diff (01/21/2019 12:51 AM CDT)Only the most recent of29 resultswithin the time period is included. WBC 7.1 3.5 - 10.5 K/L [facility] RBC 3.16 (L) 3.93 - 5.22 M/L [facility] Hemoglobin 9.7 (L) 11.2 - 15.7 GM/DL [facility] Hematocrit 30.6 (L) 34.1 - 44.9 % [facility] MCV 96.8 (H) 79.4 - 94.8 fL [facility] MCH 30.7 25.6 - 32.2 pg [facility] MCHC 31.7 (L) 32.2 - 35.5 GM/DL [facility] RDW 18.6 (H) 11.7 - 14.4 % [facility] Platelets 152 150 - 450 K/CU MM [facility] MPV 8.5 (L) 9.4 - 12.3 fL [facility] nRBC 0 0 - 0 /100 WBC [facility] % Neutros 65 % [facility] % Lymphs 17 % [facility] % Monos 12 % [facility] % Eos 3 % [facility] % Baso 0 % [facility] # Neutros 4.64 1.56 - 6.13 K/L [facility] # Lymphs 1.22 1.18 - 3.74 K/L [facility] # Monos 0.86 (H) 0.24 - 0.36 K/L [facility] # Eos 0.24 0.04 - 0.36 K/L [facility] # Baso 0.03 0.01 - 0.08 K/L [facility] Immature Granulocytes-Relative 2 (H) 0 - 1 % [facility] Specimen Blood Performing Organization Address City/[facility]/Zipcode Phone Number [address] [phone] MEDIA Hemoglobin and hematocrit (01/21/2019 12:51 AM CDT)Only the most recent of10 resultswithin the time period is included. Hemoglobin 9.7 (L) 11.2 - 15.7 GM/DL [facility] Hematocrit 30.6 (L) 34.1 - 44.9 % [facility] Specimen Blood Performing Organization Address City/[facility] Phone Number [phone] abdomen/pelvis without iv contrast (01/20/2019 3:37 PM CDT)Only the most recent of2 resultswithin the time period is included. Specimen Narrative Performed At FINAL REPORT [employer] ABDOMINAL AND PELVIS CT DATED 01/20/2019 COMPARISON: January 15, 2019 CLINICAL INFORMATION:retroperitoneal hematoma. TECHNIQUE:Axial images of the abdomen and pelvis were obtained from diaphragm to the pubic symphysis without contrast. This exam was performed according to our departmental dose-optimization program, which includes automated exposure control, adjustment of the mA and/or kV according to patient size and/or use of interactive reconstruction technique. COMMENT: There is a small right pleural effusion. Liver and spleen are normal in size without focal abnormality. Calcified granulomas are seen in the liver and the spleen. Gallbladder is surgically absent. No biliary dilatation is noted. Pancreas and adrenals are unremarkable. Both kidneys are normal in size. No hydronephrosis, hydroureter, urolithiasis is seen. Diverticular disease is seen in the large bowel without diverticulitis. The small bowel is normal in caliber. Appendix is not visualized. Again noted a left retroperitoneal hematoma measuring approximately 7.8 x 9.5 x 10 cm, previously 7.9 x 9.9 x 12.4 cm. The hematoma involves the left psoas, left iliacus musculature, and left inferior paracolic gutter. Atherosclerotic calcification is seen in the abdominal aorta and bilateral iliac arteries. IMPRESSION: 1. Stable left retroperitoneal hematoma. 2. Small right pleural effusion with right lower lobe subsegmental atelectasis. 3. Cardiomegaly. 4. Calcified granulomas in the liver and the spleen. 5. Diverticulosis without diverticulitis. Signed: Agustin White MD Report Verified Date/Time:01/20/2019 18:25:12 Reading Location: [facility] C013Y CT Body Reading Room Procedure Note Interface, External Ris In - 01/20/2019 6:27 PM CDT FINAL REPORT ABDOMINAL AND PELVIS CT DATED 01/20/2019 COMPARISON: January 15, 2019 CLINICAL INFORMATION: retroperitoneal hematoma. TECHNIQUE: Axial images of the abdomen and pelvis were obtained from diaphragm to the pubic symphysis without contrast. This exam was performed according to our departmental dose-optimization program, which includes automated exposure control, adjustment of the mA and/or kV according to patient size and/or use of interactive reconstruction technique. COMMENT: There is a small right pleural effusion. Liver and spleen are normal in size without focal abnormality. Calcified granulomas are seen in the liver and the spleen. Gallbladder is surgically absent. No biliary dilatation is noted. Pancreas and adrenals are unremarkable. Both kidneys are normal in size. No hydronephrosis, hydroureter, urolithiasis is seen. Diverticular disease is seen in the large bowel without diverticulitis. The small bowel is normal in caliber. Appendix is not visualized. Again noted a left retroperitoneal hematoma measuring approximately 7.8 x 9.5 x 10 cm, previously 7.9 x 9.9 x 12.4 cm. The hematoma involves the left psoas, left iliacus musculature, and left inferior paracolic gutter. Atherosclerotic calcification is seen in the abdominal aorta and bilateral iliac arteries. IMPRESSION: 1. Stable left retroperitoneal hematoma. 2. Small right pleural effusion with right lower lobe subsegmental atelectasis. 3. Cardiomegaly. 4. Calcified granulomas in the liver and the spleen. 5. Diverticulosis without diverticulitis. Signed: Agustin White MD Report Verified Date/Time: 01/20/2019 18:25:12 Reading Location: [facility] B1 C013Y CT Body Reading Room Performing Organization Address [facility] Phone Number [facility] Calcium, Ionized (01/20/2019 4:55 AM CDT)Only the most recent of30 resultswithin the time period is included. Calcium, Ion 1.10 (L) 1.12 - 1.27 mmol/L [facility] pH, Blood 7.45 [facility] Specimen Blood Performing Organization Address [facility] Phone Number [address] [address] CENTER Phosphorus (01/20/2019 4:55 AM CDT)Only the most recent of31 resultswithin the time period is included. Phosphorus 2.6 2.3 - 4.7 mg/dL [facility] Specimen Blood Performing Organization Address [facility] Phone Number [address] [address] [phone] CENTER Magnesium (01/20/2019 4:55 AM CDT)Only the most recent of30 resultswithin the time period is included. Magnesium 1.6 1.6 - 2.6 mg/dL [facility] Specimen Blood Performing Organization Address [facility] Phone Number [address] [address] CENTER Basic Metabolic Panel (01/20/2019 4:55 AM CDT)Only the most recent of24 resultswithin the time period is included. Sodium 132 (L) 136 - 145 meq/L [facility] Potassium 4.3 3.5 - 5.1 meq/L [facility] Chloride 100 98 - 107 meq/L [facility] CO2 27 22 - 29 meq/L [facility] BUN 9 7 - 21 mg/dL [facility] Creatinine 0.65 0.57 - 1.25 mg/dL [facility] Glucose 84 70 - 105 mg/dL [facility] Calcium 8.9 8.4 - 10.2 mg/dL [facility] EGFR 86Comment: ESTIMATED GFR IS mL/min/1.73 sq m [facility] NOT ACCURATE CREATININE [facility] CLEARANCE IN PREDICTING GLOMERULAR FILTRATION RATE. ESTIMATED GFR IS NOT APPLICABLE FOR DIALYSIS PATIENTS. Specimen Blood Performing Organization Address City/[facility]/Zipcode Phone Number [address] [address] MEDIA aPTT (01/19/2019 4:57 AM CDT)Only the most recent of58 resultswithin the time period is included. PTT 86.9 (H) 22.5 - 36.0 seconds [facility] Specimen Blood Narrative Performed At While on warfarin. [facility] Performing Organization Address City/[facility]/Zipcode Phone Number [facility] [address] [place] [address] MEDIA TRANSFUSION SERVICE REPORT - SCAN (01/17/2019 6:00 PM CDT)Only the most recent of12 resultswithin the time period is included. Narrative Performed At Prepare Leuko-Red RBC (01/16/2019 11:54 PM CDT)Only the most recent of4 resultswithin the time period is included. Unit ABO A Pos [place] UNIT NUMBER [id number] [place] Status TX_TIMEINCHART [place] Blood Bank Product RED BLOOD CELLS [place] PRODUCT CODE [id number] [place] Unit ABO A Pos [place] UNIT NUMBER [id number] [place] Status TX_TIMEINCHART [place] Blood Bank Product RED BLOOD CELLS [place] PRODUCT CODE [id number] [place] CROSSMATCH COMPATIBLE [place] CROSSMATCH COMPATIBLE S[place] Specimen Other Performing Organization Address City/[facility] Phone Number [employer] [place] Transfuse Leuko-Red RBC (01/16/2019 2:34 AM CDT)Only the most recent of12 resultswithin the time period is included.Type and screen, automated (2018 2:02 PM CDT)Only the most recent of4 resultswithin the time period is included. ABO/RH AUTOMATED (BEAKER) A POSITIVE [facility] Ab Scrn POSITIVEComment: [facility] anti-E;Antibody identified [facility] within 7 days Specimen Blood Performing Organization Address [facility] Phone Number [address] [address] REPORT OF PROCEDURE - ENDOSCOPY URL (01/14/2019 12:13 PM CDT) Narrative Performed At Iron, TIBC, % sat. (without ferritin) (01/13/2019 2:15 PM CDT)Only the most recent of2 resultswithin the time period is included. Iron 35.0 (L) 40.0 - 160.0 ug/dL [facility] TIBC 225 (L) 250 - 450 ug/dL [facility] Iron % Saturation 16 (L) 20 - 55 % [facility] Specimen Blood Performing Organization Address [facility] Phone Number [address] [address] [phone] MEDIA Comprehensive metabolic panel (01/13/2019 4:34 AM CDT)Only the most recent of11 resultswithin the time period is included. Protein, Total 4.7 (L) 6.0 - 8.3 gm/dL [facility] Albumin 2.2 (L) 3.5 - 5.0 g/dL [facility] Alkaline Phosphatase 66 40 - 150 U/L [facility] Total Bilirubin 1.7 (H) 0.2 - 1.2 mg/dL [facility] Sodium 135 (L) 136 - 145 meq/L [facility] Potassium 5.0 3.5 - 5.1 meq/L [facility] Chloride 105 98 - 107 meq/L [facility] CO2 24 22 - 29 meq/L [facility] BUN 16 7 - 21 mg/dL [facility] Creatinine 0.71 0.57 - 1.25 mg/dL [facility] Glucose 95 70 - 105 mg/dL [facility] Calcium 8.5 8.4 - 10.2 mg/dL [facility] AST 48 (H) 5 - 34 U/L [facility] ALT 26 6 - 55 U/L [facility] EGFR 78Comment: ESTIMATED GFR mL/min/1.[address] [facility] IS NOT ACCURATE [facility] CREATININE CLEARANCE IN PREDICTING GLOMERULAR FILTRATION RATE. ESTIMATED GFR IS NOT APPLICABLE FOR DIALYSIS PATIENTS. Specimen Blood Performing Organization Address City/State/Zipcode Phone Number [facility] [address] [place] [address] [phone] MEDIA PERIPHERAL VASCULAR REPORT - SCAN (01/12/2019 9:13 PM CDT) Narrative Performed At Platelet count (01/12/2019 6:49 PM CDT)Only the most recent of3 resultswithin the time period is included. Platelets 160 150 - 450 K/CU MM [facility] Specimen Blood Performing Organization Address City/State/Zipcode Phone Number [facility] [address] [place] [address] CENTER Venous doppler leg, left (01/12/2019 11:41 AM CDT)Only the most recent of2 resultswithin the time period is included. Ejection Fraction [facility] [employer] [facility] Specimen Impressions Performed At [facility] [employer] [facility] Left Impression 1. There is a Small subacute thrombus of the common femoral vein.(seen previously). 2. There is no deep venous obstruction in the profunda femoral, femoral, popliteal, posterior tibial or peroneal veins. 3. There is no superficial venous obstruction in the great saphenous vein. Conclusions Summary Venous duplex imaging and compression of the left lower extremity were performed. The veins were adequately visualized. The left deep venous system was positive with a SMALL partial subacute thrombus (seen previously). The left superficial venous system was patent and compressible with no evidence of thrombus. Study compared to 01/08/2019. No change. Signature Velocities are measured in cm/s ; Diameters are measured in cm Narrative Performed At [facility] - Lower Extremities DVT Study [facility] [employer] CPA Demographics Patient Name Gume CAAL of Study 01/12/2019 [id number] Age 88 Visit Number [id number] GenderFemale Accession Number [id number] [facility] 1930 [id number] Physician SonographFlakito Malloy.InterpretingEly Hinson RVT, PRAVEEN Romero MD Procedure Type of Study: Veins: Lower Extremities DVT Study, VENOUS DOPPLER LEG, LEFT. Indications for Study:DVT. Patient Status:Routine. Study Location:Vascular Lab. Technical Quality:Adequate visualization. - Results were reported to:Known previous partial subacute DVT. (01/08/2019).. Risk Factors History of Disease +---------+----+ + !Diagnosis!Date!Comments ! +---------+----+ + !Other!!CAD, HTN, DM, CANCER, COPD, CVA, CHF ! +---------+----+ + Procedure Note Interface, External Ris In - 01/12/2019 11:58 AM CDT [facility] - Lower Extremities DVT Study Demographics Patient Name ANN-MARIE CAAL Date of Study 01/12/2019 Age 88 Visit Number [id number] Gender Female Accession Number [id number] Date of 1930 Referring [facility] Room Number [id number] Physician Hub Lead Harpreet Malloy. Interpreting Ely Hinson RVT, PRAVEEN Romero MD Procedure Type of Study: Veins: Lower Extremities DVT Study, VENOUS DOPPLER LEG, LEFT. Indications for Study:DVT. Patient Status:Routine. Study Location:Vascular Lab. Technical Quality:Adequate visualization. - Results were reported to:Known previous partial subacute DVT. (01/08/2019).. Risk Factors History of Disease +---------+----+ + !Diagnosis!Date!Comments ! +---------+----+ + !Other ! !CAD, HTN, DM, CANCER, COPD, CVA, CHF ! +---------+----+ + Impressions Left Impression 1. There is a Small subacute thrombus of the common femoral vein.(seen previously). 2. There is no deep venous obstruction in the profunda femoral, femoral, popliteal, posterior tibial or peroneal veins. 3. There is no superficial venous obstruction in the great saphenous vein. Conclusions Summary Venous duplex imaging and compression of the left lower extremity were performed. The veins were adequately visualized. The left deep venous system was positive with a SMALL partial subacute thrombus (seen previously). The left superficial venous system was patent and compressible with no evidence of thrombus. Study compared to 01/08/2019. No change. Signature Velocities are measured in cm/s ; Diameters are measured in cm Performing Organization Address City/State/Zipcode Phone Number [facility] [employer] [facility] Urinalysis w/Microscopic + Reflex to Culture (01/11/2019 5:46 PM CDT)Only the most recent of2 resultswithin the time period is included. Color, UA Yellow [facility] Clarity, UA Clear [facility] Specific [place], UA 1.013 1.001 - 1.035 [facility] pH, UA 5.5 5.0 - 8.0 [facility] Protein, UA 10 mg/dL (A) Negative [facility] Glucose, UA Negative Negative [facility] Ketones, UA Negative Negative [facility] Bilirubin, UA Negative Negative [facility] Blood, UA Negative Negative [facility] Nitrite, UA Negative Negative [facility] Leukocytes, UA Small (A) Negative [facility] Urobilinogen, UA 0.2 0.2 - 1.0 mg/dL [facility] RBC, UA <1 /HPF [facility] WBC, UA 4 /HPF [facility] Mucus Many [facility] Squam Epithel, UA 3 /HPF [facility] Hyaline Casts, UA 13 /LPF [facility] Specimen Source [facility] Specimen Urine Performing Organization Address [facility] Phone Number [facility] [address] [place] [address] CENTER Antibody identification (01/11/2019 3:26 PM CDT)Only the most recent of2 resultswithin the time period is included. ANTIBODY ID (BEAKER) Anti-E [place] Antibody Consult SIGNED OUTComment: Anti E causes RBC [place] injury, transfuse E negative RBCs.Electronic Signature: Laurie Chambers M.D. Specimen Performing Organization Address [facility] Phone Number [employer] Prepare RBC (01/10/2019 5:07 PM CDT)Only the most recent of3 resultswithin the time period is included. Unit ABO O Pos [place] UNIT NUMBER [id number] [place] Status READY [place] Blood Bank Product RED BLOOD CELLS [place] PRODUCT CODE [id number] [place] Unit ABO O Pos [place] UNIT NUMBER [id number] [place] Status READY [place] Blood Bank Product RED BLOOD CELLS [place] PRODUCT CODE [id number] [place] CROSSMATCH COMPATIBLE S[place] CROSSMATCH COMPATIBLE [place] Performing Organization Address [facility] Phone Number [employer] PT/aPTT (01/09/2019 4:57 PM CDT)Only the most recent of2 resultswithin the time period is included. Protime 35.8 (H) 11.7 - 14.7 seconds [facility] INR 3.6 <=5.9 [facility] PTT 143.0 (H) 22.5 - 36.0 seconds [facility] Specimen Blood Narrative Performed At RECOMMENDED COUMADIN/WARFARIN INR THERAPY [facility] RANGES STANDARD DOSE: 2.0 - 3.0 Includes: PROPHYLAXIS for venous thrombosis, systemic embolization; TREATMENT for venous thrombosis and/or pulmonary embolus. HIGH RISK: Target INR is 2.5-3.5 for patients with mechanical heart valves. Performing Organization Address [facility]/State/Zipcode Phone Number [address] [address] MEDIA Hepatic function panel (01/09/2019 5:03 AM CDT)Only the most recent of10 resultswithin the time period is included. Protein, Total 5.1 (L) 6.0 - 8.3 gm/dL [facility] Albumin 2.7 (L) 3.5 - 5.0 g/dL [facility] Total Bilirubin 1.0 0.2 - 1.2 mg/dL [facility] Bilirubin, Direct 0.6 (H) 0.1 - 0.5 mg/dL [facility] Alkaline Phosphatase 60 40 - 150 U/L [facility] AST 34 5 - 34 U/L [facility] ALT 17 6 - 55 U/L [facility] Specimen Blood Performing Organization Address [facility] Phone Number [address] [address] [phone] MEDIA Occult blood, stool (01/08/2019 3:45 PM CDT)Only the most recent of4 resultswithin the time period is included. Occult blood Positive (A) Negative [facility] Specimen Stool Performing Organization Address City/[facility] Phone Number [address] [address] CENTER Potassium (01/06/2019 10:31 PM CDT) Potassium 3.3 (L) 3.5 - 5.1 meq/L [facility] Specimen Blood Performing Organization Address City/[facility] Phone Number [address] [address] [phone] MEDIA Tissue Exam (01/06/2019 5:56 PM CDT)Only the most recent of2 resultswithin the time period is included. Case Report Surgical Pathology Report Case: [id number] [facility] Authorizing Provider:Scooby Katz, Collected: 01/06/[id number] [facility] Ordering Location: [facility] PERIOPERATIVE Received: 01/07/2019 0800 SERVICES Pathologist: Aditi Hardy MD Specimens: A) - Gallbladder B) - Biopsy, Liver ADDENDUM ADDENDUM FOR RESULTS OF LIVER BIOPSY [facility] FINAL DIAGNOSIS: A. GALLBLADDER, CHOLECYSTECTOMY: - SEE PREVIOUS REPORT; NO CHANGE TO PREVIOUS REPORT B. LIVER, RANDOM NEEDLE CORE BIOPSY: - LIVER PARENCHYMA WITH NO SIGNIFICANT INFLAMMATION OR STEATOSIS - MILD PORTAL AND PERIPORTAL FIBROSIS COMMENT: In this 88-year-old male with abdominal pain, status post ERCP, sphincterotomy, and stone extraction, calculus of the gallbladder, cholecystitis , and liver function tests not available, the fin dings are not specific. According to the history, the abnormal liver function tests had resolved by 01/16/2019 (corrected date). This case is reviewed , and the detailed microscopic description provided b y Dr. Nataly Vivas M.D., [facility], GI pathologist. MICROSCOPIC DESCRIPTION: A single liver core shows fixation/preservation artifact. The lobules show no significant steatosis and preserved hepatic parenchyma. There is no significant inflammation in the lobules noted. The portal triads are small with some portal fibrosis. The bile ducts at the portal triads appear to be preserved. A PAS-diastase stain is negative for alpha-1 antitrypsin globules. The trichrome and reticulin stains show some portal and periportal fibrosis. The iron stain is negative for decreased iron. MO/ew DIAGNOSIS A. GALLBLADDER, CHOLECYSTECTOMY: [facility] - CHRONIC CHOLECYSTITIS, MARKED, AND CHOLELITHIASIS [facility] B. LIVER, CORE BIOPSY: - PENDING Signing Pathologist Direct Phone Line: [phone] CPT Code(s) MO/ew [facility] [address] [facility] 990[address] x1 [id number] x4 CLINICAL HISTORY Calculus of gallbladder without [facility] cholecystitis without [facility] obstruction SPECIMEN SOURCE A. Gallbladder; B. Liver biopsy [facility] GROSS DESCRIPTION The specimen is received in two containers of formalin both labeled with the patient's information. [facility] Part A labeled "gallbladder" consists of an intact gallbladder measuring 6.5 x 3 cm with a gallbladder wall thickness of 0.2 cm. The gallbladder lumen is filled with guallpa-red thick bile with a single gr een smooth stone measuring 0.6 cm. The mucosa is guallpa-red and velvety with no abnormalities. Section code: A1, margin en face; A2, gallbladder wall. Part B labeled "liver biopsy" consists of a guallpa core measuring 1.8 cm in length, submitted entirely B1. CG/pl MICROSCOPIC DESCRIPTION A. The gallbladder shows extensive and mostly chronic cholecystitis with an associated plasma cell infiltrate. No other significant features are noted. There are associated prominent Rokitansky-Aschoff sinuses. [facility] B. The liver biopsy results will follow in an addendum report. SPECIAL STUDIES The interpretation of this case included the use of immunohistochemistry or special stains. [facility] Immunohistochemistry technical testing was performed at [facility]ology Laboratory where it was developed and its performance characteristics were determined. It has not be en cleared or approved by the U.S. Food and Drug Administration. The FDA has determined that such clearance or approval is not necessary. The test is used for clinical purposes. It should not be regarde d as investigational or for research. This laboratory is certified under the Clinical Laboratory Improvement Amendments of 1988 (CLIA-88) as qualified to perform high complexity clinical laboratory testing. Specimen Tissue Tissue - Biopsy, Liver Performing Organization Address City/[facility]/Zipcode Phone Number [place] [phone] [place] [address] [phone] MEDIA Lipase (01/04/2019 3:46 AM CDT)Only the most recent of3 resultswithin the time period is included. Lipase 104 (H) 8 - 78 U/L [facility] Specimen Blood Performing Organization Address City/[facility] Phone Number [facility] [address] [place] [address] [phone] MEDIA XR chest 1 view portable / bedside (01/03/2019 6:51 PM CDT)Only the most recent of2 resultswithin the time period is included. Specimen Narrative Performed At FINAL REPORT [employer] History: PICC line insertion. Comparison: 12/29/2018 Findings: A single view of the chest is submitted. A right PICC line tip overlies the SVC. The cardiac silhouette is within normal limits for size. There is atherosclerotic calcification of the aorta. 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 There is a similar appearance of central pulmonary vascular prominence and diffuse interstitial thickening, which could reflect some combination of interstitial edema and interstitial scarring. Blunting of the left costophrenic sulcus may reflect pleural thickening or a trace effusion. There is no pneumothorax or acute bony abnormality. Signed: Andrew Corral MD Report Verified Date/Time:01/03/2019 19:00:30 Reading Location: [address] Reading Room Procedure Note Interface, External Ris In - 01/03/2019 7:02 PM CDT FINAL REPORT History: PICC line insertion. Comparison: 12/29/2018 Findings: A single view of the chest is submitted. A right PICC line tip overlies the SVC. The cardiac silhouette is within normal limits for size. There is atherosclerotic calcification of the aorta. 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 There is a similar appearance of central pulmonary vascular prominence and diffuse interstitial thickening, which could reflect some combination of interstitial edema and interstitial scarring. Blunting of the left costophrenic sulcus may reflect pleural thickening or a trace effusion. There is no pneumothorax or acute bony abnormality. Signed: Andrew Corral MD Report Verified Date/Time: 01/03/2019 19:00:30 Reading Location: [address] Reading Room Performing Organization Address City/State/Zipcode Phone Number [employer] abdomen limited (01/03/2019 3:41 PM CDT)Only the most recent of3 resultswithin the time period is included. Specimen Narrative Performed At FINAL REPORT [employer] [facility] ULTRASOUND RIGHT UPPER QUADRANT OF THE ABDOMEN HISTORY: Abdominal pain COMPARISON: Ultrasound abdomen right upper quadrant from 12/31/2018 TECHNIQUE: Real-time ultrasound of the right upper quadrant of the abdomen was performed. FINDINGS: The liver is normal in size. Hepatic length is 12.6 cm. Mild diffuse increase in hepatic echogenicity, which may reflect fatty infiltration. No mass lesion is visualized. The gallbladder demonstrates upper limits of normal wall thickness. No pericholecystic fluid. No sonographic Stewart sign was elicited. Several shadowing gallstones are present in the gallbladder. The common bile duct is normal in caliber, measuring 4 mm. The main portal vein is normal in caliber, measuring 7mm. No pancreatic abnormality was visualized. No ascites. Small right pleural effusion. The right kidney is normal in size, contour, and echogenicity. The right kidney measures 10.1 cm in length.No hydronephrosis, mass lesion or stones are visualized. No abnormalities are seen in the abdominal aorta. The inferior vena cava and hepatic veins are mildly dilated, which can be a sign of right heart dysfunction. IMPRESSION: 1. Gallstones in the gallbladder. No secondary evidence of acute cholecystitis. No bile duct dilatation. 2. Mild fatty infiltration of the liver. Signed: James Dickens MD Report Verified Date/Time:01/03/2019 16:20:42 Reading Location: [address] Reading Room Procedure Note Interface, External Ris In - 01/03/2019 4:22 PM CDT FINAL REPORT ULTRASOUND RIGHT UPPER QUADRANT OF THE ABDOMEN HISTORY: Abdominal pain COMPARISON: Ultrasound abdomen right upper quadrant from 12/31/2018 TECHNIQUE: Real-time ultrasound of the right upper quadrant of the abdomen was performed. FINDINGS: The liver is normal in size. Hepatic length is 12.6 cm. Mild diffuse increase in hepatic echogenicity, which may reflect fatty infiltration. No mass lesion is visualized. The gallbladder demonstrates upper limits of normal wall thickness. No pericholecystic fluid. No sonographic Stewart sign was elicited. Several shadowing gallstones are present in the gallbladder. The common bile duct is normal in caliber, measuring 4 mm. The main portal vein is normal in caliber, measuring 7 mm. No pancreatic abnormality was visualized. No ascites. Small right pleural effusion. The right kidney is normal in size, contour, and echogenicity. The right kidney measures 10.1 cm in length. No hydronephrosis, mass lesion or stones are visualized. No abnormalities are seen in the abdominal aorta. The inferior vena cava and hepatic veins are mildly dilated, which can be a sign of right heart dysfunction. IMPRESSION: 1. Gallstones in the gallbladder. No secondary evidence of acute cholecystitis. No bile duct dilatation. 2. Mild fatty infiltration of the liver. Signed: James Dickens MD Report Verified Date/Time: 01/03/2019 16:20:42 Reading Location: [address] Transitional Reading Room Performing Organization Address City/State/Zipcode Phone Number [employer] ECHOCARDIOGRAM REPORT - SCAN (01/02/2019 9:10 PM CDT) Narrative Performed At 2D Echo W/Doppler(CW/PW/Color) (01/02/2019 3:10 PM CDT) Ejection Fraction [facility] Specimen Narrative Performed At Transthoracic Echocardiography Report (TTE) [facility] Demographics Patient Name ANN-MARIE CAAL Date of Study 01/02/2019 [id number] GenderFemale Visit Number [id number] Unknown [id number] Room Number [id number] Number Date of Birth2Referring Physician Meghann Terrell Age88 year(s)Hub Lead Glenn Navarro AnalystIzoRia Cobb MD Procedure Type of Study TTE procedure:2DECHO W DOPPLER(CW/PW/COLOR) (STAT) Indications:Prosthetic valve function. Clinical History HGB 11.3 HCT 26.6 % CAD HTN AFIB COPD ABDOMINAL SURGERY MVR 1997 Contrast Medium: Definity. Height: 66 inches Weight: 77.11 kg (170 lbs) BSA: 1.87 m^2 BMI: 27.44 kg/m^2 HR: 85 bpm BP: 168/66 mmHg Summary 1. Estimated LVEF by qualitative assessment is normal (>60%) . 2. RV chamber size is mildly enlarged . Global RV systolic function is normal . 3. Mildly elevated trans-tricuspid gradients suggests prior TV annuloplasty vs mild tricuspid stenosis (mean gradient 6mmHg) 4. Estimated peak systolic PA pressure is 65-70 mmHg . Previous Study No prior exam available for comparison. Signature Findings Technical Quality: Technically adequate exam. Left Ventricle The left ventricle is chamber size (by PSLAX di mension) is normal (female - LVIDd 3.8-5.2cm) . Se ptal motion is abnormal, likely related to prior ca rdiac surgery . The other segments contract no rmally. Global LV systolic function normal . Es timated LVEF by qualitative assessment is normal (> 60%) . High (cardiac index >4 L/min/m2) cardiac ou tput state at rest is noted. Degree of diastolic dy sfunction (LAP assessment) is inconclusive due to pr osthetic MV . Al l of the LV segments contract normally . Left AtriumLA size is severely enlarged (>48 ml/m2) . Right VentricleRV pacing wire is visualized . RV chamber size is mildly enlarged . Gl obal RV systolic function is normal . RV pacing wire is visualized . Right Atrium RA pacing wire is visualized . RA cavity size is severely enlarged . Aortic Valve Mild AoV cusp calcification. A trace of aortic regurgitation. Mitral Valve A mechanical MV prosthesis is visualized . Th e mechanical prosthetic MV appears well-seated wi th normal function by Doppler. Pr osthetic MV systolic gradients are normal for MV R. Mi ld mitral regurgitation. Tricuspid ValveMild tricuspid regurgitation. Mi ldly elevated trans-tricuspid gradients suggests pr ior TV annuloplasty vs mild tricuspid stenosis (m simone gradient 6mmHg). Es timated peak systolic PA pressure is 65-70 mmHg . Pulmonic Valve Normal PV structure and function by limited views an d Doppler. AortaAortic root size (SInus of Valsalva diameter) is no rmal . Proximal ascending aorta size is normal . PericardiumNo significant pericardial effusion is visualized. IVC/SVC/PA/PV/PleuralA left pleural effusion is noted. Th e estimated RA pressure by IVC dynamics 16-20mmHg . Chambers/Structures Left Atrium LA Volume: 193.74 ml LA Area: 42.03 cm^2 LA Vol. Index: 104 ml/m^2 Left Ventricle LVIDd: 4.87 cm LV Septum Diastolic: 0.89 cm LV PW Diastolic: 0.79 cm LVOT Diameter: 1.95 cm Right Atrium RA Vol. (Sngl Plane): 103.66 ml Right Ventricle TAPSE: 1.89 cm Aorta Ao Root S of Na.: 3.19 cmAscending Aorta: 2.73 cm Doppler/Quantitative Measurements Mitral Valve Mean Velocity: 1.76 m/s Mean Gradient: 13.85 mmHg Area (continuity): 1.61 cm^2 MV VTI: 58.54 cm MV Christiano. Peak: 2.66 m/s Aortic Valve Peak Velocity: 2.22 m/sMean Velocity: 1.4 m/s Peak Gradient: 19.75 mmHgMean Gradient: 9.47 mmHg AV Area (continuity): 2.03 cm^2 AV VTI: 46.33 cm AV DVI: 0.68 LVOT Peak Velocity: 1.44 m/s Peak Gradient: 8.34 mmHg Mean Velocity: 0.98 m/s Mean Gradient: 4.57 mmHg LVOT Diameter: 1.95 cmLVOT VTI: 31.51 cm LVOT Area: 2.99 cm^2LVOT SV:94.06 ml LVOT CO: 7.99 l/min LVOT CI: 4.27 l/min/m^2 Tricuspid Valve TR Velocity: 3.51 m/s TR Gradient: 49.3 mmHgTV Mean Gradient: 6.78 mmHg TR Mean Velocity: 1.23 m/s Procedure Note Interface, External Ris In - 01/02/2019 4:52 PM CDT Transthoracic Echocardiography Report (TTE) Demographics Patient Name ANN-MARIE CAAL Date of Study 01/02/2019 Gender Female Visit Number [id number] Race Unknown Room Number 1627 Number Date of 1930 Referring Physician Meghann Terrell Age 88 year(s) Hub Lead Glenn Navarro Gear Machine Operator General Amilcar Thomas Interpreting Ria Wei Physician Procedure Type of Study TTE procedure:2DECHO W DOPPLER(CW/PW/COLOR) (STAT) Indications:Prosthetic valve function. Clinical History HGB 11.3 HCT 26.6 % CAD HTN AFIB COPD ABDOMINAL SURGERY MVR 1997 Contrast Medium: Definity. Height: 66 inches Weight: 77.11 kg (170 lbs) BSA: 1.87 m^2 BMI: 27.44 kg/m^2 HR: 85 bpm BP: 168/66 mmHg Summary 1. Estimated LVEF by qualitative assessment is normal (>60%) . 2. RV chamber size is mildly enlarged . Global RV systolic function is normal . 3. Mildly elevated trans-tricuspid gradients suggests prior TV annuloplasty vs mild tricuspid stenosis (mean gradient 6mmHg) 4. Estimated peak systolic PA pressure is 65-70 mmHg . Previous Study No prior exam available for comparison. Signature Findings Technical Quality: Technically adequate exam. Left Ventricle The left ventricle is chamber size (by PSLAX dimension) is normal (female - LVIDd 3.8-5.2cm) . Septal motion is abnormal, likely related to prior cardiac surgery . The other segments contract normally. Global LV systolic function normal . Estimated LVEF by qualitative assessment is normal (>60%) . High (cardiac index >4 L/min/m2) cardiac output state at rest is noted. Degree of diastolic dysfunction (LAP assessment) is inconclusive due to prosthetic MV . All of the LV segments contract normally . Left Atrium LA size is severely enlarged (>48 ml/m2) . Right Ventricle RV pacing wire is visualized . RV chamber size is mildly enlarged . Global RV systolic function is normal . RV pacing wire is visualized . Right Atrium RA pacing wire is visualized . RA cavity size is severely enlarged . Aortic Valve Mild AoV cusp calcification. A trace of aortic regurgitation. Mitral Valve A mechanical MV prosthesis is visualized . The mechanical prosthetic MV appears well-seated with normal function by Doppler. Prosthetic MV systolic gradients are normal for MVR. Mild mitral regurgitation. Tricuspid Valve Mild tricuspid regurgitation. Mildly elevated trans-tricuspid gradients suggests prior TV annuloplasty vs mild tricuspid stenosis (mean gradient 6mmHg). Estimated peak systolic PA pressure is 65-70 mmHg . Pulmonic Valve Normal PV structure and function by limited views and Doppler. Aorta Aortic root size (SInus of Valsalva diameter) is normal . Proximal ascending aorta size is normal . Pericardium No significant pericardial effusion is visualized. IVC/SVC/PA/PV/Pleural A left pleural effusion is noted. The estimated RA pressure by IVC dynamics 16-20mmHg . Chambers/Structures Left Atrium LA Volume: 193.74 ml LA Area: 42.03 cm^2 LA Vol. Index: 104 ml/m^2 Left Ventricle LVIDd: 4.87 cm LV Septum Diastolic: 0.89 cm LV PW Diastolic: 0.79 cm LVOT Diameter: 1.95 cm Right Atrium RA Vol. (Sngl Plane): 103.66 ml Right Ventricle TAPSE: 1.89 cm Aorta Ao Root S of Na.: 3.19 cm Ascending Aorta: 2.73 cm Doppler/Quantitative Measurements Mitral Valve Mean Velocity: 1.76 m/s Mean Gradient: 13.85 mmHg Area (continuity): 1.61 cm^2 MV VTI: 58.54 cm MV Christiano. Peak: 2.66 m/s Aortic Valve Peak Velocity: 2.22 m/s Mean Velocity: 1.4 m/s Peak Gradient: 19.75 mmHg Mean Gradient: 9.47 mmHg AV Area (continuity): 2.03 cm^2 AV VTI: 46.33 cm AV DVI: 0.68 LVOT Peak Velocity: 1.44 m/s Peak Gradient: 8.34 mmHg Mean Velocity: 0.98 m/s Mean Gradient: 4.57 mmHg LVOT Diameter: 1.95 cm LVOT VTI: 31.51 cm LVOT Area: 2.99 cm^2 LVOT SV:94.06 ml LVOT CO: 7.99 l/min LVOT CI: 4.27 l/min/m^2 Tricuspid Valve TR Velocity: 3.51 m/s TR Gradient: 49.3 mmHg TV Mean Gradient: 6.78 mmHg TR Mean Velocity: 1.23 m/s Performing Organization Address [facility] Phone Number [facility] E[facility] REPORT OF PROCEDURE - ENDOSCOPY URL (01/02/2019 1:34 PM CDT) Narrative Performed At [place] ERCP (01/02/2019 12:51 PM CDT)Only the most recent of3 resultswithin the time period is included. Specimen Narrative Performed At PROCEDURE PERFORMED IN O.R. - PLEASE REFER TO THE INTRAOPERATIVE GE RIS REPORT. Procedure Note Interface, External Ris In - 01/12/2019 4:55 PM CDT PROCEDURE PERFORMED IN O.R. - PLEASE REFER TO THE INTRAOPERATIVE REPORT. Performing Organization Address [facility] Phone Number GE RIS ECG 12 lead (01/01/2019 3:11 PM CDT)Only the most recent of2 resultswithin the time period is included. Specimen Narrative Performed At Ventricular Rate 81 BPM GE MUSE Atrial Rate 277 BPM QRS Duration 102 ms Q-T Interval 404 ms QTC Calculation(Bazett) 469 ms R [place] 13 degrees T [place] 247 degrees Accelerated Junctional rhythm with occasional Premature ventricular complexesand intermittenet electronic ventricular pacing ST depression and T wave inversion inferolateral leads consider ischemia Prolonged QT Abnormal ECG When compared with ECG of 22-DEC-2018 14:55, Junctional rhythm has replaced Electronic ventricular pacemaker Confirmed by MD JERRY, JOHN ([id number]) on 01/01/2019 6:13:09 PM Procedure Note Interface, External Ris In - 01/01/2019 6:13 PM CDT Ventricular Rate 81 BPM Atrial Rate 277 BPM QRS Duration 102 ms Q-T Interval 404 ms QTC Calculation(Bazett) 469 ms R [place] 13 degrees T [place] 247 degrees Accelerated Junctional rhythm with occasional Premature ventricular complexes and intermittenet electronic ventricular pacing ST depression and T wave inversion inferolateral leads consider ischemia Prolonged QT Abnormal ECG When compared with ECG of 22-DEC-2018 14:55, Junctional rhythm has replaced Electronic ventricular pacemaker Confirmed by MD JERRY, JOHN ([id number]) on 01/01/2019 6:13:09 PM Performing Organization Address City/[facility]/Zipcode Phone Number GE MUSE ABORH, manual (12/31/2018 5:36 PM CDT) ABO Grouping A [facility] Rh Factor POS [facility] Specimen Blood Performing Organization Address [facility] Phone Number [address] [address] Amylase (12/31/2018 3:33 PM CDT) Amylase 43 25 - 125 U/L [facility] Specimen Blood Performing Organization Address [facility] Phone Number [facility] [address] [place] [phone] CENTER [place] hepatobiliary (HIDA) scan (12/31/2018 10:46 AM CDT) Specimen Narrative Performed At FINAL REPORT [employer] PROCEDURE: HEPATOBILIARY SCAN CPT CODE: 53806 INDICATION: Right upper quadrant pain PROTOCOL: 5.4 mCi of Tc-99m mebrofenin was injected intravenously. Images of the upper abdomen were obtained for approximately 60 minutes after tracer injection. FINDINGS:Initial tracer uptake into the liver is physiological. Subsequent tracer clearance from the liver normal. There is good visualization of the extrahepatic biliary duct and the gallbladder, and the tracer appears appropriately in the small bowel. IMPRESSION:Normal hepatobiliary scan. Signed: Ponce Quesada MD Report Verified Date/Time:12/31/2018 11:10:08 Reading Location: [address] Reading Room Procedure Note Interface, External Ris In - 12/31/2018 11:12 AM CDT FINAL REPORT PROCEDURE: HEPATOBILIARY SCAN CPT CODE: [id number] INDICATION: Right upper quadrant pain PROTOCOL: 5.4 mCi of Tc-99m mebrofenin was injected intravenously. Images of the upper abdomen were obtained for approximately 60 minutes after tracer injection. FINDINGS: Initial tracer uptake into the liver is physiological. Subsequent tracer clearance from the liver normal. There is good visualization of the extrahepatic biliary duct and the gallbladder, and the tracer appears appropriately in the small bowel. IMPRESSION: Normal hepatobiliary scan. Signed: Ponce Quesada MD Report Verified Date/Time: 12/31/2018 11:10:08 Reading Location: [address] [address] [facility] Reading Room Performing Organization Address [facility] Phone Number [employer] XR abdomen / KUB 1 view (12/29/2018 1:44 PM CDT) Specimen Narrative Performed At FINAL REPORT [employer] CLINICAL HISTORY: abdominal pain TECHNIQUE: Supine abdomen COMPARISON: None IMPRESSION: The bowel gas pattern is nonspecific. Free air and air-fluid levels are not seen but cannot be definitively excluded on the supine view. There is pneumobilia compatible with the recent ERCP procedure. Signed: Dimple Garzon MD Report Verified Date/Time:12/29/2018 14:44:14 Reading Location: [facility] [id number] Consult Reading Room Procedure Note Interface, External Ris In - 12/29/2018 2:46 PM CDT FINAL REPORT CLINICAL HISTORY: abdominal pain TECHNIQUE: Supine abdomen COMPARISON: None IMPRESSION: The bowel gas pattern is nonspecific. Free air and air-fluid levels are not seen but cannot be definitively excluded on the supine view. There is pneumobilia compatible with the recent ERCP procedure. Signed: Dimple Garzon MD Report Verified Date/Time: 12/29/2018 14:44:14 Reading Location: [facility] [id number] Consult Reading Room Performing Organization Address [facility] Phone Number [employer] Venous doppler arm, left (12/28/2018 8:42 AM CDT) Ejection Fraction [facility] ECHO [facility]ART[facility] Specimen Impressions Performed At Right Impression [facility] ECHO [facility]ART[facility] NOT ORDERED. Left Impression 1. There is no deep venous obstruction in the jugular, subclavian, axillary, brachial, radial or ulnar veins. 2. There is no superficial venous obstruction in the cephalic or basilic veins. Conclusions Summary Venous duplex imaging and compression of the left upper extremity was performed. The veins were adequately visualized. The left venous system was patent and compressible with no evidence of thrombus. Signature Velocities are measured in cm/s ; Diameters are measured in cm Narrative Performed At PV LAB - Upper Extremities Veins [facility] Demographics Patient Name Gume CAAL of Study 12/28/2018 [id number] Age 88 Visit Number [id number] GenderFemale Accession Number [id number] Date of 1930 [facility], Room Number 1627 Physician SonographerGradha Malloy.InterpretingEly Hinson RVT, [facility] Physician Procedure Type of Study: Veins: Upper Extremities Veins, VENOUS DOPPLER ARM, LEFT. Indications for Study:Arm swelling. Patient Status:Routine. Study Location:Vascular Lab. Technical Quality:Adequate visualization. Risk Factors History of Disease +---------+----+ + !Diagnosis!Date!Comments ! +---------+----+ + !Other!!CAD, HTN, DM, CANCER, COPD, CVA, CHF ! +---------+----+ + Procedure Note Interface, External Ris In - 12/28/2018 11:05 AM CDT [facility] LAB - Upper Extremities Veins Demographics Patient Name ANN-MARIE CAAL Date of Study 12/28/2018 Age 88 Visit Number [id number] Gender Female Accession Number [id number] Date of 1930 Referring Sebastian Hernandez, Room Number 1627 Physician Hub Lead Harpreet Malloy. Interpreting Ely Hinson Aracely, [facility] Physician Procedure Type of Study: Veins: Upper Extremities Veins, VENOUS DOPPLER ARM, LEFT. Indications for Study:Arm swelling. Patient Status:Routine. Study Location:Vascular Lab. Technical Quality:Adequate visualization. Risk Factors History of Disease +---------+----+ + !Diagnosis!Date!Comments ! +---------+----+ + !Other ! !CAD, HTN, DM, CANCER, COPD, CVA, CHF ! +---------+----+ + Impressions Right Impression NOT ORDERED. Left Impression 1. There is no deep venous obstruction in the jugular, subclavian, axillary, brachial, radial or ulnar veins. 2. There is no superficial venous obstruction in the cephalic or basilic veins. Conclusions Summary Venous duplex imaging and compression of the left upper extremity was performed. The veins were adequately visualized. The left venous system was patent and compressible with no evidence of thrombus. Signature Velocities are measured in cm/s ; Diameters are measured in cm Performing Organization Address [facility] [place] Phone Number [facility] REPORT OF PROCEDURE - ENDOSCOPY URL (12/22/2018 3:43 PM TEST ADMINISTRATOR) Narrative Performed At Vitamin B12 and Folate (12/21/2018 5:09 AM TEST ADMINISTRATOR) Vitamin B12 1,923 (H) 213 - 816 pg/mL [facility] Folate 17.5 >=7.0 ng/mL [facility] Specimen Blood Performing Organization Address City/State/Zipcode Phone Number [facility] [address] [place] [address] CENTER Blood Culture - Routine (Left Venipuncture) (12/18/2018 12:42 PM TEST ADMINISTRATOR)Only the most recent of2 resultswithin the time period is included. Result No growth in 5 days [facility] Specimen Blood Performing Organization Address City/State/Zipcode Phone Number [facility] [address] [place] [address] [phone] CENTER XR chest PA or AP 1 view in dept (12/18/2018 12:05 PM TEST ADMINISTRATOR) Specimen Narrative Performed At FINAL REPORT [facility] Portable chest. HISTORY: Evaluate for fever. COMPARISON STUDY: None available. FINDINGS: The cardiac silhouette is enlarged. The patient is status post sternotomy and valve replacement with a pacer device in place. There are increased interstitial markings throughout the lung nicholas. No pleural effusion or pneumothorax is noted. Degenerative changes are seen. IMPRESSION: Findings most suggestive of mild CHF. In the right clinical setting, a superimposed infection would be difficult to exclude. Clinical correlation and short term imaging follow-up could be made to exclude other etiologies. Signed: Pelon Headley MD Report Verified Date/Time:12/18/2018 12:53:56 Reading Location: [address] Consult Reading Room Procedure Note Interface, External Ris In - 12/18/2018 12:56 PM TEST ADMINISTRATOR FINAL REPORT Portable chest. HISTORY: Evaluate for fever. COMPARISON STUDY: None available. FINDINGS: The cardiac silhouette is enlarged. The patient is status post sternotomy and valve replacement with a pacer device in place. There are increased interstitial markings throughout the lung nicholas. No pleural effusion or pneumothorax is noted. Degenerative changes are seen. IMPRESSION: Findings most suggestive of mild CHF. In the right clinical setting, a superimposed infection would be difficult to exclude. Clinical correlation and short term imaging follow-up could be made to exclude other etiologies. Signed: Pelon Headley MD Report Verified Date/Time: 12/18/2018 12:53:56 Reading Location: [facility] B1 [id number] Consult Reading Room Performing Organization Address City/State/Zipcode Phone Number GE RIS after 05/13/2018 Insurance Payer Benefit Plan / Group Subscriber ID Type Phone Address MEDICARE MEDICARE A B xxxxxxxxxxx Medicare AETNA - MGD CARE AETNA INDEMNITY NON CONTR xxxxxxxxx Comm Advance Directives For more information, please contact:[address] [phone] Code Status Date Activated Date Inactivated Comments Full Code 12/17/2018 8:52 AM 01/21/2019 5:12 PM This code status was determined by: Patient
--- OUTSIDE RECORDS SUMMARY | 2019-05-14 11:56 | XMS REPORT ---
:1930 [facility] Address [address] [place] [id number] Care Team Providers Name Role Phone VANI RIZZO Unavailable Unavailable Problems This patient has no known problems. Allergies, Adverse Reactions, Alerts This patient has no known allergies or adverse reactions. Medications This patient has no known medications. Results Test Description Test Time Test Comments Text Results Atomic Results Result Comments TISSUE EXAM 2019-01-29 15:10:00 Surgical Pathology Report Case: [id number] Authorizing Provider: Scooby Katz, Collected: 01/06/2019 1756 Ordering Location: [facility] PERIOPERATIVE Received: 01/07/2019 0800 SERVICES Pathologist: Aditi Hardy MD Specimens: A) - Gallbladder B) - Biopsy, Liver ADDENDUM FOR RESULTS OF LIVER BIOPSYFINAL DIAGNOSIS:A. GALLBLADDER, CHOLECYSTECTOMY: - SEE PREVIOUS REPORT; NO CHANGE TO PREVIOUS REPORTB. LIVER, RANDOM NEEDLE CORE BIOPSY: - LIVER PARENCHYMA WITH NO SIGNIFICANT INFLAMMATION OR STEATOSIS - MILD PORTAL AND PERIPORTAL FIBROSIS COMMENT: In this 88-year-old male with abdominal pain, status post ERCP, sphincterotomy, and stone extraction, calculus of the gallbladder, cholecystitis, and liver function tests not available, the findings are not specific. According to the history, the abnormal liver function tests had resolved by 01/16/2019 (corrected date). This case is reviewed, and the detailed microscopic description provided by Dr. Nataly Vivas M.D., [facility], GI pathologist.MICROSCOPIC DESCRIPTION: A single liver core shows fixation/preservation [...] iron stain is negative for decreased iron. MO/ewAddendum electronically signed by Aditi Hardy MD on 01/29/2019 at 3:10 PMA. GALLBLADDER, CHOLECYSTECTOMY: - CHRONIC CHOLECYSTITIS, MARKED, AND CHOLELITHIASIS B. LIVER, CORE BIOPSY: - PENDING Signing Pathologist Direct Phone Line: [phone] signed by Aditi Hardy MD on 01/15/2019 at 3:00 PMMO/[id number] of gallbladder without cholecystitis without obstructionA. Gallbladder; B. Liver biopsyThe specimen is received in two containers of formalin both labeled with the patient's information. Part A labeled "gallbladder" consists of an intact gallbladder measuring 6.5 x 3 cm with a gallbladder wall thickness of 0.2 cm. The gallbladder lumen is filled with guallpa-red thick bile with a single green smooth stone measuring 0.6 cm. The mucosa is guallpa-red and velvety with no abnormalities.Section code: A1, margin en face; A2, gallbladder wall.Part B labeled "liver biopsy" consists of a guallpa core measuring 1.8 cm in length, submitted entirely B1. CG/pl A. The gallbladder shows extensive and mostly chronic cholecystitis with an associated plasma cell infiltrate. No other significant features are noted. There are associated prominent Rokitansky-Aschoff sinuses.B. The liver biopsy results will follow in an addendum report.The interpretation of this case included the use of immunohistochemistry or special stains. Immunohistochemistry technical testing was performed at [facility], Pathology Laboratory where it was developed and its performance characteristics were determined. It has not been cleared or approved by the U.S. Food and Drug Administration. The FDA has determined that such clearance or approval is not necessary. The test is used for clinical purposes. It should not be regarded as investigational or for research. This laboratory is certified under the Clinical Laboratory Improvement Amendments of 1988 (CLIA-88) as qualified to perform high complexity clinical laboratory testing. POCT-GLUCOSE METER 2019-01-21 08:58:00 Test Item Value Reference Range Comments POC-GLUCOSE METER (BEAKER) (test 152 mg/dL 70-110 TESTED AT [facility] [address] [facility] [address] PROTHROMBIN [id number] 06:46:00 Test Item Value Reference Range Comments PROTIME (BEAKER) (test gpvy=670) 26.4 seconds 11.7-14.7 INR (BEAKER) (test vkfk=006) 2.4 <=5.9 RECOMMENDED COUMADIN/WARFARIN INR THERAPY RANGESSTANDARD DOSE: 2.0 - 3.0 Includes: PROPHYLAXIS forvenous thrombosis, systemic embolization; TREATMENT for venous thrombosis and/or pulmonary embolus.HIGH RISK: Target INR is 2.5-3.5 for patients with mechanical heart valves.While on warfarin.CBC (HEMOGRAM ONLY) 2019-01-21 06:42:00 Test Item Value Reference Range Comments WHITE BLOOD CELL COUNT (BEAKER) (test yelo=314) 6.7 K/ L 3.5-10.5 RED BLOOD CELL COUNT (BEAKER) (test erdh=848) 3.21 M/ L 3.93-5.22 HEMOGLOBIN (BEAKER) (test baqc=818) 9.7 GM/DL 11.2-15.7 HEMATOCRIT (BEAKER) (test okug=304) 31.3 % 34.1-44.9 MEAN CORPUSCULAR VOLUME (BEAKER) (test hkdd=796) 97.5 fL 79.4-94.8 MEAN CORPUSCULAR HEMOGLOBIN (BEAKER) (test 30.2 pg 25.6-32.2 mtxa=658) MEAN CORPUSCULAR HEMOGLOBIN CONC (BEAKER) (test 31.0 GM/DL 32.2-35.5 oejm=576) RED CELL DISTRIBUTION WIDTH (BEAKER) (test 19.3 % 11.7-14.4 xfnf=512) PLATELET COUNT (BEAKER) (test jkno=157) 175 K/CU MM 150-450 MEAN PLATELET VOLUME (BEAKER) (test fygl=913) 8.9 fL 9.4-12.3 NUCLEATED RED BLOOD CELLS (BEAKER) (test 0 /100 WBC 0-0 kdfn=851) HEMOGLOBIN AND [id number] 00:58:00 Test Item Value Reference Range Comments HEMOGLOBIN (BEAKER) (test vswt=836) 9.7 GM/DL 11.2-15.7 HEMATOCRIT (BEAKER) (test nfiz=238) 30.6 % 34.1-44.9 CBC W/PLT COUNT & AUTO [id number] 00:58:00 Test Item Value Reference Range Comments WHITE BLOOD CELL COUNT (BEAKER) (test uolc=353) 7.1 K/ L 3.5-10.5 RED BLOOD CELL COUNT (BEAKER) (test qqdn=038) 3.16 M/ L 3.93-5.22 HEMOGLOBIN (BEAKER) (test xkau=106) 9.7 GM/DL 11.2-15.7 HEMATOCRIT (BEAKER) (test rcfw=480) 30.6 % 34.1-44.9 MEAN CORPUSCULAR VOLUME (BEAKER) (test xcfk=839) 96.8 fL 79.4-94.8 MEAN CORPUSCULAR HEMOGLOBIN (BEAKER) (test 30.7 pg 25.6-32.2 upud=931) MEAN CORPUSCULAR HEMOGLOBIN CONC (BEAKER) (test 31.7 GM/DL 32.2-35.5 wwcw=494) RED CELL DISTRIBUTION WIDTH (BEAKER) (test 18.6 % 11.7-14.4 wgsp=569) PLATELET COUNT (BEAKER) (test ceet=856) 152 K/CU MM 150-450 MEAN PLATELET VOLUME (BEAKER) (test nsij=977) 8.5 fL 9.4-12.3 NUCLEATED RED BLOOD CELLS (BEAKER) (test 0 /100 WBC 0-0 bxgo=483) NEUTROPHILS RELATIVE PERCENT (BEAKER) (test 65 % bssa=874) LYMPHOCYTES RELATIVE PERCENT (BEAKER) (test 17 % yeol=053) MONOCYTES RELATIVE PERCENT (BEAKER) (test 12 % qslo=469) EOSINOPHILS RELATIVE PERCENT (BEAKER) (test 3 % nxpm=278) BASOPHILS RELATIVE PERCENT (BEAKER) (test 0 % tyyg=402) NEUTROPHILS ABSOLUTE COUNT (BEAKER) (test 4.64 K/ L 1.56-6.13 zjli=529) LYMPHOCYTES ABSOLUTE COUNT (BEAKER) (test 1.22 K/ L 1.18-3.74 ngkv=510) MONOCYTES ABSOLUTE COUNT (BEAKER) (test 0.86 K/ L 0.24-0.36 zhoq=898) EOSINOPHILS ABSOLUTE COUNT (BEAKER) (test 0.24 K/ L 0.04-0.36 zvwf=167) BASOPHILS ABSOLUTE COUNT (BEAKER) (test 0.03 K/ L 0.01-0.08 vrie=038) IMMATURE GRANULOCYTES-RELATIVE PERCENT (BEAKER) 2 % 0-1 (test zsdn=3469) POCT-GLUCOSE [id number] 21:39:00 Test Item Value Reference Range Comments POC-GLUCOSE METER (BEAKER) 123 mg/dL 70-110 TESTED AT [facility] [address] [facility] (test fcli=0400) [facility] [address] POCT-GLUCOSE [id number] 18:44:00 Test Item Value Reference Range Comments POC-GLUCOSE METER (BEAKER) 115 mg/dL 70-110 TESTED AT [address] (test mdpz=1437) [facility] [address] [address], [id number] 18:25:00FINAL REPORT ABDOMINAL AND PELVIS CT DATED 01/20/2019 [...] iliac arteries. IMPRESSION: 1. Stable left retroperitoneal hematoma.2. Small right pleural effusion withright lower lobe subsegmental atelectasis.3. Cardiomegaly.4. Calcified granulomas in the liver and the spleen.5. Diverticulosis without diverticulitis. Signed: Agustin White [facility] Verified Date/Time:01/20/2019 18:25:12 Reading Location: [facility] B1 C013Y CT Body Reading Room POCT-GLUCOSE [id number] 13:03:00 Test Item Value Reference Range Comments POC-GLUCOSE METER (BEAKER) 113 mg/dL 70-110 TESTED AT [facility] [address] [facility] (test hrgd=8272) [facility] [address] CALCIUM, [id number] 06:35:00 Test Item Value Reference Range Comments CALCIUM IONIZED (BEAKER) (test jqyg=687) 1.10 mmol/L 1.12-1.27 PH, BLOOD (BEAKER) (test hddr=8075) 7.45 [id number] 05:40:00 Test Item Value Reference Range Comments PHOSPHORUS (BEAKER) (test zfpl=824) 2.6 mg/dL 2.3-4.7 [id number] 05:40:00 Test Item Value Reference Range Comments MAGNESIUM (BEAKER) (test dymb=681) 1.6 mg/dL 1.6-2.6 BASIC METABOLIC [id number] 05:40:00 Test Item Value Reference Range Comments SODIUM (BEAKER) (test 132 meq/L 136-145 tmun=685) POTASSIUM (BEAKER) (test 4.3 meq/L 3.5-5.1 zlzh=548) CHLORIDE (BEAKER) (test 100 meq/L 98-107 gmrt=424) CO2 (BEAKER) (test 27 meq/L 22-29 tpdq=410) BLOOD UREA NITROGEN 9 mg/dL 7-21 (BEAKER) (test mvbj=274) CREATININE (BEAKER) (test 0.65 mg/dL 0.57-1.25 vazy=061) GLUCOSE RANDOM (BEAKER) 84 mg/dL 70-105 (test acjw=085) CALCIUM (BEAKER) (test 8.9 mg/dL 8.4-10.2 haza=369) EGFR (BEAKER) (test 86 mL/min/1.73 sq m ESTIMATED GFR IS NOT iyey=1578) ACCURATE CREATININE CLEARANCE IN PREDICTING GLOMERULAR FILTRATION RATE. ESTIMATED GFR IS NOT APPLICABLE FOR DIALYSIS PATIENTS. PROTHROMBIN [id number] 05:26:00 Test Item Value Reference Range Comments PROTIME (BEAKER) (test icrv=440) 30.5 seconds 11.7-14.7 INR (BEAKER) (test umqi=534) 2.9 <=5.9 RECOMMENDED COUMADIN/WARFARIN INR THERAPY RANGESSTANDARD DOSE: 2.0 - 3.0 Includes: PROPHYLAXIS forvenous thrombosis, systemic embolization; TREATMENT for venous thrombosis and/or pulmonary embolus.HIGH RISK: Target INR is 2.5-3.5 for patients with mechanical heart valves.While on warfarin.HEMOGLOBIN AND [id number] 05:17:00 Test Item Value Reference Range Comments HEMOGLOBIN (BEAKER) (test hpai=841) 9.6 GM/DL 11.2-15.7 HEMATOCRIT (BEAKER) (test qzbu=206) 31.2 % 34.1-44.9 Baseline and daily starting prior to initiation of heparin infusionCBC W/PLT COUNT & AUTO [id number] 05:17:00 Test Item Value Reference Range Comments WHITE BLOOD CELL COUNT (BEAKER) (test jtcn=733) 6.8 K/ L 3.5-10.5 RED BLOOD CELL COUNT (BEAKER) (test gqtm=513) 3.17 M/ L 3.93-5.22 HEMOGLOBIN (BEAKER) (test nojw=885) 9.6 GM/DL 11.2-15.7 HEMATOCRIT (BEAKER) (test eqzg=369) 31.2 % 34.1-44.9 MEAN CORPUSCULAR VOLUME (BEAKER) (test qptd=892) 98.4 fL 79.4-94.8 MEAN CORPUSCULAR HEMOGLOBIN (BEAKER) (test 30.3 pg 25.6-32.2 kthz=608) MEAN CORPUSCULAR HEMOGLOBIN CONC (BEAKER) (test 30.8 GM/DL 32.2-35.5 ujgr=452) RED CELL DISTRIBUTION WIDTH (BEAKER) (test 18.5 % 11.7-14.4 eopa=545) PLATELET COUNT (BEAKER) (test zdmt=965) 160 K/CU MM 150-450 MEAN PLATELET VOLUME (BEAKER) (test vsje=852) 8.4 fL 9.4-12.3 NUCLEATED RED BLOOD CELLS (BEAKER) (test 0 /100 WBC 0-0 eiac=491) NEUTROPHILS RELATIVE PERCENT (BEAKER) (test 65 % zplu=972) LYMPHOCYTES RELATIVE PERCENT (BEAKER) (test 14 % xzqa=798) MONOCYTES RELATIVE PERCENT (BEAKER) (test 12 % ciuf=089) EOSINOPHILS RELATIVE PERCENT (BEAKER) (test 6 % nlhc=827) BASOPHILS RELATIVE PERCENT (BEAKER) (test 1 % hqcs=017) NEUTROPHILS ABSOLUTE COUNT (BEAKER) (test 4.45 K/ L 1.56-6.13 tsie=814) LYMPHOCYTES ABSOLUTE COUNT (BEAKER) (test 0.94 K/ L 1.18-3.74 hics=985) MONOCYTES ABSOLUTE COUNT (BEAKER) (test 0.84 K/ L 0.24-0.36 nixw=611) EOSINOPHILS ABSOLUTE COUNT (BEAKER) (test 0.43 K/ L 0.04-0.36 azvh=060) BASOPHILS ABSOLUTE COUNT (BEAKER) (test 0.05 K/ L 0.01-0.08 soiw=285) IMMATURE GRANULOCYTES-RELATIVE PERCENT (BEAKER) 2 % 0-1 (test ttdq=9859) CBC (HEMOGRAM ONLY)2019-01-20 05:17:00 Test Item Value Reference Range Comments WHITE BLOOD CELL COUNT (BEAKER) (test ifjm=383) 6.8 K/ L 3.5-10.5 RED BLOOD CELL COUNT (BEAKER) (test zowh=751) 3.17 M/ L 3.93-5.22 HEMOGLOBIN (BEAKER) (test wrlt=726) 9.6 GM/DL 11.2-15.7 HEMATOCRIT (BEAKER) (test vkji=629) 31.2 % 34.1-44.9 MEAN CORPUSCULAR VOLUME (BEAKER) (test qtkc=758) 98.4 fL 79.4-94.8 MEAN CORPUSCULAR HEMOGLOBIN (BEAKER) (test 30.3 pg 25.6-32.2 sfls=616) MEAN CORPUSCULAR HEMOGLOBIN CONC (BEAKER) (test 30.8 GM/DL 32.2-35.5 seit=984) RED CELL DISTRIBUTION WIDTH (BEAKER) (test 18.5 % 11.7-14.4 aabd=497) PLATELET COUNT (BEAKER) (test pmgb=800) 160 K/CU MM 150-450 MEAN PLATELET VOLUME (BEAKER) (test qljd=265) 8.4 fL 9.4-12.3 NUCLEATED RED BLOOD CELLS (BEAKER) (test 0 /100 WBC 0-0 yvhg=571) POCT-GLUCOSE [id number] 21:57:00 Test Item Value Reference Range Comments POC-GLUCOSE METER (BEAKER) 114 mg/dL 70-110 TESTED AT [address] (test zrsk=6830) [facility] [address] POCT-GLUCOSE [id number] 17:55:00 Test Item Value Reference Range Comments POC-GLUCOSE METER (BEAKER) 105 mg/dL 70-110 TESTED AT [address] (test osni=3694) [facility] [address] POCT-GLUCOSE [id number] 13:11:00 Test Item Value Reference Range Comments POC-GLUCOSE METER (BEAKER) 120 mg/dL 70-110 TESTED AT [address] (test wbfq=9265) [facility] [address] POCT-GLUCOSE [id number] 09:27:00 Test Item Value Reference Range Comments POC-GLUCOSE METER (BEAKER) 128 mg/dL 70-110 TESTED AT [address] (test unqx=1883) [facility] [address] CALCIUM, [id number] 07:49:00 Test Item Value Reference Range Comments CALCIUM IONIZED (BEAKER) (test jwws=567) 1.09 mmol/L 1.12-1.27 PH, BLOOD (BEAKER) (test ibue=1822) 7.47 [id number] 06:03:00 Test Item Value Reference Range Comments PHOSPHORUS (BEAKER) (test frlz=682) 2.4 mg/dL 2.3-4.7 [id number] 06:03:00 Test Item Value Reference Range Comments MAGNESIUM (BEAKER) (test eiql=363) 1.9 mg/dL 1.6-2.6 BASIC METABOLIC [id number] 06:03:00 Test Item Value Reference Range Comments SODIUM (BEAKER) (test 132 meq/L 136-145 ykdx=700) POTASSIUM (BEAKER) (test 4.1 meq/L 3.5-5.1 kcoi=218) CHLORIDE (BEAKER) (test 98 meq/L 98-107 dipo=908) CO2 (BEAKER) (test 28 meq/L 22-29 cwdx=914) BLOOD UREA NITROGEN 9 mg/dL 7-21 (BEAKER) (test lyuk=375) CREATININE (BEAKER) (test 0.68 mg/dL 0.57-1.25 ejsy=484) GLUCOSE RANDOM (BEAKER) 85 mg/dL 70-105 (test cqzw=719) CALCIUM (BEAKER) (test 8.8 mg/dL 8.4-10.2 nkhq=092) EGFR (BEAKER) (test 82 mL/min/1.73 sq m ESTIMATED GFR IS NOT sljc=6497) ACCURATE CREATININE CLEARANCE IN PREDICTING GLOMERULAR FILTRATION RATE. ESTIMATED GFR IS NOT APPLICABLE FOR DIALYSIS PATIENTS. [id number] 05:42:00 Test Item Value Reference Range Comments PARTIAL THROMBOPLASTIN TIME (BEAKER) (test 86.9 seconds 22.5-36.0 hhtm=032) While on warfarin.PROTHROMBIN [id number] 05:40:00 Test Item Value Reference Range Comments PROTIME (BEAKER) (test krlk=781) 27.8 seconds 11.7-14.7 INR (BEAKER) (test hwag=679) 2.6 <=5.9 RECOMMENDED COUMADIN/WARFARIN INR THERAPY RANGESSTANDARD DOSE: 2.0 - 3.0 Includes: PROPHYLAXIS forvenous thrombosis, systemic embolization; TREATMENT for venous thrombosis and/or pulmonary embolus.HIGH RISK: Target INR is 2.5-3.5 for patients with mechanical heart valves.While on warfarin.HEMOGLOBIN AND [id number] 05:32:00 Test Item Value Reference Range Comments HEMOGLOBIN (BEAKER) (test vmtk=731) 10.1 GM/DL 11.2-15.7 HEMATOCRIT (BEAKER) (test pyft=867) 31.9 % 34.1-44.9 Baseline and daily starting prior to initiation of heparin infusionCBC W/PLT COUNT & AUTO [id number] 05:32:00 Test Item Value Reference Range Comments WHITE BLOOD CELL COUNT (BEAKER) (test zhqc=533) 6.9 K/ L 3.5-10.5 RED BLOOD CELL COUNT (BEAKER) (test kemh=505) 3.30 M/ L 3.93-5.22 HEMOGLOBIN (BEAKER) (test hfzq=617) 10.1 GM/DL 11.2-15.7 HEMATOCRIT (BEAKER) (test jcmu=052) 31.9 % 34.1-44.9 MEAN CORPUSCULAR VOLUME (BEAKER) (test tdkk=550) 96.7 fL 79.4-94.8 MEAN CORPUSCULAR HEMOGLOBIN (BEAKER) (test 30.6 pg 25.6-32.2 mxtq=516) MEAN CORPUSCULAR HEMOGLOBIN CONC (BEAKER) (test 31.7 GM/DL 32.2-35.5 sxbg=603) RED CELL DISTRIBUTION WIDTH (BEAKER) (test 18.4 % 11.7-14.4 vvgk=941) PLATELET COUNT (BEAKER) (test uuhc=358) 182 K/CU MM 150-450 MEAN PLATELET VOLUME (BEAKER) (test znec=996) 8.5 fL 9.4-12.3 NUCLEATED RED BLOOD CELLS (BEAKER) (test 0 /100 WBC 0-0 rfte=157) NEUTROPHILS RELATIVE PERCENT (BEAKER) (test 70 % omho=340) LYMPHOCYTES RELATIVE PERCENT (BEAKER) (test 12 % lpfa=912) MONOCYTES RELATIVE PERCENT (BEAKER) (test 13 % rsrb=615) EOSINOPHILS RELATIVE PERCENT (BEAKER) (test 3 % vgqe=401) BASOPHILS RELATIVE PERCENT (BEAKER) (test 0 % eenb=497) NEUTROPHILS ABSOLUTE COUNT (BEAKER) (test 4.87 K/ L 1.56-6.13 fzdv=499) LYMPHOCYTES ABSOLUTE COUNT (BEAKER) (test 0.86 K/ L 1.18-3.74 eoxc=007) MONOCYTES ABSOLUTE COUNT (BEAKER) (test 0.89 K/ L 0.24-0.36 ztbd=365) EOSINOPHILS ABSOLUTE COUNT (BEAKER) (test 0.18 K/ L 0.04-0.36 zdea=008) BASOPHILS ABSOLUTE COUNT (BEAKER) (test 0.03 K/ L 0.01-0.08 tnbr=628) IMMATURE GRANULOCYTES-RELATIVE PERCENT (BEAKER) 1 % 0-1 (test wyyn=7448) CBC (HEMOGRAM ONLY)2019-01-19 05:32:00 Test Item Value Reference Range Comments WHITE BLOOD CELL COUNT (BEAKER) (test jldd=755) 6.9 K/ L 3.5-10.5 RED BLOOD CELL COUNT (BEAKER) (test npud=216) 3.30 M/ L 3.93-5.22 HEMOGLOBIN (BEAKER) (test lvie=333) 10.1 GM/DL 11.2-15.7 HEMATOCRIT (BEAKER) (test ysev=859) 31.9 % 34.1-44.9 MEAN CORPUSCULAR VOLUME (BEAKER) (test oqdu=885) 96.7 fL 79.4-94.8 MEAN CORPUSCULAR HEMOGLOBIN (BEAKER) (test 30.6 pg 25.6-32.2 aliw=792) MEAN CORPUSCULAR HEMOGLOBIN CONC (BEAKER) (test 31.7 GM/DL 32.2-35.5 hokl=129) RED CELL DISTRIBUTION WIDTH (BEAKER) (test 18.4 % 11.7-14.4 lhuv=230) PLATELET COUNT (BEAKER) (test zcfb=026) 182 K/CU MM 150-450 MEAN PLATELET VOLUME (BEAKER) (test vqux=990) 8.5 fL 9.4-12.3 NUCLEATED RED BLOOD CELLS (BEAKER) (test 0 /100 WBC 0-0 mxvl=211) POCT-GLUCOSE [id number] 21:32:00 Test Item Value Reference Range Comments POC-GLUCOSE METER (BEAKER) 121 mg/dL 70-110 TESTED AT [facility] [address] [facility] (test yvms=1069) [facility] [address] CBC W/PLT COUNT & AUTO [id number] 16:22:00 Test Item Value Reference Range Comments WHITE BLOOD CELL COUNT (BEAKER) (test mpup=099) 7.5 K/ L 3.5-10.5 RED BLOOD CELL COUNT (BEAKER) (test bhbz=795) 3.36 M/ L 3.93-5.22 HEMOGLOBIN (BEAKER) (test unxl=436) 10.2 GM/DL 11.2-15.7 HEMATOCRIT (BEAKER) (test cftr=878) 32.1 % 34.1-44.9 MEAN CORPUSCULAR VOLUME (BEAKER) (test dqpr=527) 95.5 fL 79.4-94.8 MEAN CORPUSCULAR HEMOGLOBIN (BEAKER) (test 30.4 pg 25.6-32.2 bvzo=285) MEAN CORPUSCULAR HEMOGLOBIN CONC (BEAKER) (test 31.8 GM/DL 32.2-35.5 hrnk=932) RED CELL DISTRIBUTION WIDTH (BEAKER) (test 17.7 % 11.7-14.4 cxru=055) PLATELET COUNT (BEAKER) (test pvbm=801) 175 K/CU MM 150-450 MEAN PLATELET VOLUME (BEAKER) (test rlbb=249) 9.0 fL 9.4-12.3 NUCLEATED RED BLOOD CELLS (BEAKER) (test 0 /100 WBC 0-0 ridn=720) NEUTROPHILS RELATIVE PERCENT (BEAKER) (test 72 % hkrm=047) LYMPHOCYTES RELATIVE PERCENT (BEAKER) (test 10 % kkxw=808) MONOCYTES RELATIVE PERCENT (BEAKER) (test 13 % xmzj=394) EOSINOPHILS RELATIVE PERCENT (BEAKER) (test 3 % rsct=534) BASOPHILS RELATIVE PERCENT (BEAKER) (test 1 % pjzt=124) NEUTROPHILS ABSOLUTE COUNT (BEAKER) (test 5.35 K/ L 1.56-6.13 nrem=476) LYMPHOCYTES ABSOLUTE COUNT (BEAKER) (test 0.76 K/ L 1.18-3.74 npli=235) MONOCYTES ABSOLUTE COUNT (BEAKER) (test 0.94 K/ L 0.24-0.36 lagr=701) EOSINOPHILS ABSOLUTE COUNT (BEAKER) (test 0.23 K/ L 0.04-0.36 azve=998) BASOPHILS ABSOLUTE COUNT (BEAKER) (test 0.04 K/ L 0.01-0.08 lveu=028) IMMATURE GRANULOCYTES-RELATIVE PERCENT (BEAKER) 2 % 0-1 (test ybzx=5388) CBC W/PLT COUNT & AUTO [id number] 09:09:00 Test Item Value Reference Range Comments WHITE BLOOD CELL COUNT (BEAKER) (test gice=861) 7.3 K/ L 3.5-10.5 RED BLOOD CELL COUNT (BEAKER) (test aane=305) 3.46 M/ L 3.93-5.22 HEMOGLOBIN (BEAKER) (test ixog=123) 10.3 GM/DL 11.2-15.7 HEMATOCRIT (BEAKER) (test xnqf=798) 33.1 % 34.1-44.9 MEAN CORPUSCULAR VOLUME (BEAKER) (test kbkz=770) 95.7 fL 79.4-94.8 MEAN CORPUSCULAR HEMOGLOBIN (BEAKER) (test 29.8 pg 25.6-32.2 zchi=797) MEAN CORPUSCULAR HEMOGLOBIN CONC (BEAKER) (test 31.1 GM/DL 32.2-35.5 qrby=999) RED CELL DISTRIBUTION WIDTH (BEAKER) (test 17.7 % 11.7-14.4 pddi=969) PLATELET COUNT (BEAKER) (test hfqb=018) 182 K/CU MM 150-450 MEAN PLATELET VOLUME (BEAKER) (test dmzc=865) 8.5 fL 9.4-12.3 NUCLEATED RED BLOOD CELLS (BEAKER) (test 0 /100 WBC 0-0 uika=350) NEUTROPHILS RELATIVE PERCENT (BEAKER) (test 71 % jqii=998) LYMPHOCYTES RELATIVE PERCENT (BEAKER) (test 11 % cczo=367) MONOCYTES RELATIVE PERCENT (BEAKER) (test 12 % icog=393) EOSINOPHILS RELATIVE PERCENT (BEAKER) (test 3 % lcau=278) BASOPHILS RELATIVE PERCENT (BEAKER) (test 1 % fzff=114) NEUTROPHILS ABSOLUTE COUNT (BEAKER) (test 5.16 K/ L 1.56-6.13 fsme=342) LYMPHOCYTES ABSOLUTE COUNT (BEAKER) (test 0.82 K/ L 1.18-3.74 yxpj=250) MONOCYTES ABSOLUTE COUNT (BEAKER) (test 0.89 K/ L 0.24-0.36 hxpp=521) EOSINOPHILS ABSOLUTE COUNT (BEAKER) (test 0.23 K/ L 0.04-0.36 adym=652) BASOPHILS ABSOLUTE COUNT (BEAKER) (test 0.05 K/ L 0.01-0.08 sycm=067) IMMATURE GRANULOCYTES-RELATIVE PERCENT (BEAKER) 2 % 0-1 (test sopo=7281) BASIC METABOLIC [id number] 06:46:00 Test Item Value Reference Range Comments SODIUM (BEAKER) (test 135 meq/L 136-145 thqa=380) POTASSIUM (BEAKER) (test 3.8 meq/L 3.5-5.1 urrh=541) CHLORIDE (BEAKER) (test 97 meq/L 98-107 hrtp=649) CO2 (BEAKER) (test 31 meq/L 22-29 vytz=594) BLOOD UREA NITROGEN 10 mg/dL 7-21 (BEAKER) (test gcoo=061) CREATININE (BEAKER) (test 0.69 mg/dL 0.57-1.25 gtjx=356) GLUCOSE RANDOM (BEAKER) 84 mg/dL 70-105 (test tjvr=081) CALCIUM (BEAKER) (test 8.9 mg/dL 8.4-10.2 xhqb=793) EGFR (BEAKER) (test 81 mL/min/1.73 sq m ESTIMATED GFR IS NOT xkfy=2347) ACCURATE CREATININE CLEARANCE IN PREDICTING GLOMERULAR FILTRATION RATE. ESTIMATED GFR IS NOT APPLICABLE FOR DIALYSIS PATIENTS. [id number] 06:44:00 Test Item Value Reference Range Comments PHOSPHORUS (BEAKER) (test dcnm=003) 2.6 mg/dL 2.3-4.7 [id number] 06:44:00 Test Item Value Reference Range Comments MAGNESIUM (BEAKER) (test nzff=546) 1.5 mg/dL 1.6-2.6 CALCIUM, [id number] 06:02:00 Test Item Value Reference Range Comments CALCIUM IONIZED (BEAKER) (test qvie=861) 1.03 mmol/L 1.12-1.27 PH, BLOOD (BEAKER) (test lpxc=7764) 7.43 PROTHROMBIN [id number] 06:00:00 Test Item Value Reference Range Comments PROTIME (BEAKER) (test tdns=271) 22.6 seconds 11.7-14.7 INR (BEAKER) (test kfcg=450) 2.0 <=5.9 RECOMMENDED COUMADIN/WARFARIN INR THERAPY RANGESSTANDARD DOSE: 2.0 - 3.0 Includes: PROPHYLAXIS forvenous thrombosis, systemic embolization; TREATMENT for venous thrombosis and/or pulmonary embolus.HIGH RISK: Target INR is 2.5-3.5 for patients with mechanical heart valves.While on warfarin.HEMOGLOBIN AND [id number] 05:52:00 Test Item Value Reference Range Comments HEMOGLOBIN (BEAKER) (test dqzz=053) 9.8 GM/DL 11.2-15.7 HEMATOCRIT (BEAKER) (test ntge=252) 31.5 % 34.1-44.9 Baseline and daily starting prior to initiation of heparin infusionCBC ( HEMOGRAM ONLY)[id number] 05:52:00 Test Item Value Reference Range Comments WHITE BLOOD CELL COUNT (BEAKER) (test knqr=572) 6.7 K/ L 3.5-10.5 RED BLOOD CELL COUNT (BEAKER) (test zioc=289) 3.30 M/ L 3.93-5.22 HEMOGLOBIN (BEAKER) (test zraq=116) 9.8 GM/DL 11.2-15.7 HEMATOCRIT (BEAKER) (test qzwh=699) 31.5 % 34.1-44.9 MEAN CORPUSCULAR VOLUME (BEAKER) (test xvzs=319) 95.5 fL 79.4-94.8 MEAN CORPUSCULAR HEMOGLOBIN (BEAKER) (test 29.7 pg 25.6-32.2 zzwy=762) MEAN CORPUSCULAR HEMOGLOBIN CONC (BEAKER) (test 31.1 GM/DL 32.2-35.5 zfbr=819) RED CELL DISTRIBUTION WIDTH (BEAKER) (test 17.7 % 11.7-14.4 qofh=332) PLATELET COUNT (BEAKER) (test jvzw=364) 171 K/CU MM 150-450 MEAN PLATELET VOLUME (BEAKER) (test oaxb=477) 8.8 fL 9.4-12.3 NUCLEATED RED BLOOD CELLS (BEAKER) (test 0 /100 WBC 0-0 baxw=118) BASIC METABOLIC [id number] 07:12:00 Test Item Value Reference Range Comments SODIUM (BEAKER) (test 133 meq/L 136-145 bgpk=987) POTASSIUM (BEAKER) (test 3.8 meq/L 3.5-5.1 sujh=994) CHLORIDE (BEAKER) (test 97 meq/L 98-107 qagj=486) CO2 (BEAKER) (test 30 meq/L 22-29 viww=582) BLOOD UREA NITROGEN 11 mg/dL 7-21 (BEAKER) (test rzdh=690) CREATININE (BEAKER) (test 0.72 mg/dL 0.57-1.25 hdrj=793) GLUCOSE RANDOM (BEAKER) 83 mg/dL 70-105 (test lxxh=913) CALCIUM (BEAKER) (test 7.5 mg/dL 8.4-10.2 vmaz=628) EGFR (BEAKER) (test 77 mL/min/1.73 sq m ESTIMATED GFR IS NOT goju=6763) ACCURATE CREATININE CLEARANCE IN PREDICTING GLOMERULAR FILTRATION RATE. ESTIMATED GFR IS NOT APPLICABLE FOR DIALYSIS PATIENTS. Specimen slightly [id number] 07:11:00 Test Item Value Reference Range Comments PHOSPHORUS (BEAKER) (test cuxg=697) 2.7 mg/dL 2.3-4.7 [id number] 07:11:00 Test Item Value Reference Range Comments MAGNESIUM (BEAKER) (test unzu=706) 1.7 mg/dL 1.6-2.6 CBC W/PLT COUNT & AUTO [id number] 06:20:00 Test Item Value Reference Range Comments WHITE BLOOD CELL COUNT (BEAKER) (test erxq=709) 7.2 K/ L 3.5-10.5 RED BLOOD CELL COUNT (BEAKER) (test kjtq=663) 3.12 M/ L 3.93-5.22 HEMOGLOBIN (BEAKER) (test eefy=605) 9.3 GM/DL 11.2-15.7 HEMATOCRIT (BEAKER) (test rhao=722) 29.4 % 34.1-44.9 MEAN CORPUSCULAR VOLUME (BEAKER) (test brxt=885) 94.2 fL 79.4-94.8 MEAN CORPUSCULAR HEMOGLOBIN (BEAKER) (test 29.8 pg 25.6-32.2 vtbx=913) MEAN CORPUSCULAR HEMOGLOBIN CONC (BEAKER) (test 31.6 GM/DL 32.2-35.5 seuf=904) RED CELL DISTRIBUTION WIDTH (BEAKER) (test 17.2 % 11.7-14.4 lapm=441) PLATELET COUNT (BEAKER) (test vweb=533) 172 K/CU MM 150-450 MEAN PLATELET VOLUME (BEAKER) (test lrqk=492) 8.7 fL 9.4-12.3 NUCLEATED RED BLOOD CELLS (BEAKER) (test 0 /100 WBC 0-0 vvkr=302) NEUTROPHILS RELATIVE PERCENT (BEAKER) (test 75 % yavd=920) LYMPHOCYTES RELATIVE PERCENT (BEAKER) (test 9 % fiuw=847) MONOCYTES RELATIVE PERCENT (BEAKER) (test 11 % oeau=766) EOSINOPHILS RELATIVE PERCENT (BEAKER) (test 3 % hjcq=507) BASOPHILS RELATIVE PERCENT (BEAKER) (test 1 % eylw=293) NEUTROPHILS ABSOLUTE COUNT (BEAKER) (test 5.35 K/ L 1.56-6.13 qfao=884) LYMPHOCYTES ABSOLUTE COUNT (BEAKER) (test 0.67 K/ L 1.18-3.74 bogs=362) MONOCYTES ABSOLUTE COUNT (BEAKER) (test 0.80 K/ L 0.24-0.36 bcwd=363) EOSINOPHILS ABSOLUTE COUNT (BEAKER) (test 0.19 K/ L 0.04-0.36 yobu=004) BASOPHILS ABSOLUTE COUNT (BEAKER) (test 0.04 K/ L 0.01-0.08 iegn=212) IMMATURE GRANULOCYTES-RELATIVE PERCENT (BEAKER) 2 % 0-1 (test jcct=7601) PROTHROMBIN [id number] 06:05:00 Test Item Value Reference Range Comments PROTIME (BEAKER) (test heis=475) 22.4 seconds 11.7-14.7 INR (BEAKER) (test rdip=417) 2.0 <=5.9 RECOMMENDED COUMADIN/WARFARIN INR THERAPY RANGESSTANDARD DOSE: 2.0 - 3.0 Includes: PROPHYLAXIS forvenous thrombosis, systemic embolization; TREATMENT for venous thrombosis and/or pulmonary embolus.HIGH RISK: Target INR is 2.5-3.5 for patients with mechanical heart valves.While on warfarin.CBC (HEMOGRAM ONLY) 2019-01-17 06:02:00 Test Item Value Reference Range Comments WHITE BLOOD CELL COUNT (BEAKER) (test atvb=725) 7.2 K/ L 3.5-10.5 RED BLOOD CELL COUNT (BEAKER) (test tifi=648) 3.12 M/ L 3.93-5.22 HEMOGLOBIN (BEAKER) (test rewb=066) 9.3 GM/DL 11.2-15.7 HEMATOCRIT (BEAKER) (test abck=299) 29.4 % 34.1-44.9 MEAN CORPUSCULAR VOLUME (BEAKER) (test iwvf=901) 94.2 fL 79.4-94.8 MEAN CORPUSCULAR HEMOGLOBIN (BEAKER) (test 29.8 pg 25.6-32.2 nlfx=984) MEAN CORPUSCULAR HEMOGLOBIN CONC (BEAKER) (test 31.6 GM/DL 32.2-35.5 adto=571) RED CELL DISTRIBUTION WIDTH (BEAKER) (test 17.2 % 11.7-14.4 kmfx=931) PLATELET COUNT (BEAKER) (test zwiz=160) 172 K/CU MM 150-450 MEAN PLATELET VOLUME (BEAKER) (test uzlc=429) 8.7 fL 9.4-12.3 NUCLEATED RED BLOOD CELLS (BEAKER) (test 0 /100 WBC 0-0 ygyh=964) CALCIUM, [id number] 05:57:00 Test Item Value Reference Range Comments CALCIUM IONIZED (BEAKER) (test ppoc=221) 1.09 mmol/L 1.12-1.27 PH, BLOOD (BEAKER) (test zqrx=4770) 7.45 CBC W/PLT COUNT & AUTO [id number] 02:27:00 Test Item Value Reference Range Comments WHITE BLOOD CELL COUNT (BEAKER) (test xayi=601) 7.4 K/ L 3.5-10.5 RED BLOOD CELL COUNT (BEAKER) (test epkb=352) 3.18 M/ L 3.93-5.22 HEMOGLOBIN (BEAKER) (test xqsw=181) 9.4 GM/DL 11.2-15.7 HEMATOCRIT (BEAKER) (test gzpv=180) 29.8 % 34.1-44.9 MEAN CORPUSCULAR VOLUME (BEAKER) (test ptzg=693) 93.7 fL 79.4-94.8 MEAN CORPUSCULAR HEMOGLOBIN (BEAKER) (test 29.6 pg 25.6-32.2 pmde=515) MEAN CORPUSCULAR HEMOGLOBIN CONC (BEAKER) (test 31.5 GM/DL 32.2-35.5 osuj=049) RED CELL DISTRIBUTION WIDTH (BEAKER) (test 17.1 % 11.7-14.4 hgmc=638) PLATELET COUNT (BEAKER) (test huuy=524) 160 K/CU MM 150-450 MEAN PLATELET VOLUME (BEAKER) (test mnvr=202) 8.8 fL 9.4-12.3 NUCLEATED RED BLOOD CELLS (BEAKER) (test 0 /100 WBC 0-0 iesg=364) NEUTROPHILS RELATIVE PERCENT (BEAKER) (test 75 % iatx=491) LYMPHOCYTES RELATIVE PERCENT (BEAKER) (test 9 % ndle=604) MONOCYTES RELATIVE PERCENT (BEAKER) (test 11 % ydhc=615) EOSINOPHILS RELATIVE PERCENT (BEAKER) (test 2 % lwff=008) BASOPHILS RELATIVE PERCENT (BEAKER) (test 1 % jxja=390) NEUTROPHILS ABSOLUTE COUNT (BEAKER) (test 5.56 K/ L 1.56-6.13 onve=116) LYMPHOCYTES ABSOLUTE COUNT (BEAKER) (test 0.69 K/ L 1.18-3.74 sxri=590) MONOCYTES ABSOLUTE COUNT (BEAKER) (test 0.84 K/ L 0.24-0.36 ihqb=374) EOSINOPHILS ABSOLUTE COUNT (BEAKER) (test 0.16 K/ L 0.04-0.36 ekuf=078) BASOPHILS ABSOLUTE COUNT (BEAKER) (test 0.04 K/ L 0.01-0.08 ahtr=507) IMMATURE GRANULOCYTES-RELATIVE PERCENT (BEAKER) 2 % 0-1 (test lyjg=9359) HEMOGLOBIN AND [id number] 01:50:00 Test Item Value Reference Range Comments HEMOGLOBIN (BEAKER) (test weba=066) 9.4 GM/DL 11.2-15.7 HEMATOCRIT (BEAKER) (test oyat=480) 29.8 % 34.1-44.9 CBC W/PLT COUNT & AUTO [id number] 15:24:00 Test Item Value Reference Range Comments WHITE BLOOD CELL COUNT (BEAKER) (test uwju=032) 8.0 K/ L 3.5-10.5 RED BLOOD CELL COUNT (BEAKER) (test rgdk=015) 3.07 M/ L 3.93-5.22 HEMOGLOBIN (BEAKER) (test zflm=241) 9.2 GM/DL 11.2-15.7 HEMATOCRIT (BEAKER) (test jpjy=779) 28.7 % 34.1-44.9 MEAN CORPUSCULAR VOLUME (BEAKER) (test wzgf=805) 93.5 fL 79.4-94.8 MEAN CORPUSCULAR HEMOGLOBIN (BEAKER) (test 30.0 pg 25.6-32.2 rjdp=505) MEAN CORPUSCULAR HEMOGLOBIN CONC (BEAKER) (test 32.1 GM/DL 32.2-35.5 zbzl=059) RED CELL DISTRIBUTION WIDTH (BEAKER) (test 16.8 % 11.7-14.4 xjec=624) PLATELET COUNT (BEAKER) (test vfqx=340) 163 K/CU MM 150-450 MEAN PLATELET VOLUME (BEAKER) (test tmlt=467) 8.5 fL 9.4-12.3 NUCLEATED RED BLOOD CELLS (BEAKER) (test 0 /100 WBC 0-0 igbm=033) NEUTROPHILS RELATIVE PERCENT (BEAKER) (test 72 % mpng=264) LYMPHOCYTES RELATIVE PERCENT (BEAKER) (test 9 % gceq=481) MONOCYTES RELATIVE PERCENT (BEAKER) (test 12 % ifqz=695) EOSINOPHILS RELATIVE PERCENT (BEAKER) (test 5 % brms=927) BASOPHILS RELATIVE PERCENT (BEAKER) (test 0 % xrov=079) NEUTROPHILS ABSOLUTE COUNT (BEAKER) (test 5.74 K/ L 1.56-6.13 vrmo=861) LYMPHOCYTES ABSOLUTE COUNT (BEAKER) (test 0.72 K/ L 1.18-3.74 eflm=465) MONOCYTES ABSOLUTE COUNT (BEAKER) (test 0.94 K/ L 0.24-0.36 nipc=713) EOSINOPHILS ABSOLUTE COUNT (BEAKER) (test 0.37 K/ L 0.04-0.36 njlu=260) BASOPHILS ABSOLUTE COUNT (BEAKER) (test 0.03 K/ L 0.01-0.08 fema=486) IMMATURE GRANULOCYTES-RELATIVE PERCENT (BEAKER) 2 % 0-1 (test gvoq=1928) HEMOGLOBIN AND [id number] 15:08:00 Test Item Value Reference Range Comments HEMOGLOBIN (BEAKER) (test fbti=121) 9.2 GM/DL 11.2-15.7 HEMATOCRIT (BEAKER) (test wwfb=579) 28.6 % 34.1-44.9 CALCIUM, [id number] 12:12:00 Test Item Value Reference Range Comments CALCIUM IONIZED (BEAKER) (test znnm=096) 1.11 mmol/L 1.12-1.27 PH, BLOOD (BEAKER) (test nzay=6776) 7.45 [id number] 05:39:00 Test Item Value Reference Range Comments PHOSPHORUS (BEAKER) (test qkkc=105) 3.1 mg/dL 2.3-4.7 [id number] 05:39:00 Test Item Value Reference Range Comments MAGNESIUM (BEAKER) (test bryn=929) 1.6 mg/dL 1.6-2.6 BASIC METABOLIC [id number] 05:39:00 Test Item Value Reference Range Comments SODIUM (BEAKER) (test 132 meq/L 136-145 imxy=818) POTASSIUM (BEAKER) (test 4.0 meq/L 3.5-5.1 tolt=763) CHLORIDE (BEAKER) (test 98 meq/L 98-107 mbyl=992) CO2 (BEAKER) (test 29 meq/L 22-29 tbtm=290) BLOOD UREA NITROGEN 11 mg/dL 7-21 (BEAKER) (test ygeu=533) CREATININE (BEAKER) (test 0.72 mg/dL 0.57-1.25 kdde=919) GLUCOSE RANDOM (BEAKER) 88 mg/dL 70-105 (test bbax=250) CALCIUM (BEAKER) (test 8.4 mg/dL 8.4-10.2 mbqf=508) EGFR (BEAKER) (test 77 mL/min/1.73 sq m ESTIMATED GFR IS NOT tmpc=2177) ACCURATE CREATININE CLEARANCE IN PREDICTING GLOMERULAR FILTRATION RATE. ESTIMATED GFR IS NOT APPLICABLE FOR DIALYSIS PATIENTS. Specimen slightly ictericPROTHROMBIN [id number] 05:30:00 Test Item Value Reference Range Comments PROTIME (BEAKER) (test fogy=192) 23.3 seconds 11.7-14.7 INR (BEAKER) (test oweq=690) 2.1 <=5.9 RECOMMENDED COUMADIN/WARFARIN INR THERAPY RANGESSTANDARD DOSE: 2.0 - 3.0 Includes: PROPHYLAXIS forvenous thrombosis, systemic embolization; TREATMENT for venous thrombosis and/or pulmonary embolus.HIGH RISK: Target INR is 2.5-3.5 for patients with mechanical heart valves.While on warfarin.HEMOGLOBIN AND [id number] 05:08:00 Test Item Value Reference Range Comments HEMOGLOBIN (BEAKER) (test fzck=934) 9.0 GM/DL 11.2-15.7 HEMATOCRIT (BEAKER) (test gtsd=971) 28.2 % 34.1-44.9 Baseline and daily starting prior to initiation of heparin infusionCBC ( HEMOGRAM ONLY)2019-01-16 05:08:00 Test Item Value Reference Range Comments WHITE BLOOD CELL COUNT (BEAKER) (test fucm=093) 8.2 K/ L 3.5-10.5 RED BLOOD CELL COUNT (BEAKER) (test cudd=339) 3.03 M/ L 3.93-5.22 HEMOGLOBIN (BEAKER) (test axxy=072) 9.0 GM/DL 11.2-15.7 HEMATOCRIT (BEAKER) (test owgi=170) 28.2 % 34.1-44.9 MEAN CORPUSCULAR VOLUME (BEAKER) (test pzvb=205) 93.1 fL 79.4-94.8 MEAN CORPUSCULAR HEMOGLOBIN (BEAKER) (test 29.7 pg 25.6-32.2 lxxb=432) MEAN CORPUSCULAR HEMOGLOBIN CONC (BEAKER) (test 31.9 GM/DL 32.2-35.5 kmfz=792) RED CELL DISTRIBUTION WIDTH (BEAKER) (test 16.3 % 11.7-14.4 szwl=187) PLATELET COUNT (BEAKER) (test yvja=750) 161 K/CU MM 150-450 MEAN PLATELET VOLUME (BEAKER) (test mhlo=084) 9.2 fL 9.4-12.3 NUCLEATED RED BLOOD CELLS (BEAKER) (test 0 /100 WBC 0-0 lahl=356) [id number] 17:14:00 Test Item Value Reference Range Comments PARTIAL THROMBOPLASTIN TIME (BEAKER) (test 124.6 seconds 22.5-36.0 uzji=352) CT, [id number] 16:32:00FINAL REPORT TECHNIQUE: CT of the abdomen and pelvis WITHOUT intravenous contrast and WITHOUT oral contrast. Dose modulation, iterative reconstruction, and/or weight-based adjustment of the mA/kV was utilized to reduce the radiation dose to as low as reasonably achievable. INDICATION: anemia, R/O retroperitoneal bleeding. COMPARISON: None. FINDINGS: ABSENCE OF INTRAVENOUS CONTRAST DECREASES SENSITIVITY FOR DETECTION OF FOCAL LESIONS AND VASCULAR PATHOLOGY. 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 Small bilateral partially visualized pleural effusions with adjacent atelectasis. Marked right ventricular enlargement with single enlarged hepatic veins and suprahepatic inferior vena cava. HEPATOBILIARY: The liver is mildly nodular. Subcentimeter calcified granulomas are scattered throughout the liver. No focal hepatic lesions. Gallbladder isunremarkable. Gas in the common bile duct, common hepatic duct, and left intrahepatic bile duct. SPLEEN: No splenomegaly. Scattered subcentimeter calcified and was.PANCREAS: No focal masses or ductal dilatation. ADRENALS: No adrenal nodules.KIDNEYS/URETERS: No hydronephrosis, stones, or exophytic masses.PELVIC ORGANS/BLADDER: Unremarkable. PERITONEUM/ RETROPERITONEUM: A left retroperitoneal hematoma involves the iliac is muscle, psoas muscle, and soft tissue anterior to these muscles. This measures up to 12.4 x 7.9 x 9.9 cm. LYMPH NODES: No lymphadenopathy.VESSELS: Moderate calcific atherosclerosis of the abdominal aorta. GI TRACT: No distention or wall thickening. Question mild thickening of a diverticulum in the sigmoid colon with some surrounding inflammatory change. The appendix is normal. BONES AND SOFT TISSUES: The bones are diffusely demineralized. Moderate degenerative disc changes of thelumbar spine. IMPRESSION: 1.A left retroperitoneal hematoma measures up to 12.4 x 7.9 x 9.9 cm. 2.Findings are concerning for an acute sigmoid diverticulitis without an abscess or free air. 3.The right atrium is markedly enlarged with an engorged inferior vena cava and hepatic veins, most consistent with congestive heart failure. This is likely the cause of the small bilateral pleural effusions as well. 4.The nodularity of the liver is concerning for cirrhosis. Given the findings in the heart, thiscould be due to congestive hepatopathy, but a formal liver disease workup is recommended. The retroperitoneal hematoma was discussed with Dr. Cortes on 01/15/2019 at 4:19 PM. Signed: Harpreet Lassiter MDReport Verified Date/Time: 01/15/2019 16:32:57 Reading Location: [facility] Diagnostic Imaging Reading Room -[place] [id number] 08:46:00 Test Item Value Reference Range Comments PARTIAL THROMBOPLASTIN TIME (BEAKER) (test 67.8 seconds 22.5-36.0 mbgq=831) CBC (HEMOGRAM ONLY)2019-01-15 06:56:00 Test Item Value Reference Range Comments WHITE BLOOD CELL COUNT (BEAKER) (test iydp=324) 7.9 K/ L 3.5-10.5 RED BLOOD CELL COUNT (BEAKER) (test fytw=838) 2.13 M/ L 3.93-5.22 HEMOGLOBIN (BEAKER) (test xqmh=448) 6.3 GM/DL 11.2-15.7 HEMATOCRIT (BEAKER) (test hpdq=095) 20.1 % 34.1-44.9 MEAN CORPUSCULAR VOLUME (BEAKER) (test bjoq=356) 94.4 fL 79.4-94.8 MEAN CORPUSCULAR HEMOGLOBIN (BEAKER) (test 29.6 pg 25.6-32.2 ovul=565) MEAN CORPUSCULAR HEMOGLOBIN CONC (BEAKER) (test 31.3 GM/DL 32.2-35.5 sblf=295) RED CELL DISTRIBUTION WIDTH (BEAKER) (test 17.5 % 11.7-14.4 jcjv=377) PLATELET COUNT (BEAKER) (test yycd=881) 131 K/CU MM 150-450 MEAN PLATELET VOLUME (BEAKER) (test xkbi=272) 8.5 fL 9.4-12.3 NUCLEATED RED BLOOD CELLS (BEAKER) (test 0 /100 WBC 0-0 aqbu=816) CALCIUM, [id number] 06:48:00 Test Item Value Reference Range Comments CALCIUM IONIZED (BEAKER) (test fdtm=846) 1.10 mmol/L 1.12-1.27 PH, BLOOD (BEAKER) (test liup=4664) 7.43 PROTHROMBIN [id number] 06:32:00 Test Item Value Reference Range Comments PROTIME (BEAKER) (test lxpi=127) 27.1 seconds 11.7-14.7 INR (BEAKER) (test pcna=052) 2.5 <=5.9 RECOMMENDED COUMADIN/WARFARIN INR THERAPY RANGESSTANDARD DOSE: 2.0 - 3.0 Includes: PROPHYLAXIS forvenous thrombosis, systemic embolization; TREATMENT for venous thrombosis and/or pulmonary embolus.HIGH RISK: Target INR is 2.5-3.5 for patients with mechanical heart valves.While on warfarin.[id number] 06:04:00 Test Item Value Reference Range Comments PHOSPHORUS (BEAKER) (test duif=902) 2.8 mg/dL 2.3-4.7 [id number] 06:04:00 Test Item Value Reference Range Comments MAGNESIUM (BEAKER) (test ahij=518) 1.6 mg/dL 1.6-2.6 BASIC METABOLIC [id number] 06:04:00 Test Item Value Reference Range Comments SODIUM (BEAKER) (test 131 meq/L 136-145 tesi=382) POTASSIUM (BEAKER) (test 4.0 meq/L 3.5-5.1 nefs=382) CHLORIDE (BEAKER) (test 101 meq/L 98-107 rbkk=257) CO2 (BEAKER) (test 25 meq/L 22-29 ofpw=927) BLOOD UREA NITROGEN 11 mg/dL 7-21 (BEAKER) (test hssm=914) CREATININE (BEAKER) (test 0.70 mg/dL 0.57-1.25 sufr=829) GLUCOSE RANDOM (BEAKER) 92 mg/dL 70-105 (test akzj=040) CALCIUM (BEAKER) (test 8.3 mg/dL 8.4-10.2 gmtd=087) EGFR (BEAKER) (test 79 mL/min/1.73 sq m ESTIMATED GFR IS NOT nmdt=2752) ACCURATE CREATININE CLEARANCE IN PREDICTING GLOMERULAR FILTRATION RATE. ESTIMATED GFR IS NOT APPLICABLE FOR DIALYSIS PATIENTS. [id number] 02:04:00 Test Item Value Reference Range Comments PARTIAL THROMBOPLASTIN TIME (BEAKER) (test 87.4 seconds 22.5-36.0 qxoo=527) [id number] 00:36:00 Test Item Value Reference Range Comments PARTIAL THROMBOPLASTIN TIME (BEAKER) (test 195.8 seconds 22.5-36.0 gaei=143) [id number] 22:25:00 Test Item Value Reference Range Comments PARTIAL THROMBOPLASTIN TIME (BEAKER) (test > seconds 22.5-36.0 yvvz=989) [id number] 16:22:00 Test Item Value Reference Range Comments PARTIAL THROMBOPLASTIN TIME (BEAKER) (test 94.3 seconds 22.5-36.0 tjmx=516) [id number] 10:25:00 Test Item Value Reference Range Comments PARTIAL THROMBOPLASTIN TIME (BEAKER) (test 52.4 seconds 22.5-36.0 fgjr=437) HEMOGLOBIN AND [id number] 10:12:00 Test Item Value Reference Range Comments HEMOGLOBIN (BEAKER) (test igel=845) 7.0 GM/DL 11.2-15.7 HEMATOCRIT (BEAKER) (test vtnm=733) 22.3 % 34.1-44.9 [id number] 07:18:00 Test Item Value Reference Range Comments PHOSPHORUS (BEAKER) (test msji=292) 2.7 mg/dL 2.3-4.7 [id number] 07:18:00 Test Item Value Reference Range Comments MAGNESIUM (BEAKER) (test vzed=337) 1.7 mg/dL 1.6-2.6 BASIC METABOLIC [id number] 07:18:00 Test Item Value Reference Range Comments SODIUM (BEAKER) (test 132 meq/L 136-145 xvnt=975) POTASSIUM (BEAKER) (test 4.7 meq/L 3.5-5.1 yujf=737) CHLORIDE (BEAKER) (test 103 meq/L 98-107 jitn=094) CO2 (BEAKER) (test 25 meq/L 22-29 xiov=846) BLOOD UREA NITROGEN 13 mg/dL 7-21 (BEAKER) (test pvxx=536) CREATININE (BEAKER) (test 0.70 mg/dL 0.57-1.25 hpqs=076) GLUCOSE RANDOM (BEAKER) 95 mg/dL 70-105 (test tewl=512) CALCIUM (BEAKER) (test 8.4 mg/dL 8.4-10.2 frkw=011) EGFR (BEAKER) (test 79 mL/min/1.73 sq m ESTIMATED GFR IS NOT wjpm=4719) ACCURATE CREATININE CLEARANCE IN PREDICTING GLOMERULAR FILTRATION RATE. ESTIMATED GFR IS NOT APPLICABLE FOR DIALYSIS PATIENTS. CBC (HEMOGRAM ONLY)2019-01-14 07:13:00 Test Item Value Reference Range Comments WHITE BLOOD CELL COUNT (BEAKER) (test lkoy=939) 8.9 K/ L 3.5-10.5 RED BLOOD CELL COUNT (BEAKER) (test atxr=515) 2.34 M/ L 3.93-5.22 HEMOGLOBIN (BEAKER) (test ugda=621) 6.8 GM/DL 11.2-15.7 HEMATOCRIT (BEAKER) (test sjwc=448) 22.0 % 34.1-44.9 MEAN CORPUSCULAR VOLUME (BEAKER) (test ltbe=451) 94.0 fL 79.4-94.8 MEAN CORPUSCULAR HEMOGLOBIN (BEAKER) (test 29.1 pg 25.6-32.2 ygud=975) MEAN CORPUSCULAR HEMOGLOBIN CONC (BEAKER) (test 30.9 GM/DL 32.2-35.5 avgj=774) RED CELL DISTRIBUTION WIDTH (BEAKER) (test 17.5 % 11.7-14.4 hdhq=672) PLATELET COUNT (BEAKER) (test bzkt=636) 142 K/CU MM 150-450 MEAN PLATELET VOLUME (BEAKER) (test ikjh=743) 8.6 fL 9.4-12.3 NUCLEATED RED BLOOD CELLS (BEAKER) (test 0 /100 WBC 0-0 qpba=468) CALCIUM, [id number] 06:56:00 Test Item Value Reference Range Comments CALCIUM IONIZED (BEAKER) (test hmfe=811) 1.11 mmol/L 1.12-1.27 PH, BLOOD (BEAKER) (test ihrg=3963) 7.44 [id number] 06:53:00 Test Item Value Reference Range Comments PARTIAL THROMBOPLASTIN TIME (BEAKER) (test 85.3 seconds 22.5-36.0 lbgw=415) PROTHROMBIN [id number] 06:52:00 Test Item Value Reference Range Comments PROTIME (BEAKER) (test kvoz=651) 21.6 seconds 11.7-14.7 INR (BEAKER) (test bgun=830) 1.9 <=5.9 RECOMMENDED COUMADIN/WARFARIN INR THERAPY RANGESSTANDARD DOSE: 2.0 - 3.0 Includes: PROPHYLAXIS forvenous thrombosis, systemic embolization; TREATMENT for venous thrombosis and/or pulmonary embolus.HIGH RISK: Target INR is 2.5-3.5 for patients with mechanical heart valves.While on warfarin.[id number] 02:20 :00 Test Item Value Reference Range Comments PARTIAL THROMBOPLASTIN TIME (BEAKER) (test 119.1 seconds 22.5-36.0 xppf=718) [id number] 18:49:00 Test Item Value Reference Range Comments PARTIAL THROMBOPLASTIN TIME (BEAKER) (test 53.3 seconds 22.5-36.0 nwwd=486) IRON, TIBC, % SAT. (WITHOUT FERRITIN)2019-01-13 15:27:00 Test Item Value Reference Range Comments IRON (BEAKER) (test yxmk=878) 35.0 ug/dL 40.0-160.0 TOTAL IRON BINDING CAPACITY (BEAKER) (test 225 ug/dL 250-450 iaag=020) IRON % SATURATION (2) (BEAKER) (test hufl=7264) 16 % 20-55 [id number] 11:28:00 Test Item Value Reference Range Comments PARTIAL THROMBOPLASTIN TIME (BEAKER) (test 75.0 seconds 22.5-36.0 mklu=922) COMPREHENSIVE METABOLIC [id number] 05:48:00 Test Item Value Reference Range Comments TOTAL PROTEIN (BEAKER) 4.7 gm/dL 6.0-8.3 (test qhft=356) ALBUMIN (BEAKER) (test 2.2 g/dL 3.5-5.0 mnhq=3279) ALKALINE PHOSPHATASE 66 U/L 40-150 (BEAKER) (test pnsi=655) BILIRUBIN TOTAL (BEAKER) 1.7 mg/dL 0.2-1.2 (test zckt=714) SODIUM (BEAKER) (test 135 meq/L 136-145 pcsd=022) POTASSIUM (BEAKER) (test 5.0 meq/L 3.5-5.1 yuao=243) CHLORIDE (BEAKER) (test 105 meq/L 98-107 woou=707) CO2 (BEAKER) (test 24 meq/L 22-29 irob=706) BLOOD UREA NITROGEN 16 mg/dL 7-21 (BEAKER) (test rszl=907) CREATININE (BEAKER) (test 0.71 mg/dL 0.57-1.25 gsiw=984) GLUCOSE RANDOM (BEAKER) 95 mg/dL 70-105 (test cgrj=780) CALCIUM (BEAKER) (test 8.5 mg/dL 8.4-10.2 itru=558) AST (SGOT) (BEAKER) (test 48 U/L 5-34 rqoh=076) ALT (SGPT) (BEAKER) (test 26 U/L 6-55 ztce=703) EGFR (BEAKER) (test 78 mL/min/1.73 sq m ESTIMATED GFR IS NOT ypmn=3690) ACCURATE CREATININE CLEARANCE IN PREDICTING GLOMERULAR FILTRATION RATE. ESTIMATED GFR IS NOT APPLICABLE FOR DIALYSIS PATIENTS. [id number] 05:47:00 Test Item Value Reference Range Comments PHOSPHORUS (BEAKER) (test feoz=616) 2.8 mg/dL 2.3-4.7 [id number] 05:47:00 Test Item Value Reference Range Comments MAGNESIUM (BEAKER) (test fbap=675) 1.8 mg/dL 1.6-2.6 [id number] 05:24:00 Test Item Value Reference Range Comments PARTIAL THROMBOPLASTIN TIME (BEAKER) (test 83.4 seconds 22.5-36.0 ilsd=083) While on warfarin.CBC (HEMOGRAM ONLY)2019-01-13 05:23:00 Test Item Value Reference Range Comments WHITE BLOOD CELL COUNT (BEAKER) (test xpai=808) 11.3 K/ L 3.5-10.5 RED BLOOD CELL COUNT (BEAKER) (test unmf=145) 2.47 M/ L 3.93-5.22 HEMOGLOBIN (BEAKER) (test nddz=316) 7.4 GM/DL 11.2-15.7 HEMATOCRIT (BEAKER) (test xrnx=862) 23.4 % 34.1-44.9 MEAN CORPUSCULAR VOLUME (BEAKER) (test eakw=677) 94.7 fL 79.4-94.8 MEAN CORPUSCULAR HEMOGLOBIN (BEAKER) (test 30.0 pg 25.6-32.2 iezb=376) MEAN CORPUSCULAR HEMOGLOBIN CONC (BEAKER) (test 31.6 GM/DL 32.2-35.5 hmix=489) RED CELL DISTRIBUTION WIDTH (BEAKER) (test 17.5 % 11.7-14.4 lnas=446) PLATELET COUNT (BEAKER) (test oacg=817) 175 K/CU MM 150-450 MEAN PLATELET VOLUME (BEAKER) (test xusl=419) 9.3 fL 9.4-12.3 NUCLEATED RED BLOOD CELLS (BEAKER) (test 0 /100 WBC 0-0 eldv=821) PROTHROMBIN [id number] 05:22:00 Test Item Value Reference Range Comments PROTIME (BEAKER) (test qsux=460) 16.9 seconds 11.7-14.7 INR (BEAKER) (test sdul=971) 1.3 <=5.9 RECOMMENDED COUMADIN/WARFARIN INR THERAPY RANGESSTANDARD DOSE: 2.0 - 3.0 Includes: PROPHYLAXIS forvenous thrombosis, systemic embolization; TREATMENT for venous thrombosis and/or pulmonary embolus.HIGH RISK: Target INR is 2.5-3.5 for patients with mechanical heart valves.While on warfarin.[id number] 22:37 :00 Test Item Value Reference Range Comments PARTIAL THROMBOPLASTIN TIME (BEAKER) (test 53.1 seconds 22.5-36.0 eahi=331) [id number] 20:07:00 Test Item Value Reference Range Comments PARTIAL THROMBOPLASTIN TIME (BEAKER) (test 146.0 seconds 22.5-36.0 nefm=177) Prior to initiating heparinPLATELET [id number] 19:10:00 Test Item Value Reference Range Comments PLATELET COUNT (BEAKER) (test ljmd=853) 160 K/CU MM 150-450 FL, [id number] 16:55:00Reason for exam:->Abnormal imagingPROCEDURE PERFORMED IN O.R. - PLEASE REFER TO THE INTRAOPERATIVE REPORT. CALCIUM, [id number] 07:51:00 Test Item Value Reference Range Comments CALCIUM IONIZED (BEAKER) (test prtv=869) 1.10 mmol/L 1.12-1.27 PH, BLOOD (BEAKER) (test qrys=2022) 7.44 [id number] 07:48:00 Test Item Value Reference Range Comments PHOSPHORUS (BEAKER) (test ykot=413) 2.6 mg/dL 2.3-4.7 [id number] 07:48:00 Test Item Value Reference Range Comments MAGNESIUM (BEAKER) (test ftcs=682) 1.7 mg/dL 1.6-2.6 COMPREHENSIVE METABOLIC [id number] 07:48:00 Test Item Value Reference Range Comments TOTAL PROTEIN (BEAKER) 4.5 gm/dL 6.0-8.3 (test uflr=319) ALBUMIN (BEAKER) (test 2.3 g/dL 3.5-5.0 yfhm=5542) ALKALINE PHOSPHATASE 60 U/L 40-150 (BEAKER) (test pmua=802) BILIRUBIN TOTAL (BEAKER) 1.6 mg/dL 0.2-1.2 (test nugn=327) SODIUM (BEAKER) (test 134 meq/L 136-145 kwch=568) POTASSIUM (BEAKER) (test 4.7 meq/L 3.5-5.1 secp=371) CHLORIDE (BEAKER) (test 105 meq/L 98-107 dbtf=228) CO2 (BEAKER) (test 25 meq/L 22-29 pmtl=197) BLOOD UREA NITROGEN 17 mg/dL 7-21 (BEAKER) (test jinm=554) CREATININE (BEAKER) (test 0.76 mg/dL 0.57-1.25 nhcb=486) GLUCOSE RANDOM (BEAKER) 108 mg/dL 70-105 (test skaw=809) CALCIUM (BEAKER) (test 8.3 mg/dL 8.4-10.2 pmwr=654) AST (SGOT) (BEAKER) (test 44 U/L 5-34 incp=116) ALT (SGPT) (BEAKER) (test 25 U/L 6-55 unwq=844) EGFR (BEAKER) (test 72 mL/min/1.73 sq m ESTIMATED GFR IS NOT ylhf=2357) ACCURATE CREATININE CLEARANCE IN PREDICTING GLOMERULAR FILTRATION RATE. ESTIMATED GFR IS NOT APPLICABLE FOR DIALYSIS PATIENTS. CBC (HEMOGRAM ONLY)2019-01-12 07:16:00 Test Item Value Reference Range Comments WHITE BLOOD CELL COUNT (BEAKER) (test oofg=178) 10.9 K/ L 3.5-10.5 RED BLOOD CELL COUNT (BEAKER) (test obnl=524) 2.47 M/ L 3.93-5.22 HEMOGLOBIN (BEAKER) (test abgf=737) 7.4 GM/DL 11.2-15.7 HEMATOCRIT (BEAKER) (test osyy=728) 22.7 % 34.1-44.9 MEAN CORPUSCULAR VOLUME (BEAKER) (test uqjz=331) 91.9 fL 79.4-94.8 MEAN CORPUSCULAR HEMOGLOBIN (BEAKER) (test 30.0 pg 25.6-32.2 absn=785) MEAN CORPUSCULAR HEMOGLOBIN CONC (BEAKER) (test 32.6 GM/DL 32.2-35.5 dtxm=208) RED CELL DISTRIBUTION WIDTH (BEAKER) (test 17.8 % 11.7-14.4 clyp=618) PLATELET COUNT (BEAKER) (test kepa=058) 145 K/CU MM 150-450 MEAN PLATELET VOLUME (BEAKER) (test ebjg=984) 9.3 fL 9.4-12.3 NUCLEATED RED BLOOD CELLS (BEAKER) (test 0 /100 WBC 0-0 vtxx=683) PROTHROMBIN [id number] 07:11:00 Test Item Value Reference Range Comments PROTIME (BEAKER) (test ocrn=901) 20.2 seconds 11.7-14.7 INR (BEAKER) (test txpd=422) 1.7 <=5.9 RECOMMENDED COUMADIN/WARFARIN INR THERAPY RANGESSTANDARD DOSE: 2.0 - 3.0 Includes: PROPHYLAXIS forvenous thrombosis, systemic embolization; TREATMENT for venous thrombosis and/or pulmonary embolus.HIGH RISK: Target INR is 2.5-3.5 for patients with mechanical heart valves.While on warfarin.URINALYSIS W/ REFLEX URINE [id number] 18:33:00 Test Item Value Reference Range Comments COLOR (BEAKER) (test ueyb=050) Yellow CLARITY (BEAKER) (test lowj=934) Clear SPECIFIC GRAVITY UA (BEAKER) (test pcnv=437) 1.013 1.001-1.035 PH UA (BEAKER) (test aahc=598) 5.5 5.0-8.0 PROTEIN UA (BEAKER) (test wfjj=470) 10 mg/dL Negative GLUCOSE UA (BEAKER) (test ttzs=886) Negative Negative KETONES UA (BEAKER) (test bnrq=543) Negative Negative BILIRUBIN UA (BEAKER) (test hosd=873) Negative Negative BLOOD UA (BEAKER) (test kouj=405) Negative Negative NITRITE UA (BEAKER) (test blvg=879) Negative Negative LEUKOCYTE ESTERASE UA (BEAKER) (test riye=776) Small Negative UROBILINOGEN UA (BEAKER) (test xpyn=822) 0.2 mg/dL 0.2-1.0 RBC UA (BEAKER) (test hqjb=750) < /HPF WBC UA (BEAKER) (test tolw=750) 4 /HPF MUCUS (BEAKER) (test vazd=2104) Many SQUAMOUS EPITHELIAL (BEAKER) (test mcsj=288) 3 /HPF HYALINE CASTS (BEAKER) (test aaus=230) 13 /LPF SOURCE(BEAKER) (test sijl=5883) CALCIUM, [id number] 06:39:00 Test Item Value Reference Range Comments CALCIUM IONIZED (BEAKER) (test sxpy=471) 1.06 mmol/L 1.12-1.27 PH, BLOOD (BEAKER) (test kkzc=9985) 7.49 [id number] 06:03:00 Test Item Value Reference Range Comments PHOSPHORUS (BEAKER) (test uaxi=080) 2.1 mg/dL 2.3-4.7 [id number] 06:03:00 Test Item Value Reference Range Comments MAGNESIUM (BEAKER) (test xsle=398) 1.7 mg/dL 1.6-2.6 COMPREHENSIVE METABOLIC [id number] 06:03:00 Test Item Value Reference Range Comments TOTAL PROTEIN (BEAKER) 4.6 gm/dL 6.0-8.3 (test swlz=119) ALBUMIN (BEAKER) (test 2.4 g/dL 3.5-5.0 imod=0155) ALKALINE PHOSPHATASE 59 U/L 40-150 (BEAKER) (test doqo=733) BILIRUBIN TOTAL (BEAKER) 1.9 mg/dL 0.2-1.2 (test xmhu=902) SODIUM (BEAKER) (test 137 meq/L 136-145 xivm=497) POTASSIUM (BEAKER) (test 4.1 meq/L 3.5-5.1 evrc=803) CHLORIDE (BEAKER) (test 106 meq/L 98-107 blti=426) CO2 (BEAKER) (test 24 meq/L 22-29 mjse=698) BLOOD UREA NITROGEN 11 mg/dL 7-21 (BEAKER) (test ninn=506) CREATININE (BEAKER) (test 0.65 mg/dL 0.57-1.25 bdmj=755) GLUCOSE RANDOM (BEAKER) 107 mg/dL 70-105 (test rfbk=003) CALCIUM (BEAKER) (test 8.4 mg/dL 8.4-10.2 vtla=954) AST (SGOT) (BEAKER) (test 66 U/L 5-34 cvcy=052) ALT (SGPT) (BEAKER) (test 27 U/L 6-55 wlre=031) EGFR (BEAKER) (test 86 mL/min/1.73 sq m ESTIMATED GFR IS NOT zxml=7632) ACCURATE CREATININE CLEARANCE IN PREDICTING GLOMERULAR FILTRATION RATE. ESTIMATED GFR IS NOT APPLICABLE FOR DIALYSIS PATIENTS. Specimen slightly ictericCBC (HEMOGRAM ONLY)2019-01-11 05:45:00 Test Item Value Reference Range Comments WHITE BLOOD CELL COUNT (BEAKER) (test rxnl=737) 13.7 K/ L 3.5-10.5 RED BLOOD CELL COUNT (BEAKER) (test ejvj=148) 2.71 M/ L 3.93-5.22 HEMOGLOBIN (BEAKER) (test epyl=902) 7.9 GM/DL 11.2-15.7 HEMATOCRIT (BEAKER) (test exbq=971) 24.2 % 34.1-44.9 MEAN CORPUSCULAR VOLUME (BEAKER) (test gmie=771) 89.3 fL 79.4-94.8 MEAN CORPUSCULAR HEMOGLOBIN (BEAKER) (test 29.2 pg 25.6-32.2 onty=740) MEAN CORPUSCULAR HEMOGLOBIN CONC (BEAKER) (test 32.6 GM/DL 32.2-35.5 ognl=994) RED CELL DISTRIBUTION WIDTH (BEAKER) (test 17.6 % 11.7-14.4 tsgt=500) PLATELET COUNT (BEAKER) (test mbmr=769) 140 K/CU MM 150-450 MEAN PLATELET VOLUME (BEAKER) (test upnr=990) 9.3 fL 9.4-12.3 NUCLEATED RED BLOOD CELLS (BEAKER) (test 0 /100 WBC 0-0 dahi=190) PROTHROMBIN [id number] 05:43:00 Test Item Value Reference Range Comments PROTIME (BEAKER) (test mxjp=717) 32.0 seconds 11.7-14.7 INR (BEAKER) (test wrdu=240) 3.1 <=5.9 RECOMMENDED COUMADIN/WARFARIN INR THERAPY RANGESSTANDARD DOSE: 2.0 - 3.0 Includes: PROPHYLAXIS forvenous thrombosis, systemic embolization; TREATMENT for venous thrombosis and/or pulmonary embolus.HIGH RISK: Target INR is 2.5-3.5 for patients with mechanical heart valves.While on warfarin.POCT-GLUCOSE [id number] 18:04:00 Test Item Value Reference Range Comments POC-GLUCOSE METER (BEAKER) 131 mg/dL 70-110 TESTED AT [facility] [address] [facility] (test eeik=8639) [facility] [address] [id number] 13:00:00 Test Item Value Reference Range Comments PARTIAL THROMBOPLASTIN TIME (BEAKER) (test 113.0 seconds 22.5-36.0 adil=159) CBC (HEMOGRAM ONLY)2019-01-10 07:03:00 Test Item Value Reference Range Comments WHITE BLOOD CELL COUNT (BEAKER) (test potb=610) 10.9 K/ L 3.5-10.5 RED BLOOD CELL COUNT (BEAKER) (test oklm=234) 2.13 M/ L 3.93-5.22 HEMOGLOBIN (BEAKER) (test irsb=504) 6.3 GM/DL 11.2-15.7 HEMATOCRIT (BEAKER) (test clva=538) 19.9 % 34.1-44.9 MEAN CORPUSCULAR VOLUME (BEAKER) (test nnif=594) 93.4 fL 79.4-94.8 MEAN CORPUSCULAR HEMOGLOBIN (BEAKER) (test 29.6 pg 25.6-32.2 ahze=708) MEAN CORPUSCULAR HEMOGLOBIN CONC (BEAKER) (test 31.7 GM/DL 32.2-35.5 dwiv=336) RED CELL DISTRIBUTION WIDTH (BEAKER) (test 17.6 % 11.7-14.4 wpnj=572) PLATELET COUNT (BEAKER) (test ivzf=967) 135 K/CU MM 150-450 MEAN PLATELET VOLUME (BEAKER) (test wiim=944) 9.2 fL 9.4-12.3 NUCLEATED RED BLOOD CELLS (BEAKER) (test 0 /100 WBC 0-0 xmqx=945) CALCIUM, [id number] 06:49:00 Test Item Value Reference Range Comments CALCIUM IONIZED (BEAKER) (test qiux=315) 1.10 mmol/L 1.12-1.27 PH, BLOOD (BEAKER) (test twee=3513) 7.41 [id number] 06:16:00 Test Item Value Reference Range Comments PHOSPHORUS (BEAKER) (test tied=324) 2.0 mg/dL 2.3-4.7 [id number] 06:16:00 Test Item Value Reference Range Comments MAGNESIUM (BEAKER) (test npto=216) 1.5 mg/dL 1.6-2.6 BASIC METABOLIC [id number] 06:16:00 Test Item Value Reference Range Comments SODIUM (BEAKER) (test 138 meq/L 136-145 xlxq=700) POTASSIUM (BEAKER) (test 4.2 meq/L 3.5-5.1 xhvo=020) CHLORIDE (BEAKER) (test 109 meq/L 98-107 kadc=133) CO2 (BEAKER) (test 22 meq/L 22-29 khae=284) BLOOD UREA NITROGEN 10 mg/dL 7-21 (BEAKER) (test xjsd=125) CREATININE (BEAKER) (test 0.62 mg/dL 0.57-1.25 wyun=182) GLUCOSE RANDOM (BEAKER) 106 mg/dL 70-105 (test uxlj=055) CALCIUM (BEAKER) (test 8.5 mg/dL 8.4-10.2 omyn=579) EGFR (BEAKER) (test 91 mL/min/1.73 sq m ESTIMATED GFR IS NOT jsji=4187) ACCURATE CREATININE CLEARANCE IN PREDICTING GLOMERULAR FILTRATION RATE. ESTIMATED GFR IS NOT APPLICABLE FOR DIALYSIS PATIENTS. [id number] 06:05:00 Test Item Value Reference Range Comments PARTIAL THROMBOPLASTIN TIME (BEAKER) (test 72.4 seconds 22.5-36.0 qdkw=493) While on warfarin.PROTHROMBIN [id number] 06:04:00 Test Item Value Reference Range Comments PROTIME (BEAKER) (test lrpm=761) 38.1 seconds 11.7-14.7 INR (BEAKER) (test pzoa=171) 3.9 <=5.9 RECOMMENDED COUMADIN/WARFARIN INR THERAPY RANGESSTANDARD DOSE: 2.0 - 3.0 Includes: PROPHYLAXIS forvenous thrombosis, systemic embolization; TREATMENT for venous thrombosis and/or pulmonary embolus.HIGH RISK: Target INR is 2.5-3.5 for patients with mechanical heart valves.While on warfarin.[id number] 03:45 :00 Test Item Value Reference Range Comments PARTIAL THROMBOPLASTIN TIME (BEAKER) (test 173.0 seconds 22.5-36.0 ebph=225) [id number] 20:34:00 Test Item Value Reference Range Comments PARTIAL THROMBOPLASTIN TIME (BEAKER) (test 104.5 seconds 22.5-36.0 pdgw=794) [id number] 17:51:00 Test Item Value Reference Range Comments PROTIME (BEAKER) (test tybm=872) 35.8 seconds 11.7-14.7 INR (BEAKER) (test hgse=502) 3.6 <=5.9 PARTIAL THROMBOPLASTIN TIME (BEAKER) (test 143.0 seconds 22.5-36.0 bblt=268) RECOMMENDED COUMADIN/WARFARIN INR THERAPY RANGESSTANDARD DOSE: 2.0 - 3.0 Includes: PROPHYLAXIS forvenous thrombosis, systemic embolization; TREATMENT for venous thrombosis and/or pulmonary embolus.HIGH RISK: Target INR is 2.5-3.5 for patients with mechanical heart valves.[id number] 08:23:00 Test Item Value Reference Range Comments PARTIAL THROMBOPLASTIN TIME (BEAKER) (test 89.3 seconds 22.5-36.0 ernt=026) CBC (HEMOGRAM ONLY)2019-01-09 08:18:00 Test Item Value Reference Range Comments WHITE BLOOD CELL COUNT (BEAKER) (test wycr=180) 9.7 K/ L 3.5-10.5 RED BLOOD CELL COUNT (BEAKER) (test apzo=496) 2.54 M/ L 3.93-5.22 HEMOGLOBIN (BEAKER) (test gtjq=408) 7.3 GM/DL 11.2-15.7 HEMATOCRIT (BEAKER) (test pwsh=088) 23.7 % 34.1-44.9 MEAN CORPUSCULAR VOLUME (BEAKER) (test aayn=406) 93.3 fL 79.4-94.8 MEAN CORPUSCULAR HEMOGLOBIN (BEAKER) (test 28.7 pg 25.6-32.2 wcom=270) MEAN CORPUSCULAR HEMOGLOBIN CONC (BEAKER) (test 30.8 GM/DL 32.2-35.5 rplj=430) RED CELL DISTRIBUTION WIDTH (BEAKER) (test 17.6 % 11.7-14.4 njes=860) PLATELET COUNT (BEAKER) (test rpaa=620) 137 K/CU MM 150-450 MEAN PLATELET VOLUME (BEAKER) (test ubbs=565) 8.9 fL 9.4-12.3 NUCLEATED RED BLOOD CELLS (BEAKER) (test 0 /100 WBC 0-0 rsbg=223) [id number] 06:24:00 Test Item Value Reference Range Comments PHOSPHORUS (BEAKER) (test ikkz=392) 1.9 mg/dL 2.3-4.7 [id number] 06:24:00 Test Item Value Reference Range Comments MAGNESIUM (BEAKER) (test qqia=298) 1.7 mg/dL 1.6-2.6 BASIC METABOLIC [id number] 06:24:00 Test Item Value Reference Range Comments SODIUM (BEAKER) (test 137 meq/L 136-145 gkqf=724) POTASSIUM (BEAKER) (test 3.9 meq/L 3.5-5.1 ncsq=341) CHLORIDE (BEAKER) (test 108 meq/L 98-107 rvby=323) CO2 (BEAKER) (test 25 meq/L 22-29 ossa=827) BLOOD UREA NITROGEN 12 mg/dL 7-21 (BEAKER) (test xdtm=159) CREATININE (BEAKER) (test 0.74 mg/dL 0.57-1.25 aqvw=407) GLUCOSE RANDOM (BEAKER) 103 mg/dL 70-105 (test ibji=628) CALCIUM (BEAKER) (test 8.5 mg/dL 8.4-10.2 kgur=929) EGFR (BEAKER) (test 74 mL/min/1.73 sq m ESTIMATED GFR IS NOT fdrs=6473) ACCURATE CREATININE CLEARANCE IN PREDICTING GLOMERULAR FILTRATION RATE. ESTIMATED GFR IS NOT APPLICABLE FOR DIALYSIS PATIENTS. HEPATIC FUNCTION [id number] 06:24:00 Test Item Value Reference Range Comments TOTAL PROTEIN (BEAKER) (test xaki=655) 5.1 gm/dL 6.0-8.3 ALBUMIN (BEAKER) (test rbkd=0567) 2.7 g/dL 3.5-5.0 BILIRUBIN TOTAL (BEAKER) (test ssgs=986) 1.0 mg/dL 0.2-1.2 BILIRUBIN DIRECT (BEAKER) (test zbwt=998) 0.6 mg/dL 0.1-0.5 ALKALINE PHOSPHATASE (BEAKER) (test zmvb=451) 60 U/L 40-150 AST (SGOT) (BEAKER) (test mdep=476) 34 U/L 5-34 ALT (SGPT) (BEAKER) (test wmue=526) 17 U/L 6-55 [id number] 06:05:00 Test Item Value Reference Range Comments PARTIAL THROMBOPLASTIN TIME (BEAKER) (test 184.0 seconds 22.5-36.0 makb=192) While on warfarin.CALCIUM, [id number] 05:56:00 Test Item Value Reference Range Comments CALCIUM IONIZED (BEAKER) (test kmfb=107) 1.04 mmol/L 1.12-1.27 PH, BLOOD (BEAKER) (test yzun=7601) 7.42 PROTHROMBIN [id number] 05:38:00 Test Item Value Reference Range Comments PROTIME (BEAKER) (test axrh=998) 29.6 seconds 11.7-14.7 INR (BEAKER) (test kfsu=489) 2.8 <=5.9 RECOMMENDED COUMADIN/WARFARIN INR THERAPY RANGESSTANDARD DOSE: 2.0 - 3.0 Includes: PROPHYLAXIS forvenous thrombosis, systemic embolization; TREATMENT for venous thrombosis and/or pulmonary embolus.HIGH RISK: Target INR is 2.5-3.5 for patients with mechanical heart valves.While on warfarin.[id number] 22:24 :00 Test Item Value Reference Range Comments PARTIAL THROMBOPLASTIN TIME (BEAKER) (test 56.5 seconds 22.5-36.0 yymh=737) OCCULT BLOOD, [id number] 21:44:00 Test Item Value Reference Range Comments FECAL OCCULT BLOOD (BEAKER) (test flgl=233) Positive Negative [id number] 14:55:00 Test Item Value Reference Range Comments PARTIAL THROMBOPLASTIN TIME (BEAKER) (test 86.5 seconds 22.5-36.0 bwkt=138) [id number] 08:42:00 Test Item Value Reference Range Comments PARTIAL THROMBOPLASTIN TIME (BEAKER) (test 39.0 seconds 22.5-36.0 yjqx=145) CALCIUM, [id number] 06:29:00 Test Item Value Reference Range Comments CALCIUM IONIZED (BEAKER) (test ixiw=845) 1.07 mmol/L 1.12-1.27 PH, BLOOD (BEAKER) (test lhsb=2778) 7.40 PROTHROMBIN [id number] 05:30:00 Test Item Value Reference Range Comments PROTIME (BEAKER) (test xrrf=519) 22.6 seconds 11.7-14.7 INR (BEAKER) (test ytmr=416) 2.0 <=5.9 RECOMMENDED COUMADIN/WARFARIN INR THERAPY RANGESSTANDARD DOSE: 2.0 - 3.0 Includes: PROPHYLAXIS forvenous thrombosis, systemic embolization; TREATMENT for venous thrombosis and/or pulmonary embolus.HIGH RISK: Target INR is 2.5-3.5 for patients with mechanical heart valves.While on warfarin.[id number] 05:28:00 Test Item Value Reference Range Comments PHOSPHORUS (BEAKER) (test kvgv=698) 1.9 mg/dL 2.3-4.7 [id number] 05:28:00 Test Item Value Reference Range Comments MAGNESIUM (BEAKER) (test kuqf=806) 1.6 mg/dL 1.6-2.6 BASIC METABOLIC [id number] 05:28:00 Test Item Value Reference Range Comments SODIUM (BEAKER) (test 140 meq/L 136-145 zkfi=829) POTASSIUM (BEAKER) (test 3.4 meq/L 3.5-5.1 epjl=332) CHLORIDE (BEAKER) (test 109 meq/L 98-107 cmjv=367) CO2 (BEAKER) (test 23 meq/L 22-29 pszv=831) BLOOD UREA NITROGEN 15 mg/dL 7-21 (BEAKER) (test cpqx=114) CREATININE (BEAKER) (test 0.83 mg/dL 0.57-1.25 ffij=261) GLUCOSE RANDOM (BEAKER) 100 mg/dL 70-105 (test bvrk=117) CALCIUM (BEAKER) (test 8.2 mg/dL 8.4-10.2 niia=236) EGFR (BEAKER) (test 65 mL/min/1.73 sq m ESTIMATED GFR IS NOT uwpo=1122) ACCURATE CREATININE CLEARANCE IN PREDICTING GLOMERULAR FILTRATION RATE. ESTIMATED GFR IS NOT APPLICABLE FOR DIALYSIS PATIENTS. HEPATIC FUNCTION [id number] 05:28:00 Test Item Value Reference Range Comments TOTAL PROTEIN (BEAKER) (test zwnf=206) 4.8 gm/dL 6.0-8.3 ALBUMIN (BEAKER) (test uvnd=8442) 2.5 g/dL 3.5-5.0 BILIRUBIN TOTAL (BEAKER) (test wfqr=231) 1.0 mg/dL 0.2-1.2 BILIRUBIN DIRECT (BEAKER) (test bwqe=286) 0.5 mg/dL 0.1-0.5 ALKALINE PHOSPHATASE (BEAKER) (test tsdc=296) 58 U/L 40-150 AST (SGOT) (BEAKER) (test vkoo=103) 34 U/L 5-34 ALT (SGPT) (BEAKER) (test lgui=683) 19 U/L 6-55 CBC W/PLT COUNT & AUTO [id number] 05:04:00 Test Item Value Reference Range Comments WHITE BLOOD CELL COUNT (BEAKER) (test wiqx=744) 9.6 K/ L 3.5-10.5 RED BLOOD CELL COUNT (BEAKER) (test muaa=758) 2.86 M/ L 3.93-5.22 HEMOGLOBIN (BEAKER) (test rzdb=465) 8.3 GM/DL 11.2-15.7 HEMATOCRIT (BEAKER) (test iwvm=681) 26.4 % 34.1-44.9 MEAN CORPUSCULAR VOLUME (BEAKER) (test gxqo=690) 92.3 fL 79.4-94.8 MEAN CORPUSCULAR HEMOGLOBIN (BEAKER) (test 29.0 pg 25.6-32.2 znln=826) MEAN CORPUSCULAR HEMOGLOBIN CONC (BEAKER) (test 31.4 GM/DL 32.2-35.5 pjin=732) RED CELL DISTRIBUTION WIDTH (BEAKER) (test 17.6 % 11.7-14.4 lbjm=264) PLATELET COUNT (BEAKER) (test fhlw=310) 128 K/CU MM 150-450 MEAN PLATELET VOLUME (BEAKER) (test ahrn=531) 9.1 fL 9.4-12.3 NUCLEATED RED BLOOD CELLS (BEAKER) (test 0 /100 WBC 0-0 cjcc=508) NEUTROPHILS RELATIVE PERCENT (BEAKER) (test 79 % wwvl=646) LYMPHOCYTES RELATIVE PERCENT (BEAKER) (test 10 % slgb=694) MONOCYTES RELATIVE PERCENT (BEAKER) (test 10 % fuos=776) EOSINOPHILS RELATIVE PERCENT (BEAKER) (test 1 % ycoe=235) BASOPHILS RELATIVE PERCENT (BEAKER) (test 0 % eghx=043) NEUTROPHILS ABSOLUTE COUNT (BEAKER) (test 7.50 K/ L 1.56-6.13 vsfc=846) LYMPHOCYTES ABSOLUTE COUNT (BEAKER) (test 0.91 K/ L 1.18-3.74 qtwk=002) MONOCYTES ABSOLUTE COUNT (BEAKER) (test 0.94 K/ L 0.24-0.36 kymm=061) EOSINOPHILS ABSOLUTE COUNT (BEAKER) (test 0.12 K/ L 0.04-0.36 cayg=400) BASOPHILS ABSOLUTE COUNT (BEAKER) (test 0.02 K/ L 0.01-0.08 ivwy=370) IMMATURE GRANULOCYTES-RELATIVE PERCENT (BEAKER) 1 % 0-1 (test hjog=3934) CBC (HEMOGRAM ONLY)2019-01-08 05:04:00 Test Item Value Reference Range Comments WHITE BLOOD CELL COUNT (BEAKER) (test xcbq=586) 9.6 K/ L 3.5-10.5 RED BLOOD CELL COUNT (BEAKER) (test ypgy=809) 2.86 M/ L 3.93-5.22 HEMOGLOBIN (BEAKER) (test lqxp=032) 8.3 GM/DL 11.2-15.7 HEMATOCRIT (BEAKER) (test xxrs=037) 26.4 % 34.1-44.9 MEAN CORPUSCULAR VOLUME (BEAKER) (test kbvn=506) 92.3 fL 79.4-94.8 MEAN CORPUSCULAR HEMOGLOBIN (BEAKER) (test 29.0 pg 25.6-32.2 zkvk=359) MEAN CORPUSCULAR HEMOGLOBIN CONC (BEAKER) (test 31.4 GM/DL 32.2-35.5 lgnn=120) RED CELL DISTRIBUTION WIDTH (BEAKER) (test 17.6 % 11.7-14.4 rpmx=302) PLATELET COUNT (BEAKER) (test crzw=837) 128 K/CU MM 150-450 MEAN PLATELET VOLUME (BEAKER) (test rhmx=311) 9.1 fL 9.4-12.3 NUCLEATED RED BLOOD CELLS (BEAKER) (test 0 /100 WBC 0-0 ftbo=429) [id number] 01:04:00 Test Item Value Reference Range Comments PARTIAL THROMBOPLASTIN TIME (BEAKER) (test 76.6 seconds 22.5-36.0 jgba=921) [id number] 22:12:00 Test Item Value Reference Range Comments PARTIAL THROMBOPLASTIN TIME (BEAKER) (test 145.3 seconds 22.5-36.0 vmyq=607) [id number] 13:31:00 Test Item Value Reference Range Comments PARTIAL THROMBOPLASTIN TIME (BEAKER) (test 37.2 seconds 22.5-36.0 ivcg=986) Prior to initiating heparinWhile on warfarin.PROTHROMBIN [id number] 13: 30:00 Test Item Value Reference Range Comments PROTIME (BEAKER) (test utyp=788) 22.1 seconds 11.7-14.7 INR (BEAKER) (test gxsu=685) 1.9 <=5.9 RECOMMENDED COUMADIN/WARFARIN INR THERAPY RANGESSTANDARD DOSE: 2.0 - 3.0 Includes: PROPHYLAXIS forvenous thrombosis, systemic embolization; TREATMENT for venous thrombosis and/or pulmonary embolus.HIGH RISK: Target INR is 2.5-3.5 for patients with mechanical heart valves.Prior to initiating heparinWhile on warfarin.PLATELET [id number] 13:18:00 Test Item Value Reference Range Comments PLATELET COUNT (BEAKER) (test trmp=353) 151 K/CU MM 150-450 [id number] 07:12:00 Test Item Value Reference Range Comments PHOSPHORUS (BEAKER) (test xppp=286) 2.8 mg/dL 2.3-4.7 [id number] 07:12:00 Test Item Value Reference Range Comments MAGNESIUM (BEAKER) (test tjnm=354) 1.6 mg/dL 1.6-2.6 BASIC METABOLIC [id number] 07:12:00 Test Item Value Reference Range Comments SODIUM (BEAKER) (test 138 meq/L 136-145 arpa=863) POTASSIUM (BEAKER) (test 4.0 meq/L 3.5-5.1 frua=240) CHLORIDE (BEAKER) (test 108 meq/L 98-107 dgcb=484) CO2 (BEAKER) (test 21 meq/L 22-29 zoeu=068) BLOOD UREA NITROGEN 12 mg/dL 7-21 (BEAKER) (test coso=082) CREATININE (BEAKER) (test 0.80 mg/dL 0.57-1.25 imoa=476) GLUCOSE RANDOM (BEAKER) 124 mg/dL 70-105 (test hrzo=080) CALCIUM (BEAKER) (test 8.5 mg/dL 8.4-10.2 bmsy=912) EGFR (BEAKER) (test 68 mL/min/1.73 sq m ESTIMATED GFR IS NOT ctim=3102) ACCURATE CREATININE CLEARANCE IN PREDICTING GLOMERULAR FILTRATION RATE. ESTIMATED GFR IS NOT APPLICABLE FOR DIALYSIS PATIENTS. HEPATIC FUNCTION [id number] 07:12:00 Test Item Value Reference Range Comments TOTAL PROTEIN (BEAKER) (test uaiy=635) 5.5 gm/dL 6.0-8.3 ALBUMIN (BEAKER) (test yagr=8631) 2.9 g/dL 3.5-5.0 BILIRUBIN TOTAL (BEAKER) (test zbea=459) 1.1 mg/dL 0.2-1.2 BILIRUBIN DIRECT (BEAKER) (test semr=681) 0.6 mg/dL 0.1-0.5 ALKALINE PHOSPHATASE (BEAKER) (test dosd=799) 73 U/L 40-150 AST (SGOT) (BEAKER) (test vuzw=572) 37 U/L 5-34 ALT (SGPT) (BEAKER) (test ftuq=083) 22 U/L 6-55 CALCIUM, [id number] 07:12:00 Test Item Value Reference Range Comments CALCIUM IONIZED (BEAKER) (test xibx=662) 1.05 mmol/L 1.12-1.27 PH, BLOOD (BEAKER) (test yagp=7883) 7.39 CBC W/PLT COUNT & AUTO [id number] 06:47:00 Test Item Value Reference Range Comments WHITE BLOOD CELL COUNT (BEAKER) (test lcma=058) 8.1 K/ L 3.5-10.5 RED BLOOD CELL COUNT (BEAKER) (test swyi=973) 3.33 M/ L 3.93-5.22 HEMOGLOBIN (BEAKER) (test wllk=345) 9.7 GM/DL 11.2-15.7 HEMATOCRIT (BEAKER) (test xbrh=271) 30.5 % 34.1-44.9 MEAN CORPUSCULAR VOLUME (BEAKER) (test hknj=408) 91.6 fL 79.4-94.8 MEAN CORPUSCULAR HEMOGLOBIN (BEAKER) (test 29.1 pg 25.6-32.2 dakl=637) MEAN CORPUSCULAR HEMOGLOBIN CONC (BEAKER) (test 31.8 GM/DL 32.2-35.5 fxiv=256) RED CELL DISTRIBUTION WIDTH (BEAKER) (test 17.9 % 11.7-14.4 opkz=351) PLATELET COUNT (BEAKER) (test kaul=642) 133 K/CU MM 150-450 MEAN PLATELET VOLUME (BEAKER) (test brmx=728) 9.6 fL 9.4-12.3 NUCLEATED RED BLOOD CELLS (BEAKER) (test 0 /100 WBC 0-0 tuig=837) NEUTROPHILS RELATIVE PERCENT (BEAKER) (test 90 % epdm=724) LYMPHOCYTES RELATIVE PERCENT (BEAKER) (test 6 % fwau=058) MONOCYTES RELATIVE PERCENT (BEAKER) (test 3 % lbrp=677) EOSINOPHILS RELATIVE PERCENT (BEAKER) (test 0 % jrij=903) BASOPHILS RELATIVE PERCENT (BEAKER) (test 0 % tkvn=627) NEUTROPHILS ABSOLUTE COUNT (BEAKER) (test 7.35 K/ L 1.56-6.13 wlih=693) LYMPHOCYTES ABSOLUTE COUNT (BEAKER) (test 0.50 K/ L 1.18-3.74 ckzs=598) MONOCYTES ABSOLUTE COUNT (BEAKER) (test 0.20 K/ L 0.24-0.36 lwbd=992) EOSINOPHILS ABSOLUTE COUNT (BEAKER) (test 0.00 K/ L 0.04-0.36 pprx=487) BASOPHILS ABSOLUTE COUNT (BEAKER) (test 0.01 K/ L 0.01-0.08 ocft=055) IMMATURE GRANULOCYTES-RELATIVE PERCENT (BEAKER) 1 % 0-1 (test qdlq=0008) [id number] 22:55:00 Test Item Value Reference Range Comments POTASSIUM (BEAKER) (test xjjr=996) 3.3 meq/L 3.5-5.1 HEMOGLOBIN AND [id number] 22:53:00 Test Item Value Reference Range Comments HEMOGLOBIN (BEAKER) (test rbbk=389) 9.7 GM/DL 11.2-15.7 HEMATOCRIT (BEAKER) (test xrys=662) 30.6 % 34.1-44.9 TISSUE [id number] 17:42:00Surgical Pathology Report Case: [id number] Authorizing Provider: Nancy Mckenzie [facility] OrderingLocation: [address] Received: 2018 0854 Service Pathologist: Elieser Hogue MD Specimen: Esophagus, Ulcer upper esophagus bx A. ESOPHAGUS, UPPER/MID, BIOPSY OF ULCER:- ACTIVE ESOPHAGITIS WITH ULCERATION- IMMUNOSTAINS FOR HSV I, HSV II AND CMV, NEGATIVE FOR VIRAL INCLUSIONS- GMS STAIN SHOWS FEW MARIA EUGENIA-LIKE FUNGAL ELEMENTS ON THE SURFACE, SUGGESTIVE OF COLONIZATION- NEGATIVE FOR DYSPLASIA OR CARCINOMA Signing Pathologist Direct Phone Line: Preliminary resultelectronically signed by Julián Hernandez MD on 2018 at 3:55 [id number], [id number], [id number] X2, [id number] GI bleedingUlcer upper esophagus biopsy The specimen is received in a formalin-filled container labeled with the patient's information and labeled "ulcer upper esophagus biopsy" and consists of a 0.2 cm fragment of off-white soft tissue entirely submitted in A1. CG/ew Microscopic examination is performed and the findings are incorporated in the diagnostic line. The interpretation of this case included the use of immunohistochemistry or special stains. Immunohistochemistry technical testing was performed at [facility], Pathology Laboratory where it was developed and its performance characteristics were determined. It has not been cleared or approved by the [place]. Food and Drug Administration. The FDA has determined that such clearance or approval is not necessary. The test is used for clinical purposes. It should not be regarded as investigational or for research. This laboratory is certified under the Clinical Laboratory Improvement Amendments of 1988 (CLIA-88) as qualified to perform high complexity clinical laboratory testing.CBC W/PLT COUNT & AUTO [id number] 06:30:00 Test Item Value Reference Range Comments WHITE BLOOD CELL COUNT (BEAKER) (test ognl=058) 6.6 K/ L 3.5-10.5 RED BLOOD CELL COUNT (BEAKER) (test jvwe=926) 2.16 M/ L 3.93-5.22 HEMOGLOBIN (BEAKER) (test ujgw=696) 6.5 GM/DL 11.2-15.7 HEMATOCRIT (BEAKER) (test mrhx=083) 20.7 % 34.1-44.9 MEAN CORPUSCULAR VOLUME (BEAKER) (test zuah=104) 95.8 fL 79.4-94.8 MEAN CORPUSCULAR HEMOGLOBIN (BEAKER) (test 30.1 pg 25.6-32.2 gwqx=152) MEAN CORPUSCULAR HEMOGLOBIN CONC (BEAKER) (test 31.4 GM/DL 32.2-35.5 cpxe=405) RED CELL DISTRIBUTION WIDTH (BEAKER) (test 17.8 % 11.7-14.4 cxor=311) PLATELET COUNT (BEAKER) (test rpsw=299) 119 K/CU MM 150-450 MEAN PLATELET VOLUME (BEAKER) (test vxgr=546) 9.7 fL 9.4-12.3 NUCLEATED RED BLOOD CELLS (BEAKER) (test 0 /100 WBC 0-0 qtmd=632) NEUTROPHILS RELATIVE PERCENT (BEAKER) (test 70 % fdue=813) LYMPHOCYTES RELATIVE PERCENT (BEAKER) (test 16 % nufg=816) MONOCYTES RELATIVE PERCENT (BEAKER) (test 11 % nhzj=715) EOSINOPHILS RELATIVE PERCENT (BEAKER) (test 2 % wisk=962) BASOPHILS RELATIVE PERCENT (BEAKER) (test 0 % advg=021) NEUTROPHILS ABSOLUTE COUNT (BEAKER) (test 4.63 K/ L 1.56-6.13 gnch=883) LYMPHOCYTES ABSOLUTE COUNT (BEAKER) (test 1.08 K/ L 1.18-3.74 xdbu=475) MONOCYTES ABSOLUTE COUNT (BEAKER) (test 0.72 K/ L 0.24-0.36 pfly=225) EOSINOPHILS ABSOLUTE COUNT (BEAKER) (test 0.16 K/ L 0.04-0.36 bodh=038) BASOPHILS ABSOLUTE COUNT (BEAKER) (test 0.02 K/ L 0.01-0.08 qycl=139) IMMATURE GRANULOCYTES-RELATIVE PERCENT (BEAKER) 1 % 0-1 (test jxsr=3634) [id number] 05:49:00 Test Item Value Reference Range Comments PHOSPHORUS (BEAKER) (test nfzh=839) 2.4 mg/dL 2.3-4.7 [id number] 05:49:00 Test Item Value Reference Range Comments MAGNESIUM (BEAKER) (test ieil=604) 1.9 mg/dL 1.6-2.6 BASIC METABOLIC [id number] 05:49:00 Test Item Value Reference Range Comments SODIUM (BEAKER) (test 140 meq/L 136-145 ctpw=484) POTASSIUM (BEAKER) (test 2.9 meq/L 3.5-5.1 gsvn=686) CHLORIDE (BEAKER) (test 107 meq/L 98-107 lnph=441) CO2 (BEAKER) (test 26 meq/L 22-29 nucv=100) BLOOD UREA NITROGEN 10 mg/dL 7-21 (BEAKER) (test lxkw=467) CREATININE (BEAKER) (test 0.72 mg/dL 0.57-1.25 ovbi=855) GLUCOSE RANDOM (BEAKER) 89 mg/dL 70-105 (test svmf=904) CALCIUM (BEAKER) (test 8.3 mg/dL 8.4-10.2 mnem=063) EGFR (BEAKER) (test 77 mL/min/1.73 sq m ESTIMATED GFR IS NOT fdja=3240) ACCURATE CREATININE CLEARANCE IN PREDICTING GLOMERULAR FILTRATION RATE. ESTIMATED GFR IS NOT APPLICABLE FOR DIALYSIS PATIENTS. CALCIUM, [id number] 05:45:00 Test Item Value Reference Range Comments CALCIUM IONIZED (BEAKER) (test xqdi=493) 0.97 mmol/L 1.12-1.27 PH, BLOOD (BEAKER) (test qusy=0147) 7.46 [id number] 05:40:00 Test Item Value Reference Range Comments PARTIAL THROMBOPLASTIN TIME (BEAKER) (test 79.2 seconds 22.5-36.0 rqbb=582) [id number] 23:40:00 Test Item Value Reference Range Comments PARTIAL THROMBOPLASTIN TIME (BEAKER) (test 67.6 seconds 22.5-36.0 vjvn=568) CALCIUM, [id number] 06:37:00 Test Item Value Reference Range Comments CALCIUM IONIZED (BEAKER) (test fqbh=550) 1.02 mmol/L 1.12-1.27 PH, BLOOD (BEAKER) (test mtnu=2757) 7.54 [id number] 05:52:00 Test Item Value Reference Range Comments PHOSPHORUS (BEAKER) (test yhqc=310) 2.2 mg/dL 2.3-4.7 COMPREHENSIVE METABOLIC [id number] 05:52:00 Test Item Value Reference Range Comments TOTAL PROTEIN (BEAKER) 4.9 gm/dL 6.0-8.3 (test sjud=283) ALBUMIN (BEAKER) (test 2.6 g/dL 3.5-5.0 usrh=7104) ALKALINE PHOSPHATASE 64 U/L 40-150 (BEAKER) (test tqhx=404) BILIRUBIN TOTAL (BEAKER) 0.9 mg/dL 0.2-1.2 (test bcdj=768) SODIUM (BEAKER) (test 144 meq/L 136-145 eahd=282) POTASSIUM (BEAKER) (test 3.2 meq/L 3.5-5.1 ssxk=981) CHLORIDE (BEAKER) (test 113 meq/L 98-107 isoe=117) CO2 (BEAKER) (test 24 meq/L 22-29 uama=523) BLOOD UREA NITROGEN 11 mg/dL 7-21 (BEAKER) (test jgae=767) CREATININE (BEAKER) (test 0.74 mg/dL 0.57-1.25 byxl=259) GLUCOSE RANDOM (BEAKER) 93 mg/dL 70-105 (test lwey=338) CALCIUM (BEAKER) (test 8.4 mg/dL 8.4-10.2 zfcp=829) AST (SGOT) (BEAKER) (test 22 U/L 5-34 effc=690) ALT (SGPT) (BEAKER) (test 22 U/L 6-55 adug=885) EGFR (BEAKER) (test 74 mL/min/1.73 sq m ESTIMATED GFR IS NOT lmst=6929) ACCURATE CREATININE CLEARANCE IN PREDICTING GLOMERULAR FILTRATION RATE. ESTIMATED GFR IS NOT APPLICABLE FOR DIALYSIS PATIENTS. CBC W/PLT COUNT & AUTO [id number] 05:24:00 Test Item Value Reference Range Comments WHITE BLOOD CELL COUNT (BEAKER) (test fggf=792) 8.5 K/ L 3.5-10.5 RED BLOOD CELL COUNT (BEAKER) (test dxjt=626) 2.36 M/ L 3.93-5.22 HEMOGLOBIN (BEAKER) (test fbrt=335) 7.0 GM/DL 11.2-15.7 HEMATOCRIT (BEAKER) (test rvyj=127) 23.0 % 34.1-44.9 MEAN CORPUSCULAR VOLUME (BEAKER) (test tmcg=342) 97.5 fL 79.4-94.8 MEAN CORPUSCULAR HEMOGLOBIN (BEAKER) (test 29.7 pg 25.6-32.2 kzfq=997) MEAN CORPUSCULAR HEMOGLOBIN CONC (BEAKER) (test 30.4 GM/DL 32.2-35.5 punb=825) RED CELL DISTRIBUTION WIDTH (BEAKER) (test 18.6 % 11.7-14.4 apma=088) PLATELET COUNT (BEAKER) (test ifqn=838) 126 K/CU MM 150-450 MEAN PLATELET VOLUME (BEAKER) (test juwt=073) 9.1 fL 9.4-12.3 NUCLEATED RED BLOOD CELLS (BEAKER) (test 0 /100 WBC 0-0 wdhx=786) NEUTROPHILS RELATIVE PERCENT (BEAKER) (test 72 % ufke=145) LYMPHOCYTES RELATIVE PERCENT (BEAKER) (test 13 % ikaa=828) MONOCYTES RELATIVE PERCENT (BEAKER) (test 12 % qhac=325) EOSINOPHILS RELATIVE PERCENT (BEAKER) (test 3 % oboo=769) BASOPHILS RELATIVE PERCENT (BEAKER) (test 1 % kbix=190) NEUTROPHILS ABSOLUTE COUNT (BEAKER) (test 6.05 K/ L 1.56-6.13 yqdh=651) LYMPHOCYTES ABSOLUTE COUNT (BEAKER) (test 1.09 K/ L 1.18-3.74 dmpz=741) MONOCYTES ABSOLUTE COUNT (BEAKER) (test 1.01 K/ L 0.24-0.36 uske=309) EOSINOPHILS ABSOLUTE COUNT (BEAKER) (test 0.22 K/ L 0.04-0.36 digf=028) BASOPHILS ABSOLUTE COUNT (BEAKER) (test 0.04 K/ L 0.01-0.08 zrfu=480) IMMATURE GRANULOCYTES-RELATIVE PERCENT (BEAKER) 1 % 0-1 (test ship=4933) [id number] 21:33:00 Test Item Value Reference Range Comments PARTIAL THROMBOPLASTIN TIME (BEAKER) (test 78.3 seconds 22.5-36.0 gfgz=721) COMPREHENSIVE METABOLIC [id number] 19:41:00 Test Item Value Reference Range Comments TOTAL PROTEIN (BEAKER) 5.1 gm/dL 6.0-8.3 (test aelb=871) ALBUMIN (BEAKER) (test 2.8 g/dL 3.5-5.0 xuva=4931) ALKALINE PHOSPHATASE 69 U/L 40-150 (BEAKER) (test cuis=390) BILIRUBIN TOTAL (BEAKER) 0.9 mg/dL 0.2-1.2 (test vinp=919) SODIUM (BEAKER) (test 146 meq/L 136-145 mgmb=239) POTASSIUM (BEAKER) (test 2.6 meq/L 3.5-5.1 kiob=360) CHLORIDE (BEAKER) (test 112 meq/L 98-107 yceh=121) CO2 (BEAKER) (test 26 meq/L 22-29 qaoz=963) BLOOD UREA NITROGEN 12 mg/dL 7-21 (BEAKER) (test khun=151) CREATININE (BEAKER) (test 0.76 mg/dL 0.57-1.25 dlbt=414) GLUCOSE RANDOM (BEAKER) 103 mg/dL 70-105 (test aiep=798) CALCIUM (BEAKER) (test 8.5 mg/dL 8.4-10.2 lyxq=247) AST (SGOT) (BEAKER) (test 25 U/L 5-34 thzl=177) ALT (SGPT) (BEAKER) (test 24 U/L 6-55 euby=846) EGFR (BEAKER) (test 72 mL/min/1.73 sq m ESTIMATED GFR IS NOT oqpc=5773) ACCURATE CREATININE CLEARANCE IN PREDICTING GLOMERULAR FILTRATION RATE. ESTIMATED GFR IS NOT APPLICABLE FOR DIALYSIS PATIENTS. [id number] 19:30:00 Test Item Value Reference Range Comments PARTIAL THROMBOPLASTIN TIME (BEAKER) (test 136.3 seconds 22.5-36.0 iqtn=951) PROTHROMBIN [id number] 19:24:00 Test Item Value Reference Range Comments PROTIME (BEAKER) (test shei=654) 19.9 seconds 11.7-14.7 INR (BEAKER) (test knrj=795) 1.7 <=5.9 RECOMMENDED COUMADIN/WARFARIN INR THERAPY RANGESSTANDARD DOSE: 2.0 - 3.0 Includes: PROPHYLAXIS forvenous thrombosis, systemic embolization; TREATMENT for venous thrombosis and/or pulmonary embolus.HIGH RISK: Target INR is 2.5-3.5 for patients with mechanical heart valves.[id number] 10:31:00 Test Item Value Reference Range Comments PARTIAL THROMBOPLASTIN TIME (BEAKER) (test 80.2 seconds 22.5-36.0 qnlu=221) [id number] 04:22:00 Test Item Value Reference Range Comments LIPASE (BEAKER) (test ucdo=128) 104 U/L 8-78 [id number] 04:04:00 Test Item Value Reference Range Comments PARTIAL THROMBOPLASTIN TIME (BEAKER) (test 99.2 seconds 22.5-36.0 xxod=706) [id number] 02:25:00 Test Item Value Reference Range Comments PARTIAL THROMBOPLASTIN TIME (BEAKER) (test 166.1 seconds 22.5-36.0 xgnd=019) [id number] 20:50:00 Test Item Value Reference Range Comments PARTIAL THROMBOPLASTIN TIME (BEAKER) (test 64.3 seconds 22.5-36.0 ydwo=561) RAD, CHEST, 1 VIEW, NON [id number] 19:00:00Reason for exam:->Post Power PICC insertion for tip verification.Should this be performed at the bedside?-&gt ;YesFINAL REPORT History: PICC line insertion. Comparison: 12/29/2018 Findings: Asingle view of the chest is submitted. A right PICC line tip overlies the SVC. The cardiac silhouette is within normal limits for size. There is atherosclerotic calcification of the aorta. 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 Thereis a similar appearance of central pulmonary vascular prominence and diffuse interstitial thickening, which could reflect some combination of interstitial edema and interstitial scarring. Blunting of the left costophrenic sulcus may reflect pleural thickening or a trace effusion. There is no pneumothorax or acute bony abnormality. Signed: Andrew Corral MDReport Verified Date/Time: 01/03/2019 19:00:30 Reading Location: [address] Reading Room U/S, ABDOMINAL, [id number] 16:20:00Abdomen limited area? Add comment if clarification is needed.->Right upper quadrantReason for exam:->abdominal painFINAL REPORT ULTRASOUND RIGHT UPPER QUADRANT OF THE ABDOMEN HISTORY: Abdominal pain COMPARISON: Ultrasound abdomen right upper quadrant from 12/31/2018 TECHNIQUE: Real-time ultrasound of the right upper quadrant of the abdomen was performed. FINDINGS: The liver is normal in size. Hepatic length is 12.6 cm. Mild diffuse increase in hepatic echogenicity, which may reflect fattyinfiltration. No mass lesion is visualized. The gallbladder [...] infiltration of the liver. Signed: James Dickens MDReport Verified Date/Time: 01/03/2019 16:20:42 Reading Location: [address] Reading Room [id number] 13:12:00 Test Item Value Reference Range Comments PARTIAL THROMBOPLASTIN TIME (BEAKER) (test 76.0 seconds 22.5-36.0 ynjm=238) [id number] 06:32:00 Test Item Value Reference Range Comments PHOSPHORUS (BEAKER) (test xxpi=889) 2.1 mg/dL 2.3-4.7 [id number] 06:32:00 Test Item Value Reference Range Comments MAGNESIUM (BEAKER) (test rqkz=735) 1.6 mg/dL 1.6-2.6 BASIC METABOLIC [id number] 06:32:00 Test Item Value Reference Range Comments SODIUM (BEAKER) (test 149 meq/L 136-145 yyyn=972) POTASSIUM (BEAKER) (test 3.3 meq/L 3.5-5.1 qwbc=047) CHLORIDE (BEAKER) (test 118 meq/L 98-107 dscu=482) CO2 (BEAKER) (test 23 meq/L 22-29 fewx=452) BLOOD UREA NITROGEN 17 mg/dL 7-21 (BEAKER) (test jvfz=270) CREATININE (BEAKER) (test 0.91 mg/dL 0.57-1.25 cqrn=293) GLUCOSE RANDOM (BEAKER) 120 mg/dL 70-105 (test juos=800) CALCIUM (BEAKER) (test 8.8 mg/dL 8.4-10.2 vxsb=435) EGFR (BEAKER) (test 59 mL/min/1.73 sq m ESTIMATED GFR IS NOT rurl=3208) ACCURATE CREATININE CLEARANCE IN PREDICTING GLOMERULAR FILTRATION RATE. ESTIMATED GFR IS NOT APPLICABLE FOR DIALYSIS PATIENTS. [id number] 06:29:00 Test Item Value Reference Range Comments PARTIAL THROMBOPLASTIN TIME (BEAKER) (test 62.4 seconds 22.5-36.0 nfrl=061) CBC W/PLT COUNT & AUTO [id number] 06:28:00 Test Item Value Reference Range Comments WHITE BLOOD CELL COUNT (BEAKER) (test lvcw=393) 11.5 K/ L 3.5-10.5 RED BLOOD CELL COUNT (BEAKER) (test bedu=465) 2.74 M/ L 3.93-5.22 HEMOGLOBIN (BEAKER) (test mwab=388) 8.1 GM/DL 11.2-15.7 HEMATOCRIT (BEAKER) (test pqku=780) 26.7 % 34.1-44.9 MEAN CORPUSCULAR VOLUME (BEAKER) (test zcuq=406) 97.4 fL 79.4-94.8 MEAN CORPUSCULAR HEMOGLOBIN (BEAKER) (test 29.6 pg 25.6-32.2 zbco=008) MEAN CORPUSCULAR HEMOGLOBIN CONC (BEAKER) (test 30.3 GM/DL 32.2-35.5 mvnz=290) RED CELL DISTRIBUTION WIDTH (BEAKER) (test 19.5 % 11.7-14.4 qizd=475) PLATELET COUNT (BEAKER) (test vthd=779) 179 K/CU MM 150-450 MEAN PLATELET VOLUME (BEAKER) (test afyz=095) 9.4 fL 9.4-12.3 NUCLEATED RED BLOOD CELLS (BEAKER) (test 0 /100 WBC 0-0 kzta=499) NEUTROPHILS RELATIVE PERCENT (BEAKER) (test 76 % pbwt=099) LYMPHOCYTES RELATIVE PERCENT (BEAKER) (test 10 % wkyq=015) MONOCYTES RELATIVE PERCENT (BEAKER) (test 11 % lhjf=827) EOSINOPHILS RELATIVE PERCENT (BEAKER) (test 2 % kcut=468) BASOPHILS RELATIVE PERCENT (BEAKER) (test 0 % xhid=255) NEUTROPHILS ABSOLUTE COUNT (BEAKER) (test 8.73 K/ L 1.56-6.13 cdpg=665) LYMPHOCYTES ABSOLUTE COUNT (BEAKER) (test 1.16 K/ L 1.18-3.74 runh=819) MONOCYTES ABSOLUTE COUNT (BEAKER) (test 1.24 K/ L 0.24-0.36 wtpu=726) EOSINOPHILS ABSOLUTE COUNT (BEAKER) (test 0.26 K/ L 0.04-0.36 gsjw=928) BASOPHILS ABSOLUTE COUNT (BEAKER) (test 0.04 K/ L 0.01-0.08 ohxp=473) IMMATURE GRANULOCYTES-RELATIVE PERCENT (BEAKER) 1 % 0-1 (test fnmg=3854) CALCIUM, [id number] 06:11:00 Test Item Value Reference Range Comments CALCIUM IONIZED (BEAKER) (test zywj=410) 1.11 mmol/L 1.12-1.27 PH, BLOOD (BEAKER) (test mjsn=7172) 7.38 [id number] 23:27:00 Test Item Value Reference Range Comments PARTIAL THROMBOPLASTIN TIME (BEAKER) (test 66.0 seconds 22.5-36.0 sppg=000) CBC W/PLT COUNT & AUTO [id number] 06:33:00 Test Item Value Reference Range Comments WHITE BLOOD CELL COUNT 11.3 K/ L 3.5-10.5 (BEAKER) (test odmk=555) RED BLOOD CELL COUNT (BEAKER) 2.77 M/ L 3.93-5.22 (test ytvk=640) HEMOGLOBIN (BEAKER) (test 7.9 GM/DL 11.2-15.7 twie=784) HEMATOCRIT (BEAKER) (test 26.6 % 34.1-44.9 hkwj=434) MEAN CORPUSCULAR VOLUME 96.0 fL 79.4-94.8 Discordant MCV results (BEAKER) (test ssme=837) compared to previous results; clinical correlation required. MEAN CORPUSCULAR HEMOGLOBIN 28.5 pg 25.6-32.2 (BEAKER) (test hzyu=363) MEAN CORPUSCULAR HEMOGLOBIN 29.7 GM/DL 32.2-35.5 CONC (BEAKER) (test emaz=600) RED CELL DISTRIBUTION WIDTH 19.2 % 11.7-14.4 (BEAKER) (test pczk=655) PLATELET COUNT (BEAKER) (test 167 K/CU MM 150-450 bxcw=532) MEAN PLATELET VOLUME (BEAKER) 9.9 fL 9.4-12.3 (test glkv=344) NUCLEATED RED BLOOD CELLS 0 /100 WBC 0-0 (BEAKER) (test rocj=657) NEUTROPHILS RELATIVE PERCENT 78 % (BEAKER) (test jbgo=051) LYMPHOCYTES RELATIVE PERCENT 9 % (BEAKER) (test pxpn=181) MONOCYTES RELATIVE PERCENT 9 % (BEAKER) (test xfdo=976) EOSINOPHILS RELATIVE PERCENT 1 % (BEAKER) (test kcnl=228) BASOPHILS RELATIVE PERCENT 0 % (BEAKER) (test aonj=230) NEUTROPHILS ABSOLUTE COUNT 8.86 K/ L 1.56-6.13 (BEAKER) (test dupu=163) LYMPHOCYTES ABSOLUTE COUNT 1.06 K/ L 1.18-3.74 (BEAKER) (test yoid=574) MONOCYTES ABSOLUTE COUNT 1.04 K/ L 0.24-0.36 (BEAKER) (test nrvf=086) EOSINOPHILS ABSOLUTE COUNT 0.16 K/ L 0.04-0.36 (BEAKER) (test gzwv=774) BASOPHILS ABSOLUTE COUNT 0.04 K/ L 0.01-0.08 (BEAKER) (test qpxt=341) IMMATURE 2 % 0-1 GRANULOCYTES-RELATIVE PERCENT (BEAKER) (test dvaa=3334) COMPREHENSIVE METABOLIC [id number] 06:10:00 Test Item Value Reference Range Comments TOTAL PROTEIN (BEAKER) 5.4 gm/dL 6.0-8.3 (test buro=374) ALBUMIN (BEAKER) (test 2.9 g/dL 3.5-5.0 alrd=1714) ALKALINE PHOSPHATASE 76 U/L 40-150 (BEAKER) (test yrjh=689) BILIRUBIN TOTAL (BEAKER) 1.2 mg/dL 0.2-1.2 (test bfmc=399) SODIUM (BEAKER) (test 147 meq/L 136-145 betv=075) POTASSIUM (BEAKER) (test 3.6 meq/L 3.5-5.1 mxzr=924) CHLORIDE (BEAKER) (test 115 meq/L 98-107 xhqn=162) CO2 (BEAKER) (test 24 meq/L 22-29 mmzq=616) BLOOD UREA NITROGEN 21 mg/dL 7-21 (BEAKER) (test uvhu=847) CREATININE (BEAKER) (test 0.85 mg/dL 0.57-1.25 uzvp=784) GLUCOSE RANDOM (BEAKER) 125 mg/dL 70-105 (test blkw=656) CALCIUM (BEAKER) (test 8.7 mg/dL 8.4-10.2 wrhx=623) AST (SGOT) (BEAKER) (test 25 U/L 5-34 koin=052) ALT (SGPT) (BEAKER) (test 32 U/L 6-55 wjuh=580) EGFR (BEAKER) (test 63 mL/min/1.73 sq m ESTIMATED GFR IS NOT stdc=1365) ACCURATE CREATININE CLEARANCE IN PREDICTING GLOMERULAR FILTRATION RATE. ESTIMATED GFR IS NOT APPLICABLE FOR DIALYSIS PATIENTS. PROTHROMBIN [id number] 06:07:00 Test Item Value Reference Range Comments PROTIME (BEAKER) (test qhay=401) 18.0 seconds 11.7-14.7 INR (BEAKER) (test dbqo=169) 1.5 <=5.9 RECOMMENDED COUMADIN/WARFARIN INR THERAPY RANGESSTANDARD DOSE: 2.0 - 3.0 Includes: PROPHYLAXIS forvenous thrombosis, systemic embolization; TREATMENT for venous thrombosis and/or pulmonary embolus.HIGH RISK: Target INR is 2.5-3.5 for patients with mechanical heart valves.OCCULT BLOOD, [id number] 23:08:00 Test Item Value Reference Range Comments FECAL OCCULT BLOOD (BEAKER) (test spqc=894) Positive Negative PROTHROMBIN TIME/[id number] 15:58:00 Test Item Value Reference Range Comments PROTIME (BEAKER) (test dzdt=579) 25.9 seconds 11.7-14.7 INR (BEAKER) (test fjcw=435) 2.4 <=5.9 RECOMMENDED COUMADIN/WARFARIN INR THERAPY RANGESSTANDARD DOSE: 2.0 - 3.0 Includes: PROPHYLAXIS forvenous thrombosis, systemic embolization; TREATMENT for venous thrombosis and/or pulmonary embolus.HIGH RISK: Target INR is 2.5-3.5 for patients with mechanical heart valves.CBC (HEMOGRAM ONLY)[id number] 15:41:00 Test Item Value Reference Range Comments WHITE BLOOD CELL COUNT (BEAKER) (test qtaf=841) 10.8 K/ L 3.5-10.5 RED BLOOD CELL COUNT (BEAKER) (test ejlo=440) 2.73 M/ L 3.93-5.22 HEMOGLOBIN (BEAKER) (test fetc=898) 8.0 GM/DL 11.2-15.7 HEMATOCRIT (BEAKER) (test ploj=576) 28.0 % 34.1-44.9 MEAN CORPUSCULAR VOLUME (BEAKER) (test gjwd=305) 102.6 fL 79.4-94.8 MEAN CORPUSCULAR HEMOGLOBIN (BEAKER) (test 29.3 pg 25.6-32.2 tpny=299) MEAN CORPUSCULAR HEMOGLOBIN CONC (BEAKER) (test 28.6 GM/DL 32.2-35.5 gdbz=818) RED CELL DISTRIBUTION WIDTH (BEAKER) (test 18.7 % 11.7-14.4 gvny=369) PLATELET COUNT (BEAKER) (test bjqp=296) 165 K/CU MM 150-450 MEAN PLATELET VOLUME (BEAKER) (test bgqq=232) 9.8 fL 9.4-12.3 NUCLEATED RED BLOOD CELLS (BEAKER) (test 0 /100 WBC 0-0 wija=667) HEPATIC FUNCTION [id number] 11:23:00 Test Item Value Reference Range Comments TOTAL PROTEIN (BEAKER) (test yxid=347) 4.8 gm/dL 6.0-8.3 ALBUMIN (BEAKER) (test tdep=7561) 2.6 g/dL 3.5-5.0 BILIRUBIN TOTAL (BEAKER) (test fqhc=028) 1.2 mg/dL 0.2-1.2 BILIRUBIN DIRECT (BEAKER) (test elad=649) 0.8 mg/dL 0.1-0.5 ALKALINE PHOSPHATASE (BEAKER) (test obcs=576) 69 U/L 40-150 AST (SGOT) (BEAKER) (test mxoy=884) 29 U/L 5-34 ALT (SGPT) (BEAKER) (test zhgk=584) 32 U/L 6-55 [id number] 07:13:00 Test Item Value Reference Range Comments PHOSPHORUS (BEAKER) (test sypz=713) 2.5 mg/dL 2.3-4.7 [id number] 07:13:00 Test Item Value Reference Range Comments MAGNESIUM (BEAKER) (test ervv=273) 1.6 mg/dL 1.6-2.6 BASIC METABOLIC [id number] 07:13:00 Test Item Value Reference Range Comments SODIUM (BEAKER) (test 143 meq/L 136-145 wuxt=831) POTASSIUM (BEAKER) (test 3.5 meq/L 3.5-5.1 yqef=733) CHLORIDE (BEAKER) (test 112 meq/L 98-107 spbg=751) CO2 (BEAKER) (test 23 meq/L 22-29 qkxw=966) BLOOD UREA NITROGEN 30 mg/dL 7-21 (BEAKER) (test ytcn=334) CREATININE (BEAKER) (test 0.75 mg/dL 0.57-1.25 eenb=216) GLUCOSE RANDOM (BEAKER) 134 mg/dL 70-105 (test rbqd=144) CALCIUM (BEAKER) (test 8.3 mg/dL 8.4-10.2 vgqr=435) EGFR (BEAKER) (test 73 mL/min/1.73 sq m ESTIMATED GFR IS NOT wxjd=5046) ACCURATE CREATININE CLEARANCE IN PREDICTING GLOMERULAR FILTRATION RATE. ESTIMATED GFR IS NOT APPLICABLE FOR DIALYSIS PATIENTS. CBC W/PLT COUNT & AUTO [id number] 06:52:00 Test Item Value Reference Range Comments WHITE BLOOD CELL COUNT 10.0 K/ L 3.5-10.5 (BEAKER) (test umcg=119) RED BLOOD CELL COUNT (BEAKER) 2.52 M/ L 3.93-5.22 (test zyid=489) HEMOGLOBIN (BEAKER) (test 7.5 GM/DL 11.2-15.7 hgnm=860) HEMATOCRIT (BEAKER) (test 23.4 % 34.1-44.9 ikqx=159) MEAN CORPUSCULAR VOLUME 92.9 fL 79.4-94.8 Discordant MCV result (BEAKER) (test bcxz=041) compared to previous one; Clinical correlation required. MEAN CORPUSCULAR HEMOGLOBIN 29.8 pg 25.6-32.2 (BEAKER) (test noeu=780) MEAN CORPUSCULAR HEMOGLOBIN 32.1 GM/DL 32.2-35.5 CONC (BEAKER) (test wifu=044) RED CELL DISTRIBUTION WIDTH 17.3 % 11.7-14.4 (BEAKER) (test vwdb=176) PLATELET COUNT (BEAKER) (test 130 K/CU MM 150-450 npld=369) MEAN PLATELET VOLUME (BEAKER) 9.9 fL 9.4-12.3 (test yeyg=668) NUCLEATED RED BLOOD CELLS 0 /100 WBC 0-0 (BEAKER) (test gpdw=785) NEUTROPHILS RELATIVE PERCENT 84 % (BEAKER) (test xqta=552) LYMPHOCYTES RELATIVE PERCENT 6 % (BEAKER) (test kpgf=843) MONOCYTES RELATIVE PERCENT 7 % (BEAKER) (test uopt=996) EOSINOPHILS RELATIVE PERCENT 1 % (BEAKER) (test vxdu=728) BASOPHILS RELATIVE PERCENT 0 % (BEAKER) (test bpwn=717) NEUTROPHILS ABSOLUTE COUNT 8.43 K/ L 1.56-6.13 (BEAKER) (test ezph=425) LYMPHOCYTES ABSOLUTE COUNT 0.59 K/ L 1.18-3.74 (BEAKER) (test mwdw=231) MONOCYTES ABSOLUTE COUNT 0.70 K/ L 0.24-0.36 (BEAKER) (test jdtn=777) EOSINOPHILS ABSOLUTE COUNT 0.10 K/ L 0.04-0.36 (BEAKER) (test pvbj=635) BASOPHILS ABSOLUTE COUNT 0.01 K/ L 0.01-0.08 (BEAKER) (test eajj=676) IMMATURE 2 % 0-1 GRANULOCYTES-RELATIVE PERCENT (BEAKER) (test wmva=4150) CALCIUM, [id number] 06:50:00 Test Item Value Reference Range Comments CALCIUM IONIZED (BEAKER) (test phdw=046) 1.04 mmol/L 1.12-1.27 PH, BLOOD (BEAKER) (test zptq=6044) 7.60 PROTHROMBIN TIME/[id number] 06:45:00 Test Item Value Reference Range Comments PROTIME (BEAKER) (test umhs=583) 49.1 seconds 11.7-14.7 INR (BEAKER) (test njza=071) 5.5 <=5.9 RECOMMENDED COUMADIN/WARFARIN INR THERAPY RANGESSTANDARD DOSE: 2.0 - 3.0 Includes: PROPHYLAXIS forvenous thrombosis, systemic embolization; TREATMENT for venous thrombosis and/or pulmonary embolus.HIGH RISK: Target INR is 2.5-3.5 for patients with mechanical heart valves.While on [id number] 16: 03:00 Test Item Value Reference Range Comments LIPASE (BEAKER) (test kven=579) 54 U/L 8-78 [id number] 16:03:00 Test Item Value Reference Range Comments AMYLASE (BEAKER) (test xkqd=179) 43 U/L 25-125 CBC (HEMOGRAM ONLY)2018-12-31 11:55:00 Test Item Value Reference Range Comments WHITE BLOOD CELL COUNT (BEAKER) (test gmif=292) 8.0 K/ L 3.5-10.5 RED BLOOD CELL COUNT (BEAKER) (test zsoj=725) 2.38 M/ L 3.93-5.22 HEMOGLOBIN (BEAKER) (test lowx=325) 6.8 GM/DL 11.2-15.7 HEMATOCRIT (BEAKER) (test ejez=526) 23.2 % 34.1-44.9 MEAN CORPUSCULAR VOLUME (BEAKER) (test uvtm=106) 97.5 fL 79.4-94.8 MEAN CORPUSCULAR HEMOGLOBIN (BEAKER) (test 28.6 pg 25.6-32.2 ziki=660) MEAN CORPUSCULAR HEMOGLOBIN CONC (BEAKER) (test 29.3 GM/DL 32.2-35.5 eava=108) RED CELL DISTRIBUTION WIDTH (BEAKER) (test 18.7 % 11.7-14.4 qcki=671) PLATELET COUNT (BEAKER) (test tvih=377) 158 K/CU MM 150-450 MEAN PLATELET VOLUME (BEAKER) (test dppz=986) 9.0 fL 9.4-12.3 NUCLEATED RED BLOOD CELLS (BEAKER) (test 0 /100 WBC 0-0 gacg=482) HEMOGLOBIN AND [id number] 11:50:00 Test Item Value Reference Range Comments HEMOGLOBIN (BEAKER) (test sfvd=710) 6.8 GM/DL 11.2-15.7 HEMATOCRIT (BEAKER) (test rawp=457) 23.2 % 34.1-44.9 HEPATOBILIARY [id number] 11:10:00FINAL REPORT PROCEDURE: HEPATOBILIARY SCAN CPT CODE: [id number] INDICATION: Right upper quadrant pain PROTOCOL: 5.4 [...] IMPRESSION: Normal hepatobiliary scan. Signed: Ponce Quesada MDReport Verified Date/Time: 12/31/2018 11:10:08 Reading Location:[address] Reading Room Electronically signed by: PONCE QUESADA MD on 11:10 AMU/S, ABDOMINAL, [id number] 10:01:00Abdomen limited area? Add comment if clarification is needed.->Right upper quadrantReason for exam: ->eval for cholecystitisFINAL REPORT Ultrasound of the Right Upper Quadrant of the Abdomen Clinical History: eval for cholecystitis Discussion: Sonographic evaluation of the right upper quadrant of the abdomen is performed. Liver: 15 cm in length at the right midclavicular line. Coarsened echotexture. No lesion is identified by ultrasound. Main portal vein diameter 1.1 cm. Biliary tree: Common duct 10 mm. No intrahepatic biliary dilatation. Gallbladder: There are stones in the gallbladder.Mild wall thickening is noted, measuring 4 mm. Trace pericholecystic fluid. Sonographic Stewart's sign cannot be well assessed as patient is on pain medicine. Pancreas: Partially visualized, unremarkable. Ascites: No ascites. Trace right pleural effusion Right kidney: 11.4 x 4.1 x 4.7 cm. Normal cortical echogenicity. No mass. No shadowing calculus. No hydronephrosis. IVC/Aorta: Segments partially seen. Unremarkable. Impression: Cholelithiasis. Gallbladder wall thickening with trace pericholecystic fluid. Findings may reflect acute cholecystitis. CBD remains mildly dilated. Coarsened echotexture of liver, correlate clinically for chronic liver disease or cirrhosis. Trace right pleural effusion. Signed: Reji Crabtree MDReport Verified Date/Time: 12/31/2018 10: 01:22 Reading Location: [address] Ultrasound Reading Room CALCIUM, [id number] 09:49:00 Test Item Value Reference Range Comments CALCIUM IONIZED (BEAKER) (test ibrq=557) 1.02 mmol/L 1.12-1.27 PH, BLOOD (BEAKER) (test vyrl=3548) 7.52 [id number] 09:31:00 Test Item Value Reference Range Comments MAGNESIUM (BEAKER) (test 1.9 mg/dL 1.6-2.6 Specimen slightly hemolyzed vejn=255) [id number] 09:31:00 Test Item Value Reference Range Comments PHOSPHORUS (BEAKER) (test 2.0 mg/dL 2.3-4.7 Specimen slightly hemolyzed ebkq=484) BASIC METABOLIC [id number] 09:31:00 Test Item Value Reference Range Comments SODIUM (BEAKER) (test 142 meq/L 136-145 fwgc=675) POTASSIUM (BEAKER) (test 4.0 meq/L 3.5-5.1 Specimen slightly kyzi=536) hemolyzed CHLORIDE (BEAKER) (test 112 meq/L 98-107 wmkq=700) CO2 (BEAKER) (test 24 meq/L 22-29 yjhx=079) BLOOD UREA NITROGEN 32 mg/dL 7-21 (BEAKER) (test scnl=350) CREATININE (BEAKER) (test 0.68 mg/dL 0.57-1.25 Specimen slightly vwcy=228) hemolyzed GLUCOSE RANDOM (BEAKER) 106 mg/dL 70-105 (test vwsf=756) CALCIUM (BEAKER) (test 8.5 mg/dL 8.4-10.2 jnws=187) EGFR (BEAKER) (test 82 mL/min/1.73 sq m ESTIMATED GFR IS NOT qafc=6727) ACCURATE CREATININE CLEARANCE IN PREDICTING GLOMERULAR FILTRATION RATE. ESTIMATED GFR IS NOT APPLICABLE FOR DIALYSIS PATIENTS. CBC W/PLT COUNT & AUTO [id number] 09:21:00 Test Item Value Reference Range Comments WHITE BLOOD CELL COUNT (BEAKER) (test brge=637) 7.0 K/ L 3.5-10.5 RED BLOOD CELL COUNT (BEAKER) (test uuvw=756) 2.12 M/ L 3.93-5.22 HEMOGLOBIN (BEAKER) (test tnlg=870) 6.2 GM/DL 11.2-15.7 HEMATOCRIT (BEAKER) (test xeak=669) 20.4 % 34.1-44.9 MEAN CORPUSCULAR VOLUME (BEAKER) (test rcbn=380) 96.2 fL 79.4-94.8 MEAN CORPUSCULAR HEMOGLOBIN (BEAKER) (test 29.2 pg 25.6-32.2 dquf=299) MEAN CORPUSCULAR HEMOGLOBIN CONC (BEAKER) (test 30.4 GM/DL 32.2-35.5 jzla=308) RED CELL DISTRIBUTION WIDTH (BEAKER) (test 18.6 % 11.7-14.4 dvhw=535) PLATELET COUNT (BEAKER) (test qasa=715) 156 K/CU MM 150-450 MEAN PLATELET VOLUME (BEAKER) (test lyxc=285) 9.6 fL 9.4-12.3 NUCLEATED RED BLOOD CELLS (BEAKER) (test 0 /100 WBC 0-0 mgxc=694) NEUTROPHILS RELATIVE PERCENT (BEAKER) (test 70 % srsn=745) LYMPHOCYTES RELATIVE PERCENT (BEAKER) (test 15 % kbfz=883) MONOCYTES RELATIVE PERCENT (BEAKER) (test 12 % zshg=980) EOSINOPHILS RELATIVE PERCENT (BEAKER) (test 1 % apqr=448) BASOPHILS RELATIVE PERCENT (BEAKER) (test 0 % aiab=586) NEUTROPHILS ABSOLUTE COUNT (BEAKER) (test 4.91 K/ L 1.56-6.13 auer=605) LYMPHOCYTES ABSOLUTE COUNT (BEAKER) (test 1.03 K/ L 1.18-3.74 cxyb=112) MONOCYTES ABSOLUTE COUNT (BEAKER) (test 0.81 K/ L 0.24-0.36 kyhz=461) EOSINOPHILS ABSOLUTE COUNT (BEAKER) (test 0.09 K/ L 0.04-0.36 goga=351) BASOPHILS ABSOLUTE COUNT (BEAKER) (test 0.01 K/ L 0.01-0.08 slcz=677) IMMATURE GRANULOCYTES-RELATIVE PERCENT (BEAKER) 2 % 0-1 (test qvzz=8623) PROTHROMBIN [id number] 09:19:00 Test Item Value Reference Range Comments PROTIME (BEAKER) (test whco=932) 46.6 seconds 11.7-14.7 INR (BEAKER) (test hpnq=531) 5.1 <=5.9 RECOMMENDED COUMADIN/WARFARIN INR THERAPY RANGESSTANDARD DOSE: 2.0 - 3.0 Includes: PROPHYLAXIS forvenous thrombosis, systemic embolization; TREATMENT for venous thrombosis and/or pulmonary embolus.HIGH RISK: Target INR is 2.5-3.5 for patients with mechanical heart valves.While on warfarinCBC (HEMOGRAM ONLY) 2018-12-30 19:07:00 Test Item Value Reference Range Comments WHITE BLOOD CELL COUNT (BEAKER) (test qgcy=859) 10.1 K/ L 3.5-10.5 RED BLOOD CELL COUNT (BEAKER) (test dync=577) 2.69 M/ L 3.93-5.22 HEMOGLOBIN (BEAKER) (test zhsk=821) 7.8 GM/DL 11.2-15.7 HEMATOCRIT (BEAKER) (test zexu=986) 25.9 % 34.1-44.9 MEAN CORPUSCULAR VOLUME (BEAKER) (test reat=622) 96.3 fL 79.4-94.8 MEAN CORPUSCULAR HEMOGLOBIN (BEAKER) (test 29.0 pg 25.6-32.2 yhgz=941) MEAN CORPUSCULAR HEMOGLOBIN CONC (BEAKER) (test 30.1 GM/DL 32.2-35.5 hoqx=325) RED CELL DISTRIBUTION WIDTH (BEAKER) (test 18.4 % 11.7-14.4 latb=029) PLATELET COUNT (BEAKER) (test kors=601) 184 K/CU MM 150-450 MEAN PLATELET VOLUME (BEAKER) (test hdnp=177) 9.5 fL 9.4-12.3 NUCLEATED RED BLOOD CELLS (BEAKER) (test 0 /100 WBC 0-0 xitw=545) [id number] 08:40:00 Test Item Value Reference Range Comments PHOSPHORUS (BEAKER) (test sclb=850) 2.2 mg/dL 2.3-4.7 [id number] 08:40:00 Test Item Value Reference Range Comments MAGNESIUM (BEAKER) (test xhgc=779) 1.9 mg/dL 1.6-2.6 BASIC METABOLIC [id number] 08:40:00 Test Item Value Reference Range Comments SODIUM (BEAKER) (test 141 meq/L 136-145 qzyp=049) POTASSIUM (BEAKER) (test 3.7 meq/L 3.5-5.1 aztp=113) CHLORIDE (BEAKER) (test 110 meq/L 98-107 sfqs=952) CO2 (BEAKER) (test 27 meq/L 22-29 wsgy=567) BLOOD UREA NITROGEN 27 mg/dL 7-21 (BEAKER) (test rjhk=977) CREATININE (BEAKER) (test 0.78 mg/dL 0.57-1.25 zyey=184) GLUCOSE RANDOM (BEAKER) 109 mg/dL 70-105 (test jajz=617) CALCIUM (BEAKER) (test 8.8 mg/dL 8.4-10.2 jnei=376) EGFR (BEAKER) (test 70 mL/min/1.73 sq m ESTIMATED GFR IS NOT ufkb=3715) ACCURATE CREATININE CLEARANCE IN PREDICTING GLOMERULAR FILTRATION RATE. ESTIMATED GFR IS NOT APPLICABLE FOR DIALYSIS PATIENTS. [id number] 08:18:00 Test Item Value Reference Range Comments PARTIAL THROMBOPLASTIN TIME (BEAKER) (test 148.0 seconds 22.5-36.0 jwep=304) PROTHROMBIN [id number] 08:14:00 Test Item Value Reference Range Comments PROTIME (BEAKER) (test ngom=605) 35.2 seconds 11.7-14.7 INR (BEAKER) (test dlka=641) 3.5 <=5.9 RECOMMENDED COUMADIN/WARFARIN INR THERAPY RANGESSTANDARD DOSE: 2.0 - 3.0 Includes: PROPHYLAXIS forvenous thrombosis, systemic embolization; TREATMENT for venous thrombosis and/or pulmonary embolus.HIGH RISK: Target INR is 2.5-3.5 for patients with mechanical heart valves.PLATELET [id number] 08:04:00 Test Item Value Reference Range Comments PLATELET COUNT (BEAKER) (test nchq=396) 179 K/CU MM 150-450 CBC W/PLT COUNT & AUTO [id number] 08:04:00 Test Item Value Reference Range Comments WHITE BLOOD CELL COUNT (BEAKER) (test rnen=863) 9.0 K/ L 3.5-10.5 RED BLOOD CELL COUNT (BEAKER) (test rbfs=285) 2.71 M/ L 3.93-5.22 HEMOGLOBIN (BEAKER) (test vrzz=097) 7.9 GM/DL 11.2-15.7 HEMATOCRIT (BEAKER) (test jybw=652) 25.6 % 34.1-44.9 MEAN CORPUSCULAR VOLUME (BEAKER) (test nnjc=685) 94.5 fL 79.4-94.8 MEAN CORPUSCULAR HEMOGLOBIN (BEAKER) (test 29.2 pg 25.6-32.2 hydn=278) MEAN CORPUSCULAR HEMOGLOBIN CONC (BEAKER) (test 30.9 GM/DL 32.2-35.5 vywg=792) RED CELL DISTRIBUTION WIDTH (BEAKER) (test 18.0 % 11.7-14.4 lczs=095) PLATELET COUNT (BEAKER) (test jvoq=981) 179 K/CU MM 150-450 MEAN PLATELET VOLUME (BEAKER) (test irrr=831) 9.3 fL 9.4-12.3 NUCLEATED RED BLOOD CELLS (BEAKER) (test 0 /100 WBC 0-0 lvnu=822) NEUTROPHILS RELATIVE PERCENT (BEAKER) (test 69 % jvkc=192) LYMPHOCYTES RELATIVE PERCENT (BEAKER) (test 15 % odud=007) MONOCYTES RELATIVE PERCENT (BEAKER) (test 12 % htwo=997) EOSINOPHILS RELATIVE PERCENT (BEAKER) (test 2 % rsit=923) BASOPHILS RELATIVE PERCENT (BEAKER) (test 0 % mvlz=211) NEUTROPHILS ABSOLUTE COUNT (BEAKER) (test 6.23 K/ L 1.56-6.13 evnx=668) LYMPHOCYTES ABSOLUTE COUNT (BEAKER) (test 1.38 K/ L 1.18-3.74 uynw=788) MONOCYTES ABSOLUTE COUNT (BEAKER) (test 1.06 K/ L 0.24-0.36 vhlx=566) EOSINOPHILS ABSOLUTE COUNT (BEAKER) (test 0.16 K/ L 0.04-0.36 bjeu=061) BASOPHILS ABSOLUTE COUNT (BEAKER) (test 0.03 K/ L 0.01-0.08 rzdj=067) IMMATURE GRANULOCYTES-RELATIVE PERCENT (BEAKER) 2 % 0-1 (test fhfp=5219) CALCIUM, [id number] 08:04:00 Test Item Value Reference Range Comments CALCIUM IONIZED (BEAKER) (test xqrp=981) 1.09 mmol/L 1.12-1.27 PH, BLOOD (BEAKER) (test riuy=8193) 7.45 [id number] 23:41:00 Test Item Value Reference Range Comments PARTIAL THROMBOPLASTIN TIME (BEAKER) (test 70.0 seconds 22.5-36.0 fppo=808) PROTHROMBIN [id number] 21:40:00 Test Item Value Reference Range Comments PROTIME (BEAKER) (test ralo=202) 27.4 seconds 11.7-14.7 INR (BEAKER) (test pykd=526) 2.6 <=5.9 RECOMMENDED COUMADIN/WARFARIN INR THERAPY RANGESSTANDARD DOSE: 2.0 - 3.0 Includes: PROPHYLAXIS forvenous thrombosis, systemic embolization; TREATMENT for venous thrombosis and/or pulmonary embolus.HIGH RISK: Target INR is 2.5-3.5 for patients with mechanical heart valves.RAD, ABDOMEN/KUB, 1 VIEW [id number] 14:44:00Reason for exam:->abdominal painShould this be performed at the bedside?->YesFINAL REPORT CLINICAL HISTORY: abdominal pain TECHNIQUE: Supine abdomen COMPARISON: None IMPRESSION: The bowel gas pattern is nonspecific. Free air and air-fluid levels are not seen but cannot be definitively excluded on the supine view. There is pneumobilia compatible with the recent ERCP procedure. Signed: Dimple Garzon MDReport Verified Date/ Time: 12/29/2018 14:44:14 Reading Location: [address] Consult Reading Room RAD, CHEST, 1 VIEW, NON [id number] 14:20:00Reason for exam:->sobShould this be performed at the bedside?->YesFINAL REPORT EXAM: Frontal chest radiograph HISTORY PROVIDED: Shortness of breath COMPARISON: 2018 IMPRESSION:Since the previous examination, interstitial and airspace opacities appear increased which may represent worsening pulmonary edema, infection, or a combination of these entities. Blunting of the left costophrenic angle suggests a small pleural effusion. No discernible pneumothorax. Unchanged positioning of the left chest wall ICD. 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 The cardiac silhouette remains enlarged. No acute osseous abnormality. Degenerative changes are noted. Signed: James Rogers MDReport Verified Date/Time: 09/2019 14:20:13 Reading Location: [facility] PT/[id number] 13:49:00 Test Item Value Reference Range Comments PROTIME (BEAKER) (test iols=050) 26.2 seconds 11.7-14.7 INR (BEAKER) (test kumx=416) 2.4 <=5.9 PARTIAL THROMBOPLASTIN TIME (BEAKER) (test 106.3 seconds 22.5-36.0 pwls=996) RECOMMENDED COUMADIN/WARFARIN INR THERAPY RANGESSTANDARD DOSE: 2.0 - 3.0 Includes: PROPHYLAXIS forvenous thrombosis, systemic embolization; TREATMENT for venous thrombosis and/or pulmonary embolus.HIGH RISK: Target INR is 2.5-3.5 for patients with mechanical heart valves.[id number] 08:16:00 Test Item Value Reference Range Comments PHOSPHORUS (BEAKER) (test gkvf=537) 1.9 mg/dL 2.3-4.7 [id number] 08:16:00 Test Item Value Reference Range Comments MAGNESIUM (BEAKER) (test dszl=012) 1.5 mg/dL 1.6-2.6 COMPREHENSIVE METABOLIC [id number] 08:16:00 Test Item Value Reference Range Comments TOTAL PROTEIN (BEAKER) 5.6 gm/dL 6.0-8.3 (test rhuz=076) ALBUMIN (BEAKER) (test 2.9 g/dL 3.5-5.0 bqoo=4122) ALKALINE PHOSPHATASE 114 U/L 40-150 (BEAKER) (test umaf=959) BILIRUBIN TOTAL (BEAKER) 1.0 mg/dL 0.2-1.2 (test ozeb=830) SODIUM (BEAKER) (test 140 meq/L 136-145 hjuq=899) POTASSIUM (BEAKER) (test 3.4 meq/L 3.5-5.1 raez=447) CHLORIDE (BEAKER) (test 111 meq/L 98-107 hsem=480) CO2 (BEAKER) (test 21 meq/L 22-29 vvme=450) BLOOD UREA NITROGEN 19 mg/dL 7-21 (BEAKER) (test nqqq=782) CREATININE (BEAKER) (test 0.74 mg/dL 0.57-1.25 ueme=898) GLUCOSE RANDOM (BEAKER) 113 mg/dL 70-105 (test prew=425) CALCIUM (BEAKER) (test 8.5 mg/dL 8.4-10.2 bbih=662) AST (SGOT) (BEAKER) (test 28 U/L 5-34 zkuk=137) ALT (SGPT) (BEAKER) (test 63 U/L 6-55 sdgl=303) EGFR (BEAKER) (test 74 mL/min/1.73 sq m ESTIMATED GFR IS NOT exgf=6054) ACCURATE CREATININE CLEARANCE IN PREDICTING GLOMERULAR FILTRATION RATE. ESTIMATED GFR IS NOT APPLICABLE FOR DIALYSIS PATIENTS. OCCULT BLOOD, [id number] 08:11:00 Test Item Value Reference Range Comments FECAL OCCULT BLOOD (BEAKER) (test cpkv=878) Positive Negative [id number] 07:54:00 Test Item Value Reference Range Comments PARTIAL THROMBOPLASTIN TIME (BEAKER) (test 91.7 seconds 22.5-36.0 aqwe=167) PROTHROMBIN [id number] 07:52:00 Test Item Value Reference Range Comments PROTIME (BEAKER) (test rfzq=973) 21.0 seconds 11.7-14.7 INR (BEAKER) (test jgpq=182) 1.8 <=5.9 RECOMMENDED COUMADIN/WARFARIN INR THERAPY RANGESSTANDARD DOSE: 2.0 - 3.0 Includes: PROPHYLAXIS forvenous thrombosis, systemic embolization; TREATMENT for venous thrombosis and/or pulmonary embolus.HIGH RISK: Target INR is 2.5-3.5 for patients with mechanical heart valves.CALCIUM, [id number] 07:44:00 Test Item Value Reference Range Comments CALCIUM IONIZED (BEAKER) (test wtxm=076) 1.02 mmol/L 1.12-1.27 PH, BLOOD (BEAKER) (test fgxi=7213) 7.52 CBC W/PLT COUNT & AUTO [id number] 07:40:00 Test Item Value Reference Range Comments WHITE BLOOD CELL COUNT (BEAKER) (test kqeu=930) 9.1 K/ L 3.5-10.5 RED BLOOD CELL COUNT (BEAKER) (test opwq=315) 2.84 M/ L 3.93-5.22 HEMOGLOBIN (BEAKER) (test ufic=766) 8.1 GM/DL 11.2-15.7 HEMATOCRIT (BEAKER) (test ilka=856) 26.6 % 34.1-44.9 MEAN CORPUSCULAR VOLUME (BEAKER) (test gzvy=806) 93.7 fL 79.4-94.8 MEAN CORPUSCULAR HEMOGLOBIN (BEAKER) (test 28.5 pg 25.6-32.2 lqwg=227) MEAN CORPUSCULAR HEMOGLOBIN CONC (BEAKER) (test 30.5 GM/DL 32.2-35.5 husj=754) RED CELL DISTRIBUTION WIDTH (BEAKER) (test 17.5 % 11.7-14.4 mtpu=764) PLATELET COUNT (BEAKER) (test vqwr=822) 155 K/CU MM 150-450 MEAN PLATELET VOLUME (BEAKER) (test xyes=092) 8.8 fL 9.4-12.3 NUCLEATED RED BLOOD CELLS (BEAKER) (test 0 /100 WBC 0-0 kfgl=447) NEUTROPHILS RELATIVE PERCENT (BEAKER) (test 75 % jbxn=986) LYMPHOCYTES RELATIVE PERCENT (BEAKER) (test 10 % wwwa=429) MONOCYTES RELATIVE PERCENT (BEAKER) (test 11 % ynrq=705) EOSINOPHILS RELATIVE PERCENT (BEAKER) (test 3 % oawf=458) BASOPHILS RELATIVE PERCENT (BEAKER) (test 0 % yhwu=598) NEUTROPHILS ABSOLUTE COUNT (BEAKER) (test 6.83 K/ L 1.56-6.13 drzl=536) LYMPHOCYTES ABSOLUTE COUNT (BEAKER) (test 0.93 K/ L 1.18-3.74 bgki=100) MONOCYTES ABSOLUTE COUNT (BEAKER) (test 0.98 K/ L 0.24-0.36 gxzh=689) EOSINOPHILS ABSOLUTE COUNT (BEAKER) (test 0.23 K/ L 0.04-0.36 zzzs=425) BASOPHILS ABSOLUTE COUNT (BEAKER) (test 0.02 K/ L 0.01-0.08 uscr=533) IMMATURE GRANULOCYTES-RELATIVE PERCENT (BEAKER) 1 % 0-1 (test tyiy=4339) [id number] 00:48:00 Test Item Value Reference Range Comments PARTIAL THROMBOPLASTIN TIME (BEAKER) (test 95.8 seconds 22.5-36.0 ytbl=055) [id number] 23:14:00 Test Item Value Reference Range Comments PARTIAL THROMBOPLASTIN TIME (BEAKER) (test 122.4 seconds 22.5-36.0 yyqw=222) [id number] 22:19:00 Test Item Value Reference Range Comments PARTIAL THROMBOPLASTIN TIME (BEAKER) (test 173.1 seconds 22.5-36.0 gduz=914) OCCULT BLOOD, [id number] 19:09:00 Test Item Value Reference Range Comments FECAL OCCULT BLOOD (BEAKER) (test iahr=568) Positive Negative [id number] 13:41:00 Test Item Value Reference Range Comments PARTIAL THROMBOPLASTIN TIME (BEAKER) (test 90.5 seconds 22.5-36.0 owgt=252) [id number] 06:01:00 Test Item Value Reference Range Comments PARTIAL THROMBOPLASTIN TIME (BEAKER) (test 82.0 seconds 22.5-36.0 ampd=355) [id number] 04:06:00 Test Item Value Reference Range Comments PHOSPHORUS (BEAKER) (test kvdl=575) 2.0 mg/dL 2.3-4.7 [id number] 04:06:00 Test Item Value Reference Range Comments MAGNESIUM (BEAKER) (test ykql=999) 1.8 mg/dL 1.6-2.6 BASIC METABOLIC [id number] 04:06:00 Test Item Value Reference Range Comments SODIUM (BEAKER) (test 141 meq/L 136-145 kjhk=598) POTASSIUM (BEAKER) (test 3.4 meq/L 3.5-5.1 jedq=520) CHLORIDE (BEAKER) (test 111 meq/L 98-107 bzma=812) CO2 (BEAKER) (test 24 meq/L 22-29 jrxg=165) BLOOD UREA NITROGEN 18 mg/dL 7-21 (BEAKER) (test iuaa=854) CREATININE (BEAKER) (test 0.78 mg/dL 0.57-1.25 byam=196) GLUCOSE RANDOM (BEAKER) 96 mg/dL 70-105 (test uhlr=804) CALCIUM (BEAKER) (test 8.9 mg/dL 8.4-10.2 qyye=744) EGFR (BEAKER) (test 70 mL/min/1.73 sq m ESTIMATED GFR IS NOT ivyx=1075) ACCURATE CREATININE CLEARANCE IN PREDICTING GLOMERULAR FILTRATION RATE. ESTIMATED GFR IS NOT APPLICABLE FOR DIALYSIS PATIENTS. HEPATIC FUNCTION [id number] 04:06:00 Test Item Value Reference Range Comments TOTAL PROTEIN (BEAKER) (test cbjg=618) 5.3 gm/dL 6.0-8.3 ALBUMIN (BEAKER) (test qkoe=8819) 2.8 g/dL 3.5-5.0 BILIRUBIN TOTAL (BEAKER) (test ojmj=006) 1.1 mg/dL 0.2-1.2 BILIRUBIN DIRECT (BEAKER) (test rayj=692) 0.9 mg/dL 0.1-0.5 ALKALINE PHOSPHATASE (BEAKER) (test kjui=240) 118 U/L 40-150 AST (SGOT) (BEAKER) (test exzh=546) 38 U/L 5-34 ALT (SGPT) (BEAKER) (test rsqx=392) 85 U/L 6-55 [id number] 03:57:00 Test Item Value Reference Range Comments PARTIAL THROMBOPLASTIN TIME (BEAKER) (test 121.0 seconds 22.5-36.0 sxqg=822) While on warfarinPROTHROMBIN [id number] 03:44:00 Test Item Value Reference Range Comments PROTIME (BEAKER) (test gidp=102) 16.5 seconds 11.7-14.7 INR (BEAKER) (test zzku=224) 1.3 <=5.9 RECOMMENDED COUMADIN/WARFARIN INR THERAPY RANGESSTANDARD DOSE: 2.0 - 3.0 Includes: PROPHYLAXIS forvenous thrombosis, systemic embolization; TREATMENT for venous thrombosis and/or pulmonary embolus.HIGH RISK: Target INR is 2.5-3.5 for patients with mechanical heart valves.While on warfarinCBC W/PLT COUNT &amp ; AUTO [id number] 03:32:00 Test Item Value Reference Range Comments WHITE BLOOD CELL COUNT (BEAKER) (test eoyr=898) 7.6 K/ L 3.5-10.5 RED BLOOD CELL COUNT (BEAKER) (test occi=537) 2.77 M/ L 3.93-5.22 HEMOGLOBIN (BEAKER) (test lenq=637) 7.9 GM/DL 11.2-15.7 HEMATOCRIT (BEAKER) (test niyo=351) 25.8 % 34.1-44.9 MEAN CORPUSCULAR VOLUME (BEAKER) (test vzta=045) 93.1 fL 79.4-94.8 MEAN CORPUSCULAR HEMOGLOBIN (BEAKER) (test 28.5 pg 25.6-32.2 pukc=548) MEAN CORPUSCULAR HEMOGLOBIN CONC (BEAKER) (test 30.6 GM/DL 32.2-35.5 kimt=335) RED CELL DISTRIBUTION WIDTH (BEAKER) (test 16.8 % 11.7-14.4 alyx=875) PLATELET COUNT (BEAKER) (test ptej=650) 156 K/CU MM 150-450 MEAN PLATELET VOLUME (BEAKER) (test lrrt=027) 9.1 fL 9.4-12.3 NUCLEATED RED BLOOD CELLS (BEAKER) (test 0 /100 WBC 0-0 lqfp=316) NEUTROPHILS RELATIVE PERCENT (BEAKER) (test 68 % motn=054) LYMPHOCYTES RELATIVE PERCENT (BEAKER) (test 15 % qvyw=574) MONOCYTES RELATIVE PERCENT (BEAKER) (test 12 % klkm=707) EOSINOPHILS RELATIVE PERCENT (BEAKER) (test 3 % dctm=219) BASOPHILS RELATIVE PERCENT (BEAKER) (test 0 % fxke=565) NEUTROPHILS ABSOLUTE COUNT (BEAKER) (test 5.18 K/ L 1.56-6.13 qemn=386) LYMPHOCYTES ABSOLUTE COUNT (BEAKER) (test 1.15 K/ L 1.18-3.74 dkzi=970) MONOCYTES ABSOLUTE COUNT (BEAKER) (test 0.91 K/ L 0.24-0.36 sywd=305) EOSINOPHILS ABSOLUTE COUNT (BEAKER) (test 0.26 K/ L 0.04-0.36 zmrt=199) BASOPHILS ABSOLUTE COUNT (BEAKER) (test 0.02 K/ L 0.01-0.08 gcex=473) IMMATURE GRANULOCYTES-RELATIVE PERCENT (BEAKER) 1 % 0-1 (test qbty=9615) CALCIUM, [id number] 03:31:00 Test Item Value Reference Range Comments CALCIUM IONIZED (BEAKER) (test gbwc=912) 1.10 mmol/L 1.12-1.27 PH, BLOOD (BEAKER) (test dzoj=7700) 7.46 [id number] 20:42:00 Test Item Value Reference Range Comments PARTIAL THROMBOPLASTIN TIME (BEAKER) (test 54.7 seconds 22.5-36.0 wejn=836) CALCIUM, [id number] 05:56:00 Test Item Value Reference Range Comments CALCIUM IONIZED (BEAKER) (test bvvl=276) 1.10 mmol/L 1.12-1.27 PH, BLOOD (BEAKER) (test pimd=9707) 7.42 [id number] 05:12:00 Test Item Value Reference Range Comments PHOSPHORUS (BEAKER) (test niup=174) 2.1 mg/dL 2.3-4.7 [id number] 05:12:00 Test Item Value Reference Range Comments MAGNESIUM (BEAKER) (test frgr=144) 2.0 mg/dL 1.6-2.6 BASIC METABOLIC [id number] 05:12:00 Test Item Value Reference Range Comments SODIUM (BEAKER) (test 139 meq/L 136-145 nhlo=582) POTASSIUM (BEAKER) (test 3.3 meq/L 3.5-5.1 syci=415) CHLORIDE (BEAKER) (test 110 meq/L 98-107 oppk=607) CO2 (BEAKER) (test 24 meq/L 22-29 afkk=109) BLOOD UREA NITROGEN 25 mg/dL 7-21 (BEAKER) (test moxh=547) CREATININE (BEAKER) (test 0.95 mg/dL 0.57-1.25 tyio=910) GLUCOSE RANDOM (BEAKER) 101 mg/dL 70-105 (test kgrp=269) CALCIUM (BEAKER) (test 8.6 mg/dL 8.4-10.2 zfvu=974) EGFR (BEAKER) (test 56 mL/min/1.73 sq m ESTIMATED GFR IS NOT astd=8586) ACCURATE CREATININE CLEARANCE IN PREDICTING GLOMERULAR FILTRATION RATE. ESTIMATED GFR IS NOT APPLICABLE FOR DIALYSIS PATIENTS. HEPATIC FUNCTION [id number] 05:12:00 Test Item Value Reference Range Comments TOTAL PROTEIN (BEAKER) (test bnzg=500) 5.5 gm/dL 6.0-8.3 ALBUMIN (BEAKER) (test eyrn=9548) 2.9 g/dL 3.5-5.0 BILIRUBIN TOTAL (BEAKER) (test eudf=809) 1.3 mg/dL 0.2-1.2 BILIRUBIN DIRECT (BEAKER) (test hygf=238) 0.9 mg/dL 0.1-0.5 ALKALINE PHOSPHATASE (BEAKER) (test rbvb=438) 134 U/L 40-150 AST (SGOT) (BEAKER) (test fgvg=356) 45 U/L 5-34 ALT (SGPT) (BEAKER) (test bivz=115) 99 U/L 6-55 [id number] 05:01:00 Test Item Value Reference Range Comments PARTIAL THROMBOPLASTIN TIME (BEAKER) (test 31.5 seconds 22.5-36.0 zwnt=442) While on warfarinPROTHROMBIN [id number] 05:00:00 Test Item Value Reference Range Comments PROTIME (BEAKER) (test hlbw=394) 15.7 seconds 11.7-14.7 INR (BEAKER) (test gwoc=173) 1.2 <=5.9 RECOMMENDED COUMADIN/WARFARIN INR THERAPY RANGESSTANDARD DOSE: 2.0 - 3.0 Includes: PROPHYLAXIS forvenous thrombosis, systemic embolization; TREATMENT for venous thrombosis and/or pulmonary embolus.HIGH RISK: Target INR is 2.5-3.5 for patients with mechanical heart valves.While on warfarinCBC W/PLT COUNT &amp ; AUTO [id number] 04:52:00 Test Item Value Reference Range Comments WHITE BLOOD CELL COUNT (BEAKER) (test givc=875) 7.3 K/ L 3.5-10.5 RED BLOOD CELL COUNT (BEAKER) (test lgut=798) 2.73 M/ L 3.93-5.22 HEMOGLOBIN (BEAKER) (test dxiz=246) 7.7 GM/DL 11.2-15.7 HEMATOCRIT (BEAKER) (test vubu=815) 25.0 % 34.1-44.9 MEAN CORPUSCULAR VOLUME (BEAKER) (test inra=547) 91.6 fL 79.4-94.8 MEAN CORPUSCULAR HEMOGLOBIN (BEAKER) (test 28.2 pg 25.6-32.2 hqva=102) MEAN CORPUSCULAR HEMOGLOBIN CONC (BEAKER) (test 30.8 GM/DL 32.2-35.5 eudl=246) RED CELL DISTRIBUTION WIDTH (BEAKER) (test 16.4 % 11.7-14.4 utsm=159) PLATELET COUNT (BEAKER) (test uggd=854) 142 K/CU MM 150-450 MEAN PLATELET VOLUME (BEAKER) (test hwtf=945) 8.8 fL 9.4-12.3 NUCLEATED RED BLOOD CELLS (BEAKER) (test 0 /100 WBC 0-0 qzfb=110) NEUTROPHILS RELATIVE PERCENT (BEAKER) (test 71 % feri=905) LYMPHOCYTES RELATIVE PERCENT (BEAKER) (test 12 % ctfw=555) MONOCYTES RELATIVE PERCENT (BEAKER) (test 12 % htfw=764) EOSINOPHILS RELATIVE PERCENT (BEAKER) (test 3 % jnyr=452) BASOPHILS RELATIVE PERCENT (BEAKER) (test 0 % txdw=803) NEUTROPHILS ABSOLUTE COUNT (BEAKER) (test 5.12 K/ L 1.56-6.13 brfy=371) LYMPHOCYTES ABSOLUTE COUNT (BEAKER) (test 0.86 K/ L 1.18-3.74 xyri=373) MONOCYTES ABSOLUTE COUNT (BEAKER) (test 0.90 K/ L 0.24-0.36 qvno=983) EOSINOPHILS ABSOLUTE COUNT (BEAKER) (test 0.23 K/ L 0.04-0.36 amgs=937) BASOPHILS ABSOLUTE COUNT (BEAKER) (test 0.02 K/ L 0.01-0.08 pwkr=864) IMMATURE GRANULOCYTES-RELATIVE PERCENT (BEAKER) 2 % 0-1 (test axgc=4479) [id number] 12:54:00 Test Item Value Reference Range Comments PARTIAL THROMBOPLASTIN TIME (BEAKER) (test 67.5 seconds 22.5-36.0 rsxj=475) BASIC METABOLIC [id number] 07:06:00 Test Item Value Reference Range Comments SODIUM (BEAKER) (test 139 meq/L 136-145 ldkf=285) POTASSIUM (BEAKER) (test 3.8 meq/L 3.5-5.1 gbbh=390) CHLORIDE (BEAKER) (test 109 meq/L 98-107 xplq=335) CO2 (BEAKER) (test 20 meq/L 22-29 crje=686) BLOOD UREA NITROGEN 30 mg/dL 7-21 (BEAKER) (test jzzv=646) CREATININE (BEAKER) (test 1.20 mg/dL 0.57-1.25 xqnl=209) GLUCOSE RANDOM (BEAKER) 109 mg/dL 70-105 (test xtfe=410) CALCIUM (BEAKER) (test 8.4 mg/dL 8.4-10.2 gfrw=495) EGFR (BEAKER) (test 43 mL/min/1.73 sq m ESTIMATED GFR IS NOT danc=7258) ACCURATE CREATININE CLEARANCE IN PREDICTING GLOMERULAR FILTRATION RATE. ESTIMATED GFR IS NOT APPLICABLE FOR DIALYSIS PATIENTS. [id number] 07:06:00 Test Item Value Reference Range Comments MAGNESIUM (BEAKER) (test ufia=139) 2.0 mg/dL 1.6-2.6 [id number] 07:06:00 Test Item Value Reference Range Comments PHOSPHORUS (BEAKER) (test nveg=278) 4.3 mg/dL 2.3-4.7 HEPATIC FUNCTION [id number] 07:06:00 Test Item Value Reference Range Comments TOTAL PROTEIN (BEAKER) (test fpbr=520) 5.4 gm/dL 6.0-8.3 ALBUMIN (BEAKER) (test epbc=3888) 2.9 g/dL 3.5-5.0 BILIRUBIN TOTAL (BEAKER) (test dpch=130) 1.3 mg/dL 0.2-1.2 BILIRUBIN DIRECT (BEAKER) (test lrdy=675) 1.0 mg/dL 0.1-0.5 ALKALINE PHOSPHATASE (BEAKER) (test udfs=684) 139 U/L 40-150 AST (SGOT) (BEAKER) (test tgpc=067) 69 U/L 5-34 ALT (SGPT) (BEAKER) (test lrem=995) 121 U/L 6-55 [id number] 06:30:00 Test Item Value Reference Range Comments PARTIAL THROMBOPLASTIN TIME (BEAKER) (test 68.4 seconds 22.5-36.0 elnl=279) CALCIUM, [id number] 06:30:00 Test Item Value Reference Range Comments CALCIUM IONIZED (BEAKER) (test ijlu=372) 1.02 mmol/L 1.12-1.27 PH, BLOOD (BEAKER) (test bfvf=9407) 7.40 PROTHROMBIN [id number] 06:28:00 Test Item Value Reference Range Comments PROTIME (BEAKER) (test hncc=690) 16.1 seconds 11.7-14.7 INR (BEAKER) (test azvc=840) 1.3 <=5.9 RECOMMENDED COUMADIN/WARFARIN INR THERAPY RANGESSTANDARD DOSE: 2.0 - 3.0 Includes: PROPHYLAXIS forvenous thrombosis, systemic embolization; TREATMENT for venous thrombosis and/or pulmonary embolus.HIGH RISK: Target INR is 2.5-3.5 for patients with mechanical heart valves.CBC W/PLT COUNT & AUTO [id number] 06:27:00 Test Item Value Reference Range Comments WHITE BLOOD CELL COUNT (BEAKER) (test oikp=168) 8.3 K/ L 3.5-10.5 RED BLOOD CELL COUNT (BEAKER) (test hzgx=816) 2.73 M/ L 3.93-5.22 HEMOGLOBIN (BEAKER) (test cbnq=092) 7.7 GM/DL 11.2-15.7 HEMATOCRIT (BEAKER) (test yngy=290) 25.1 % 34.1-44.9 MEAN CORPUSCULAR VOLUME (BEAKER) (test retu=792) 91.9 fL 79.4-94.8 MEAN CORPUSCULAR HEMOGLOBIN (BEAKER) (test 28.2 pg 25.6-32.2 kknd=779) MEAN CORPUSCULAR HEMOGLOBIN CONC (BEAKER) (test 30.7 GM/DL 32.2-35.5 tqpa=448) RED CELL DISTRIBUTION WIDTH (BEAKER) (test 16.3 % 11.7-14.4 zlnk=148) PLATELET COUNT (BEAKER) (test vzif=816) 159 K/CU MM 150-450 MEAN PLATELET VOLUME (BEAKER) (test ztgm=144) 9.0 fL 9.4-12.3 NUCLEATED RED BLOOD CELLS (BEAKER) (test 0 /100 WBC 0-0 jtuz=141) NEUTROPHILS RELATIVE PERCENT (BEAKER) (test 76 % bnuj=976) LYMPHOCYTES RELATIVE PERCENT (BEAKER) (test 10 % wxho=146) MONOCYTES RELATIVE PERCENT (BEAKER) (test 11 % yfsa=702) EOSINOPHILS RELATIVE PERCENT (BEAKER) (test 1 % xxea=076) BASOPHILS RELATIVE PERCENT (BEAKER) (test 0 % ukzo=673) NEUTROPHILS ABSOLUTE COUNT (BEAKER) (test 6.33 K/ L 1.56-6.13 ciue=027) LYMPHOCYTES ABSOLUTE COUNT (BEAKER) (test 0.79 K/ L 1.18-3.74 umcm=658) MONOCYTES ABSOLUTE COUNT (BEAKER) (test 0.93 K/ L 0.24-0.36 sulf=815) EOSINOPHILS ABSOLUTE COUNT (BEAKER) (test 0.08 K/ L 0.04-0.36 sjwa=030) BASOPHILS ABSOLUTE COUNT (BEAKER) (test 0.01 K/ L 0.01-0.08 tcok=788) IMMATURE GRANULOCYTES-RELATIVE PERCENT (BEAKER) 2 % 0-1 (test qeta=5264) FL, [id number] 17:17:00INTRA OP IMAGINGReason for exam:->abnormal imagingFINAL REPORT Intraoperative fluoroscopy. CLINICAL HISTORY: abnormal imaging. FINDINGS: Six fluoroscopically acquired images were acquired by the referring physician. An intraoperative verbal report was not requested. Fluoroscopy was not performed by the undersigned. Fluoroscopy time: 523 seconds. Six images. Signed: Pelon Headley Verified Date/Time: 12/25/2018 17:17:24 Reading Location: [facility] C0W Consult Reading Room POCT- GLUCOSE [id number] 16:41:00 Test Item Value Reference Range Comments POC-GLUCOSE METER (BEAKER) 112 mg/dL 70-110 TESTED AT [facility] [address] [facility] (test mvnw=5706) [facility] [address] BLOOD [id number] 14:35:00 Test Item Value Reference Range Comments CULTURE (BEAKER) (test nhth=1326) No growth in 5 days [id number] 04:34:00 Test Item Value Reference Range Comments PHOSPHORUS (BEAKER) (test zkjm=010) 2.0 mg/dL 2.3-4.7 CALCIUM, [id number] 02:54:00 Test Item Value Reference Range Comments CALCIUM IONIZED (BEAKER) (test prkp=260) 1.08 mmol/L 1.12-1.27 PH, BLOOD (BEAKER) (test khwj=3924) 7.46 [id number] 02:31:00 Test Item Value Reference Range Comments MAGNESIUM (BEAKER) (test gqjs=054) 2.0 mg/dL 1.6-2.6 COMPREHENSIVE METABOLIC [id number] 02:31:00 Test Item Value Reference Range Comments TOTAL PROTEIN (BEAKER) 5.5 gm/dL 6.0-8.3 (test iktr=689) ALBUMIN (BEAKER) (test 2.8 g/dL 3.5-5.0 qspd=9957) ALKALINE PHOSPHATASE 161 U/L 40-150 (BEAKER) (test kcvs=344) BILIRUBIN TOTAL (BEAKER) 1.8 mg/dL 0.2-1.2 (test ifux=584) SODIUM (BEAKER) (test 137 meq/L 136-145 xkcc=441) POTASSIUM (BEAKER) (test 3.4 meq/L 3.5-5.1 dnma=202) CHLORIDE (BEAKER) (test 107 meq/L 98-107 hxio=405) CO2 (BEAKER) (test 21 meq/L 22-29 ctht=174) BLOOD UREA NITROGEN 24 mg/dL 7-21 (BEAKER) (test axil=936) CREATININE (BEAKER) (test 0.83 mg/dL 0.57-1.25 ufjf=521) GLUCOSE RANDOM (BEAKER) 91 mg/dL 70-105 (test rnns=098) CALCIUM (BEAKER) (test 8.7 mg/dL 8.4-10.2 rlyt=118) AST (SGOT) (BEAKER) (test 145 U/L 5-34 trag=091) ALT (SGPT) (BEAKER) (test 174 U/L 6-55 plpu=713) EGFR (BEAKER) (test 65 mL/min/1.73 sq m ESTIMATED GFR IS NOT cmls=3309) ACCURATE CREATININE CLEARANCE IN PREDICTING GLOMERULAR FILTRATION RATE. ESTIMATED GFR IS NOT APPLICABLE FOR DIALYSIS PATIENTS. [id number] 02:23:00 Test Item Value Reference Range Comments PARTIAL THROMBOPLASTIN TIME (BEAKER) (test 82.6 seconds 22.5-36.0 upvn=206) CBC W/PLT COUNT & AUTO [id number] 02:13:00 Test Item Value Reference Range Comments WHITE BLOOD CELL COUNT (BEAKER) (test tygr=344) 8.4 K/ L 3.5-10.5 RED BLOOD CELL COUNT (BEAKER) (test cowf=165) 2.73 M/ L 3.93-5.22 HEMOGLOBIN (BEAKER) (test sjmk=641) 7.7 GM/DL 11.2-15.7 HEMATOCRIT (BEAKER) (test ahwm=997) 25.0 % 34.1-44.9 MEAN CORPUSCULAR VOLUME (BEAKER) (test xued=331) 91.6 fL 79.4-94.8 MEAN CORPUSCULAR HEMOGLOBIN (BEAKER) (test 28.2 pg 25.6-32.2 yeum=963) MEAN CORPUSCULAR HEMOGLOBIN CONC (BEAKER) (test 30.8 GM/DL 32.2-35.5 wwry=368) RED CELL DISTRIBUTION WIDTH (BEAKER) (test 15.9 % 11.7-14.4 uukp=108) PLATELET COUNT (BEAKER) (test feea=088) 137 K/CU MM 150-450 MEAN PLATELET VOLUME (BEAKER) (test zhoc=241) 9.3 fL 9.4-12.3 NUCLEATED RED BLOOD CELLS (BEAKER) (test 0 /100 WBC 0-0 lomb=757) NEUTROPHILS RELATIVE PERCENT (BEAKER) (test 76 % vjut=648) LYMPHOCYTES RELATIVE PERCENT (BEAKER) (test 12 % pxex=361) MONOCYTES RELATIVE PERCENT (BEAKER) (test 10 % ghjx=563) EOSINOPHILS RELATIVE PERCENT (BEAKER) (test 1 % qdpo=340) BASOPHILS RELATIVE PERCENT (BEAKER) (test 0 % eeje=292) NEUTROPHILS ABSOLUTE COUNT (BEAKER) (test 6.38 K/ L 1.56-6.13 hski=363) LYMPHOCYTES ABSOLUTE COUNT (BEAKER) (test 0.96 K/ L 1.18-3.74 dpqb=405) MONOCYTES ABSOLUTE COUNT (BEAKER) (test 0.81 K/ L 0.24-0.36 kral=621) EOSINOPHILS ABSOLUTE COUNT (BEAKER) (test 0.11 K/ L 0.04-0.36 fpmb=614) BASOPHILS ABSOLUTE COUNT (BEAKER) (test 0.01 K/ L 0.01-0.08 yjva=813) IMMATURE GRANULOCYTES-RELATIVE PERCENT (BEAKER) 1 % 0-1 (test zpck=1724) [id number] 20:28:00 Test Item Value Reference Range Comments PARTIAL THROMBOPLASTIN TIME (BEAKER) (test 108.3 seconds 22.5-36.0 hoiv=196) FL, [id number] 13:09:00Reason for exam:->CBD imageryFLUOROSCOPIC UNIT UTILIZED-NO INTERPRETATION REQUESTED. HEPATIC FUNCTION [id number] 12:42:00 Test Item Value Reference Range Comments TOTAL PROTEIN (BEAKER) (test rvss=341) 5.9 gm/dL 6.0-8.3 ALBUMIN (BEAKER) (test iikt=0916) 3.1 g/dL 3.5-5.0 BILIRUBIN TOTAL (BEAKER) (test qfmv=332) 2.4 mg/dL 0.2-1.2 BILIRUBIN DIRECT (BEAKER) (test ctce=942) 1.8 mg/dL 0.1-0.5 ALKALINE PHOSPHATASE (BEAKER) (test nifp=302) 184 U/L 40-150 AST (SGOT) (BEAKER) (test onpa=762) 220 U/L 5-34 ALT (SGPT) (BEAKER) (test scwx=174) 215 U/L 6-55 [id number] 12:37:00 Test Item Value Reference Range Comments PARTIAL THROMBOPLASTIN TIME (BEAKER) (test 36.0 seconds 22.5-36.0 efmv=153) Prior to initiating [id number] 08:43:00 Test Item Value Reference Range Comments PHOSPHORUS (BEAKER) (test hxho=489) 1.9 mg/dL 2.3-4.7 [id number] 08:43:00 Test Item Value Reference Range Comments MAGNESIUM (BEAKER) (test xzye=020) 1.9 mg/dL 1.6-2.6 BASIC METABOLIC [id number] 08:43:00 Test Item Value Reference Range Comments SODIUM (BEAKER) (test 136 meq/L 136-145 hpmb=246) POTASSIUM (BEAKER) (test 3.6 meq/L 3.5-5.1 svui=529) CHLORIDE (BEAKER) (test 105 meq/L 98-107 krzy=837) CO2 (BEAKER) (test 24 meq/L 22-29 rvdk=323) BLOOD UREA NITROGEN 27 mg/dL 7-21 (BEAKER) (test gzed=169) CREATININE (BEAKER) (test 0.96 mg/dL 0.57-1.25 lnzj=897) GLUCOSE RANDOM (BEAKER) 96 mg/dL 70-105 (test kvfb=314) CALCIUM (BEAKER) (test 8.6 mg/dL 8.4-10.2 fbym=038) EGFR (BEAKER) (test 55 mL/min/1.73 sq m ESTIMATED GFR IS NOT adxk=0250) ACCURATE CREATININE CLEARANCE IN PREDICTING GLOMERULAR FILTRATION RATE. ESTIMATED GFR IS NOT APPLICABLE FOR DIALYSIS PATIENTS. Specimen slightly ictericPROTHROMBIN [id number] 08:37:00 Test Item Value Reference Range Comments PROTIME (BEAKER) (test zwpt=027) 18.7 seconds 11.7-14.7 INR (BEAKER) (test zukp=862) 1.6 <=5.9 RECOMMENDED COUMADIN/WARFARIN INR THERAPY RANGESSTANDARD DOSE: 2.0 - 3.0 Includes: PROPHYLAXIS forvenous thrombosis, systemic embolization; TREATMENT for venous thrombosis and/or pulmonary embolus.HIGH RISK: Target INR is 2.5-3.5 for patients with mechanical heart valves.CALCIUM, [id number] 08:31:00 Test Item Value Reference Range Comments CALCIUM IONIZED (BEAKER) (test nikd=230) 1.08 mmol/L 1.12-1.27 PH, BLOOD (BEAKER) (test iozi=6172) 7.40 CBC W/PLT COUNT & AUTO [id number] 08:29:00 Test Item Value Reference Range Comments WHITE BLOOD CELL COUNT (BEAKER) (test ipve=734) 9.1 K/ L 3.5-10.5 RED BLOOD CELL COUNT (BEAKER) (test mbfh=169) 2.91 M/ L 3.93-5.22 HEMOGLOBIN (BEAKER) (test lync=674) 8.2 GM/DL 11.2-15.7 HEMATOCRIT (BEAKER) (test zygm=489) 26.8 % 34.1-44.9 MEAN CORPUSCULAR VOLUME (BEAKER) (test qlkj=569) 92.1 fL 79.4-94.8 MEAN CORPUSCULAR HEMOGLOBIN (BEAKER) (test 28.2 pg 25.6-32.2 cloc=016) MEAN CORPUSCULAR HEMOGLOBIN CONC (BEAKER) (test 30.6 GM/DL 32.2-35.5 ofkv=905) RED CELL DISTRIBUTION WIDTH (BEAKER) (test 16.0 % 11.7-14.4 yfus=347) PLATELET COUNT (BEAKER) (test ylni=127) 137 K/CU MM 150-450 MEAN PLATELET VOLUME (BEAKER) (test htnu=542) 9.4 fL 9.4-12.3 NUCLEATED RED BLOOD CELLS (BEAKER) (test 0 /100 WBC 0-0 klcd=178) NEUTROPHILS RELATIVE PERCENT (BEAKER) (test 79 % vfrt=990) LYMPHOCYTES RELATIVE PERCENT (BEAKER) (test 10 % awkx=458) MONOCYTES RELATIVE PERCENT (BEAKER) (test 9 % pyba=150) EOSINOPHILS RELATIVE PERCENT (BEAKER) (test 1 % tjll=311) BASOPHILS RELATIVE PERCENT (BEAKER) (test 0 % mstm=724) NEUTROPHILS ABSOLUTE COUNT (BEAKER) (test 7.18 K/ L 1.56-6.13 xvqv=451) LYMPHOCYTES ABSOLUTE COUNT (BEAKER) (test 0.91 K/ L 1.18-3.74 iarm=076) MONOCYTES ABSOLUTE COUNT (BEAKER) (test 0.85 K/ L 0.24-0.36 nowv=763) EOSINOPHILS ABSOLUTE COUNT (BEAKER) (test 0.06 K/ L 0.04-0.36 dchv=451) BASOPHILS ABSOLUTE COUNT (BEAKER) (test 0.02 K/ L 0.01-0.08 slcg=056) IMMATURE GRANULOCYTES-RELATIVE PERCENT (BEAKER) 1 % 0-1 (test cjgo=6422) BLOOD [id number] 15:01:00 Test Item Value Reference Range Comments CULTURE (BEAKER) (test zyvh=2155) No growth in 5 days PROTHROMBIN [id number] 12:58:00 Test Item Value Reference Range Comments PROTIME (BEAKER) (test ktpe=831) 38.9 seconds 11.7-14.7 INR (BEAKER) (test ieec=282) 4.0 <=5.9 RECOMMENDED COUMADIN/WARFARIN INR THERAPY RANGESSTANDARD DOSE: 2.0 - 3.0 Includes: PROPHYLAXIS forvenous thrombosis, systemic embolization; TREATMENT for venous thrombosis and/or pulmonary embolus.HIGH RISK: Target INR is 2.5-3.5 for patients with mechanical heart valves.HEPATIC FUNCTION [id number] 10:41 :00 Test Item Value Reference Range Comments TOTAL PROTEIN (BEAKER) (test 6.2 gm/dL 6.0-8.3 Specimen moderately hemolyzed vjbi=613) ALBUMIN (BEAKER) (test 3.1 g/dL 3.5-5.0 Specimen moderately hemolyzed qtbd=5668) BILIRUBIN TOTAL (BEAKER) (test 4.3 mg/dL 0.2-1.2 Specimen moderately hemolyzed tovp=156) BILIRUBIN DIRECT (BEAKER) 2.8 mg/dL 0.1-0.5 Specimen moderately hemolyzed (test pleg=724) ALKALINE PHOSPHATASE (BEAKER) 196 U/L 40-150 (test zcgh=590) AST (SGOT) (BEAKER) (test 388 U/L 5-34 Specimen moderately hemolyzed vfpl=889) ALT (SGPT) (BEAKER) (test 239 U/L 6-55 Specimen moderately klyx=566) hemolyzed Specimen moderately ictericCALCIUM, [id number] 06:17:00 Test Item Value Reference Range Comments CALCIUM IONIZED (BEAKER) (test nkdt=743) 1.12 mmol/L 1.12-1.27 PH, BLOOD (BEAKER) (test xurn=3436) 7.48 [id number] 05:17:00 Test Item Value Reference Range Comments PARTIAL THROMBOPLASTIN TIME (BEAKER) (test 59.7 seconds 22.5-36.0 aene=202) [id number] 05:14:00 Test Item Value Reference Range Comments PHOSPHORUS (BEAKER) (test ndjx=593) 1.7 mg/dL 2.3-4.7 [id number] 05:14:00 Test Item Value Reference Range Comments MAGNESIUM (BEAKER) (test fplg=709) 1.9 mg/dL 1.6-2.6 BASIC METABOLIC [id number] 05:14:00 Test Item Value Reference Range Comments SODIUM (BEAKER) (test 139 meq/L 136-145 irva=010) POTASSIUM (BEAKER) (test 3.5 meq/L 3.5-5.1 jvsq=822) CHLORIDE (BEAKER) (test 108 meq/L 98-107 sdvq=140) CO2 (BEAKER) (test 25 meq/L 22-29 oesg=250) BLOOD UREA NITROGEN 24 mg/dL 7-21 (BEAKER) (test puze=049) CREATININE (BEAKER) (test 1.04 mg/dL 0.57-1.25 ytxf=831) GLUCOSE RANDOM (BEAKER) 94 mg/dL 70-105 (test uqoz=754) CALCIUM (BEAKER) (test 9.1 mg/dL 8.4-10.2 qaod=646) EGFR (BEAKER) (test 50 mL/min/1.73 sq m ESTIMATED GFR IS NOT toek=4320) ACCURATE CREATININE CLEARANCE IN PREDICTING GLOMERULAR FILTRATION RATE. ESTIMATED GFR IS NOT APPLICABLE FOR DIALYSIS PATIENTS. Specimen slightly ictericPROTHROMBIN [id number] 05:11:00 Test Item Value Reference Range Comments PROTIME (BEAKER) (test wdab=500) 35.4 seconds 11.7-14.7 INR (BEAKER) (test tfoy=925) 3.6 <=5.9 RECOMMENDED COUMADIN/WARFARIN INR THERAPY RANGESSTANDARD DOSE: 2.0 - 3.0 Includes: PROPHYLAXIS forvenous thrombosis, systemic embolization; TREATMENT for venous thrombosis and/or pulmonary embolus.HIGH RISK: Target INR is 2.5-3.5 for patients with mechanical heart valves.CBC W/PLT COUNT & AUTO [id number] 05:03:00 Test Item Value Reference Range Comments WHITE BLOOD CELL COUNT (BEAKER) (test flyr=287) 10.8 K/ L 3.5-10.5 RED BLOOD CELL COUNT (BEAKER) (test ilcv=980) 2.98 M/ L 3.93-5.22 HEMOGLOBIN (BEAKER) (test shds=079) 8.2 GM/DL 11.2-15.7 HEMATOCRIT (BEAKER) (test farq=980) 26.8 % 34.1-44.9 MEAN CORPUSCULAR VOLUME (BEAKER) (test aqfu=843) 89.9 fL 79.4-94.8 MEAN CORPUSCULAR HEMOGLOBIN (BEAKER) (test 27.5 pg 25.6-32.2 zqif=309) MEAN CORPUSCULAR HEMOGLOBIN CONC (BEAKER) (test 30.6 GM/DL 32.2-35.5 rlud=945) RED CELL DISTRIBUTION WIDTH (BEAKER) (test 15.4 % 11.7-14.4 wbjo=498) PLATELET COUNT (BEAKER) (test dgvb=745) 125 K/CU MM 150-450 MEAN PLATELET VOLUME (BEAKER) (test gtij=835) 9.8 fL 9.4-12.3 NUCLEATED RED BLOOD CELLS (BEAKER) (test 0 /100 WBC 0-0 efcr=116) NEUTROPHILS RELATIVE PERCENT (BEAKER) (test 83 % kiwb=084) LYMPHOCYTES RELATIVE PERCENT (BEAKER) (test 6 % cpgv=350) MONOCYTES RELATIVE PERCENT (BEAKER) (test 10 % unpg=324) EOSINOPHILS RELATIVE PERCENT (BEAKER) (test 0 % zdwr=313) BASOPHILS RELATIVE PERCENT (BEAKER) (test 0 % utqw=862) NEUTROPHILS ABSOLUTE COUNT (BEAKER) (test 8.94 K/ L 1.56-6.13 wmwi=428) LYMPHOCYTES ABSOLUTE COUNT (BEAKER) (test 0.69 K/ L 1.18-3.74 xyle=952) MONOCYTES ABSOLUTE COUNT (BEAKER) (test 1.02 K/ L 0.24-0.36 vuua=271) EOSINOPHILS ABSOLUTE COUNT (BEAKER) (test 0.01 K/ L 0.04-0.36 bctf=289) BASOPHILS ABSOLUTE COUNT (BEAKER) (test 0.01 K/ L 0.01-0.08 zjqw=280) IMMATURE GRANULOCYTES-RELATIVE PERCENT (BEAKER) 1 % 0-1 (test jexk=5710) [id number] 06:11:00 Test Item Value Reference Range Comments PHOSPHORUS (BEAKER) (test iptk=291) 3.0 mg/dL 2.3-4.7 [id number] 06:11:00 Test Item Value Reference Range Comments MAGNESIUM (BEAKER) (test lfhp=516) 1.6 mg/dL 1.6-2.6 BASIC METABOLIC [id number] 06:11:00 Test Item Value Reference Range Comments SODIUM (BEAKER) (test 137 meq/L 136-145 zkur=473) POTASSIUM (BEAKER) (test 4.1 meq/L 3.5-5.1 oiiw=218) CHLORIDE (BEAKER) (test 104 meq/L 98-107 ufmn=139) CO2 (BEAKER) (test 16 meq/L 22-29 razi=969) BLOOD UREA NITROGEN 14 mg/dL 7-21 (BEAKER) (test mzfb=077) CREATININE (BEAKER) (test 0.96 mg/dL 0.57-1.25 oahi=842) GLUCOSE RANDOM (BEAKER) 141 mg/dL 70-105 (test abvt=193) CALCIUM (BEAKER) (test 9.9 mg/dL 8.4-10.2 qfsx=496) EGFR (BEAKER) (test 55 mL/min/1.73 sq m ESTIMATED GFR IS NOT wwqk=0263) ACCURATE CREATININE CLEARANCE IN PREDICTING GLOMERULAR FILTRATION RATE. ESTIMATED GFR IS NOT APPLICABLE FOR DIALYSIS PATIENTS. Specimen slightly ictericCALCIUM, [id number] 05:59:00 Test Item Value Reference Range Comments CALCIUM IONIZED (BEAKER) (test sqyh=660) 0.89 mmol/L 1.12-1.27 PH, BLOOD (BEAKER) (test focx=5804) 7.48 [id number] 05:52:00 Test Item Value Reference Range Comments PARTIAL THROMBOPLASTIN TIME (BEAKER) (test 84.0 seconds 22.5-36.0 mpon=276) PROTHROMBIN [id number] 05:51:00 Test Item Value Reference Range Comments PROTIME (BEAKER) (test tqmu=997) 26.9 seconds 11.7-14.7 INR (BEAKER) (test loia=867) 2.5 <=5.9 RECOMMENDED COUMADIN/WARFARIN INR THERAPY RANGESSTANDARD DOSE: 2.0 - 3.0 Includes: PROPHYLAXIS forvenous thrombosis, systemic embolization; TREATMENT for venous thrombosis and/or pulmonary embolus.HIGH RISK: Target INR is 2.5-3.5 for patients with mechanical heart valves.CBC W/PLT COUNT & AUTO [id number] 05:51:00 Test Item Value Reference Range Comments WHITE BLOOD CELL COUNT (BEAKER) (test hwsm=157) 12.7 K/ L 3.5-10.5 RED BLOOD CELL COUNT (BEAKER) (test orxq=483) 3.57 M/ L 3.93-5.22 HEMOGLOBIN (BEAKER) (test bxjh=249) 9.9 GM/DL 11.2-15.7 HEMATOCRIT (BEAKER) (test ncot=969) 32.1 % 34.1-44.9 MEAN CORPUSCULAR VOLUME (BEAKER) (test jimh=735) 89.9 fL 79.4-94.8 MEAN CORPUSCULAR HEMOGLOBIN (BEAKER) (test 27.7 pg 25.6-32.2 rzws=921) MEAN CORPUSCULAR HEMOGLOBIN CONC (BEAKER) (test 30.8 GM/DL 32.2-35.5 yzky=178) RED CELL DISTRIBUTION WIDTH (BEAKER) (test 14.7 % 11.7-14.4 fwpw=727) PLATELET COUNT (BEAKER) (test ghjq=730) 153 K/CU MM 150-450 MEAN PLATELET VOLUME (BEAKER) (test kvam=259) 9.9 fL 9.4-12.3 NUCLEATED RED BLOOD CELLS (BEAKER) (test 0 /100 WBC 0-0 iqxi=274) NEUTROPHILS RELATIVE PERCENT (BEAKER) (test 82 % tnsn=956) LYMPHOCYTES RELATIVE PERCENT (BEAKER) (test 5 % dhqd=469) MONOCYTES RELATIVE PERCENT (BEAKER) (test 11 % ohcg=130) EOSINOPHILS RELATIVE PERCENT (BEAKER) (test 0 % jxjy=083) BASOPHILS RELATIVE PERCENT (BEAKER) (test 0 % bgth=759) NEUTROPHILS ABSOLUTE COUNT (BEAKER) (test 10.44 K/ L 1.56-6.13 shgd=613) LYMPHOCYTES ABSOLUTE COUNT (BEAKER) (test 0.69 K/ L 1.18-3.74 nfhl=687) MONOCYTES ABSOLUTE COUNT (BEAKER) (test 1.44 K/ L 0.24-0.36 gawf=846) EOSINOPHILS ABSOLUTE COUNT (BEAKER) (test 0.01 K/ L 0.04-0.36 ywkx=003) BASOPHILS ABSOLUTE COUNT (BEAKER) (test 0.02 K/ L 0.01-0.08 zica=207) IMMATURE GRANULOCYTES-RELATIVE PERCENT (BEAKER) 1 % 0-1 (test zrie=1068) [id number] 22:30:00 Test Item Value Reference Range Comments PARTIAL THROMBOPLASTIN TIME (BEAKER) (test 106.8 seconds 22.5-36.0 betg=041) [id number] 14:14:00 Test Item Value Reference Range Comments PARTIAL THROMBOPLASTIN TIME (BEAKER) (test 45.6 seconds 22.5-36.0 ineg=411) Prior to initiating heparinVITAMIN B12 AND [id number] 06:22:00 Test Item Value Reference Range Comments VITAMIN B12 (BEAKER) (test hhvv=609) 1923 pg/mL 213-816 FOLATE (BEAKER) (test jqdg=267) 17.5 ng/mL >=7.0 [id number] 06:18:00 Test Item Value Reference Range Comments PHOSPHORUS (BEAKER) (test tmvr=954) 2.5 mg/dL 2.3-4.7 [id number] 06:18:00 Test Item Value Reference Range Comments MAGNESIUM (BEAKER) (test kitd=748) 1.6 mg/dL 1.6-2.6 BASIC METABOLIC [id number] 06:18:00 Test Item Value Reference Range Comments SODIUM (BEAKER) (test 136 meq/L 136-145 tsmq=156) POTASSIUM (BEAKER) (test 4.0 meq/L 3.5-5.1 yppw=881) CHLORIDE (BEAKER) (test 104 meq/L 98-107 kzop=553) CO2 (BEAKER) (test 23 meq/L 22-29 lnht=114) BLOOD UREA NITROGEN 11 mg/dL 7-21 (BEAKER) (test qdqf=215) CREATININE (BEAKER) (test 0.92 mg/dL 0.57-1.25 xdnd=121) GLUCOSE RANDOM (BEAKER) 87 mg/dL 70-105 (test hmxd=864) CALCIUM (BEAKER) (test 8.9 mg/dL 8.4-10.2 rezb=239) EGFR (BEAKER) (test 58 mL/min/1.73 sq m ESTIMATED GFR IS NOT veqo=9411) ACCURATE CREATININE CLEARANCE IN PREDICTING GLOMERULAR FILTRATION RATE. ESTIMATED GFR IS NOT APPLICABLE FOR DIALYSIS PATIENTS. IRON, TIBC, % SAT. (WITHOUT FERRITIN)2018-12-21 05:46:00 Test Item Value Reference Range Comments IRON (BEAKER) (test hqjb=974) 36.0 ug/dL 40.0-160.0 TOTAL IRON BINDING CAPACITY (BEAKER) (test 291 ug/dL 250-450 wqpz=962) IRON % SATURATION (2) (BEAKER) (test tuxo=9149) 12 % 20-55 CBC W/PLT COUNT & AUTO [id number] 05:43:00 Test Item Value Reference Range Comments WHITE BLOOD CELL COUNT (BEAKER) (test judl=040) 5.4 K/ L 3.5-10.5 RED BLOOD CELL COUNT (BEAKER) (test eiiz=997) 2.92 M/ L 3.93-5.22 HEMOGLOBIN (BEAKER) (test lbfb=256) 8.1 GM/DL 11.2-15.7 HEMATOCRIT (BEAKER) (test rout=454) 26.8 % 34.1-44.9 MEAN CORPUSCULAR VOLUME (BEAKER) (test zfup=626) 91.8 fL 79.4-94.8 MEAN CORPUSCULAR HEMOGLOBIN (BEAKER) (test 27.7 pg 25.6-32.2 qmly=657) MEAN CORPUSCULAR HEMOGLOBIN CONC (BEAKER) (test 30.2 GM/DL 32.2-35.5 yyaz=071) RED CELL DISTRIBUTION WIDTH (BEAKER) (test 14.6 % 11.7-14.4 gxoe=101) PLATELET COUNT (BEAKER) (test fipl=082) 108 K/CU MM 150-450 MEAN PLATELET VOLUME (BEAKER) (test xdbr=244) 9.5 fL 9.4-12.3 NUCLEATED RED BLOOD CELLS (BEAKER) (test 0 /100 WBC 0-0 mayi=244) NEUTROPHILS RELATIVE PERCENT (BEAKER) (test 65 % qume=108) LYMPHOCYTES RELATIVE PERCENT (BEAKER) (test 19 % lgtr=187) MONOCYTES RELATIVE PERCENT (BEAKER) (test 13 % kien=442) EOSINOPHILS RELATIVE PERCENT (BEAKER) (test 2 % oqej=754) BASOPHILS RELATIVE PERCENT (BEAKER) (test 0 % ekec=062) NEUTROPHILS ABSOLUTE COUNT (BEAKER) (test 3.48 K/ L 1.56-6.13 efkw=748) LYMPHOCYTES ABSOLUTE COUNT (BEAKER) (test 1.03 K/ L 1.18-3.74 wiej=814) MONOCYTES ABSOLUTE COUNT (BEAKER) (test 0.72 K/ L 0.24-0.36 xtnt=342) EOSINOPHILS ABSOLUTE COUNT (BEAKER) (test 0.10 K/ L 0.04-0.36 rrtx=631) BASOPHILS ABSOLUTE COUNT (BEAKER) (test 0.01 K/ L 0.01-0.08 gqpd=201) IMMATURE GRANULOCYTES-RELATIVE PERCENT (BEAKER) 0 % 0-1 (test nazm=4777) PROTHROMBIN [id number] 05:38:00 Test Item Value Reference Range Comments PROTIME (BEAKER) (test areh=382) 27.8 seconds 11.7-14.7 INR (BEAKER) (test axpp=785) 2.6 <=5.9 RECOMMENDED COUMADIN/WARFARIN INR THERAPY RANGESSTANDARD DOSE: 2.0 - 3.0 Includes: PROPHYLAXIS forvenous thrombosis, systemic embolization; TREATMENT for venous thrombosis and/or pulmonary embolus.HIGH RISK: Target INR is 2.5-3.5 for patients with mechanical heart valves.CALCIUM, [id number] 05:24:00 Test Item Value Reference Range Comments CALCIUM IONIZED (BEAKER) (test atdv=370) 1.02 mmol/L 1.12-1.27 PH, BLOOD (BEAKER) (test toam=1400) 7.44 CBC W/PLT COUNT & AUTO [id number] 07:25:00 Test Item Value Reference Range Comments WHITE BLOOD CELL COUNT (BEAKER) (test mrmg=675) 6.3 K/ L 3.5-10.5 RED BLOOD CELL COUNT (BEAKER) (test rhvp=410) 2.96 M/ L 3.93-5.22 HEMOGLOBIN (BEAKER) (test xmgr=672) 8.3 GM/DL 11.2-15.7 HEMATOCRIT (BEAKER) (test pnhy=241) 27.1 % 34.1-44.9 MEAN CORPUSCULAR VOLUME (BEAKER) (test sqwq=536) 91.6 fL 79.4-94.8 MEAN CORPUSCULAR HEMOGLOBIN (BEAKER) (test 28.0 pg 25.6-32.2 xdeo=094) MEAN CORPUSCULAR HEMOGLOBIN CONC (BEAKER) (test 30.6 GM/DL 32.2-35.5 jtwa=353) RED CELL DISTRIBUTION WIDTH (BEAKER) (test 14.8 % 11.7-14.4 khuz=352) PLATELET COUNT (BEAKER) (test nduh=541) 114 K/CU MM 150-450 MEAN PLATELET VOLUME (BEAKER) (test gvgg=380) 9.9 fL 9.4-12.3 NUCLEATED RED BLOOD CELLS (BEAKER) (test 0 /100 WBC 0-0 dwhh=745) NEUTROPHILS RELATIVE PERCENT (BEAKER) (test 63 % ovcw=083) LYMPHOCYTES RELATIVE PERCENT (BEAKER) (test 18 % oxpl=034) MONOCYTES RELATIVE PERCENT (BEAKER) (test 16 % ioqw=736) EOSINOPHILS RELATIVE PERCENT (BEAKER) (test 2 % aijz=036) BASOPHILS RELATIVE PERCENT (BEAKER) (test 0 % urmb=440) NEUTROPHILS ABSOLUTE COUNT (BEAKER) (test 4.00 K/ L 1.56-6.13 obga=729) LYMPHOCYTES ABSOLUTE COUNT (BEAKER) (test 1.12 K/ L 1.18-3.74 dest=671) MONOCYTES ABSOLUTE COUNT (BEAKER) (test 1.01 K/ L 0.24-0.36 ijiz=034) EOSINOPHILS ABSOLUTE COUNT (BEAKER) (test 0.15 K/ L 0.04-0.36 rudk=753) BASOPHILS ABSOLUTE COUNT (BEAKER) (test 0.01 K/ L 0.01-0.08 mxwq=564) IMMATURE GRANULOCYTES-RELATIVE PERCENT (BEAKER) 1 % 0-1 (test sbpp=3747) [id number] 07:10:00 Test Item Value Reference Range Comments PHOSPHORUS (BEAKER) (test qvlh=945) 3.0 mg/dL 2.3-4.7 [id number] 07:10:00 Test Item Value Reference Range Comments MAGNESIUM (BEAKER) (test sexr=222) 1.9 mg/dL 1.6-2.6 COMPREHENSIVE METABOLIC [id number] 07:10:00 Test Item Value Reference Range Comments TOTAL PROTEIN (BEAKER) 5.7 gm/dL 6.0-8.3 (test tqow=935) ALBUMIN (BEAKER) (test 3.1 g/dL 3.5-5.0 jqky=4630) ALKALINE PHOSPHATASE 103 U/L 40-150 (BEAKER) (test cxxo=869) BILIRUBIN TOTAL (BEAKER) 1.4 mg/dL 0.2-1.2 (test vmzm=887) SODIUM (BEAKER) (test 137 meq/L 136-145 icih=080) POTASSIUM (BEAKER) (test 4.0 meq/L 3.5-5.1 igvg=442) CHLORIDE (BEAKER) (test 106 meq/L 98-107 axns=697) CO2 (BEAKER) (test 24 meq/L 22-29 cofs=933) BLOOD UREA NITROGEN 16 mg/dL 7-21 (BEAKER) (test ihmw=922) CREATININE (BEAKER) (test 0.95 mg/dL 0.57-1.25 rord=981) GLUCOSE RANDOM (BEAKER) 86 mg/dL 70-105 (test umtu=797) CALCIUM (BEAKER) (test 8.9 mg/dL 8.4-10.2 wtzr=831) AST (SGOT) (BEAKER) (test 130 U/L 5-34 vhep=091) ALT (SGPT) (BEAKER) (test 79 U/L 6-55 pguw=836) EGFR (BEAKER) (test 56 mL/min/1.73 sq m ESTIMATED GFR IS NOT bdok=0080) ACCURATE CREATININE CLEARANCE IN PREDICTING GLOMERULAR FILTRATION RATE. ESTIMATED GFR IS NOT APPLICABLE FOR DIALYSIS PATIENTS. COMPREHENSIVE METABOLIC [id number] 07:06:00 Test Item Value Reference Range Comments TOTAL PROTEIN (BEAKER) 5.8 gm/dL 6.0-8.3 (test vqjv=696) ALBUMIN (BEAKER) (test 3.1 g/dL 3.5-5.0 ijrn=1749) ALKALINE PHOSPHATASE 103 U/L 40-150 (BEAKER) (test rtzp=225) BILIRUBIN TOTAL (BEAKER) 1.4 mg/dL 0.2-1.2 (test mygk=770) SODIUM (BEAKER) (test 137 meq/L 136-145 cwnp=895) POTASSIUM (BEAKER) (test 4.1 meq/L 3.5-5.1 lycf=080) CHLORIDE (BEAKER) (test 107 meq/L 98-107 yiig=291) CO2 (BEAKER) (test 24 meq/L 22-29 frwm=786) BLOOD UREA NITROGEN 16 mg/dL 7-21 (BEAKER) (test zuer=203) CREATININE (BEAKER) (test 0.94 mg/dL 0.57-1.25 rjxu=770) GLUCOSE RANDOM (BEAKER) 88 mg/dL 70-105 (test nnce=050) CALCIUM (BEAKER) (test 8.9 mg/dL 8.4-10.2 xveg=036) AST (SGOT) (BEAKER) (test 130 U/L 5-34 fdee=496) ALT (SGPT) (BEAKER) (test 80 U/L 6-55 mtwn=444) EGFR (BEAKER) (test 56 mL/min/1.73 sq m ESTIMATED GFR IS NOT tnip=1046) ACCURATE CREATININE CLEARANCE IN PREDICTING GLOMERULAR FILTRATION RATE. ESTIMATED GFR IS NOT APPLICABLE FOR DIALYSIS PATIENTS. CALCIUM, [id number] 06:28:00 Test Item Value Reference Range Comments CALCIUM IONIZED (BEAKER) (test escf=930) 1.08 mmol/L 1.12-1.27 PH, BLOOD (BEAKER) (test yyoa=8131) 7.45 PROTHROMBIN [id number] 06:23:00 Test Item Value Reference Range Comments PROTIME (BEAKER) (test qxtz=923) 32.2 seconds 11.7-14.7 INR (BEAKER) (test dclt=055) 3.1 <=5.9 RECOMMENDED COUMADIN/WARFARIN INR THERAPY RANGESSTANDARD DOSE: 2.0 - 3.0 Includes: PROPHYLAXIS forvenous thrombosis, systemic embolization; TREATMENT for venous thrombosis and/or pulmonary embolus.HIGH RISK: Target INR is 2.5-3.5 for patients with mechanical heart valves.[id number] 16:53:00 Test Item Value Reference Range Comments LIPASE (BEAKER) (test uwda=156) 28 U/L 8-78 HEPATIC FUNCTION [id number] 13:12:00 Test Item Value Reference Range Comments TOTAL PROTEIN (BEAKER) (test lzvy=803) 5.9 gm/dL 6.0-8.3 ALBUMIN (BEAKER) (test wtex=9559) 3.3 g/dL 3.5-5.0 BILIRUBIN TOTAL (BEAKER) (test bfkv=389) 0.9 mg/dL 0.2-1.2 BILIRUBIN DIRECT (BEAKER) (test gkna=150) 0.5 mg/dL 0.1-0.5 ALKALINE PHOSPHATASE (BEAKER) (test grbd=121) 90 U/L 40-150 AST (SGOT) (BEAKER) (test selz=403) 76 U/L 5-34 ALT (SGPT) (BEAKER) (test oepn=186) 61 U/L 6-55 CBC W/PLT COUNT & AUTO [id number] 08:40:00 Test Item Value Reference Range Comments WHITE BLOOD CELL COUNT (BEAKER) (test lqse=569) 6.6 K/ L 3.5-10.5 RED BLOOD CELL COUNT (BEAKER) (test ghym=484) 3.15 M/ L 3.93-5.22 HEMOGLOBIN (BEAKER) (test thon=204) 8.8 GM/DL 11.2-15.7 HEMATOCRIT (BEAKER) (test hlcg=481) 28.3 % 34.1-44.9 MEAN CORPUSCULAR VOLUME (BEAKER) (test crql=723) 89.8 fL 79.4-94.8 MEAN CORPUSCULAR HEMOGLOBIN (BEAKER) (test 27.9 pg 25.6-32.2 kugs=547) MEAN CORPUSCULAR HEMOGLOBIN CONC (BEAKER) (test 31.1 GM/DL 32.2-35.5 ximq=766) RED CELL DISTRIBUTION WIDTH (BEAKER) (test 14.9 % 11.7-14.4 keox=035) PLATELET COUNT (BEAKER) (test ddcn=797) 125 K/CU MM 150-450 MEAN PLATELET VOLUME (BEAKER) (test ubrj=941) 10.4 fL 9.4-12.3 NUCLEATED RED BLOOD CELLS (BEAKER) (test 0 /100 WBC 0-0 pgse=796) NEUTROPHILS RELATIVE PERCENT (BEAKER) (test 62 % onye=452) LYMPHOCYTES RELATIVE PERCENT (BEAKER) (test 19 % psdp=523) MONOCYTES RELATIVE PERCENT (BEAKER) (test 15 % drut=315) EOSINOPHILS RELATIVE PERCENT (BEAKER) (test 2 % xsad=171) BASOPHILS RELATIVE PERCENT (BEAKER) (test 0 % mqtv=471) NEUTROPHILS ABSOLUTE COUNT (BEAKER) (test 4.14 K/ L 1.56-6.13 agsm=778) LYMPHOCYTES ABSOLUTE COUNT (BEAKER) (test 1.29 K/ L 1.18-3.74 xnlr=205) MONOCYTES ABSOLUTE COUNT (BEAKER) (test 0.98 K/ L 0.24-0.36 lvie=411) EOSINOPHILS ABSOLUTE COUNT (BEAKER) (test 0.14 K/ L 0.04-0.36 hlkw=164) BASOPHILS ABSOLUTE COUNT (BEAKER) (test 0.02 K/ L 0.01-0.08 xklq=328) IMMATURE GRANULOCYTES-RELATIVE PERCENT (BEAKER) 1 % 0-1 (test hfvi=3816) PROTHROMBIN [id number] 06:00:00 Test Item Value Reference Range Comments PROTIME (BEAKER) (test zugn=900) 36.4 seconds 11.7-14.7 INR (BEAKER) (test esqw=070) 3.7 <=5.9 RECOMMENDED COUMADIN/WARFARIN INR THERAPY RANGESSTANDARD DOSE: 2.0 - 3.0 Includes: PROPHYLAXIS forvenous thrombosis, systemic embolization; TREATMENT for venous thrombosis and/or pulmonary embolus.HIGH RISK: Target INR is 2.5-3.5 for patients with mechanical heart valves.CALCIUM, [id number] 05:58:00 Test Item Value Reference Range Comments CALCIUM IONIZED (BEAKER) (test hlby=585) 1.10 mmol/L 1.12-1.27 PH, BLOOD (BEAKER) (test mjun=6147) 7.44 [id number] 05:55:00 Test Item Value Reference Range Comments PHOSPHORUS (BEAKER) (test wjxk=214) 2.7 mg/dL 2.3-4.7 [id number] 05:55:00 Test Item Value Reference Range Comments MAGNESIUM (BEAKER) (test hxox=347) 1.7 mg/dL 1.6-2.6 BASIC METABOLIC [id number] 05:55:00 Test Item Value Reference Range Comments SODIUM (BEAKER) (test 139 meq/L 136-145 dzwd=614) POTASSIUM (BEAKER) (test 4.2 meq/L 3.5-5.1 tyke=144) CHLORIDE (BEAKER) (test 107 meq/L 98-107 truk=464) CO2 (BEAKER) (test 26 meq/L 22-29 skpm=408) BLOOD UREA NITROGEN 22 mg/dL 7-21 (BEAKER) (test ssmg=115) CREATININE (BEAKER) (test 0.95 mg/dL 0.57-1.25 xykg=493) GLUCOSE RANDOM (BEAKER) 88 mg/dL 70-105 (test xmuf=924) CALCIUM (BEAKER) (test 9.3 mg/dL 8.4-10.2 vlqo=319) EGFR (BEAKER) (test 56 mL/min/1.73 sq m ESTIMATED GFR IS NOT mler=4982) ACCURATE CREATININE CLEARANCE IN PREDICTING GLOMERULAR FILTRATION RATE. ESTIMATED GFR IS NOT APPLICABLE FOR DIALYSIS PATIENTS. URINALYSIS W/ REFLEX URINE [id number] 16:41:00 Test Item Value Reference Range Comments COLOR (BEAKER) (test pame=860) Yellow CLARITY (BEAKER) (test hqmv=561) Clear SPECIFIC GRAVITY UA (BEAKER) (test kawl=076) 1.018 1.001-1.035 PH UA (BEAKER) (test xikk=438) 5.5 5.0-8.0 PROTEIN UA (BEAKER) (test trwc=855) Negative Negative GLUCOSE UA (BEAKER) (test qrbx=655) Negative Negative KETONES UA (BEAKER) (test bfzx=336) Negative Negative BILIRUBIN UA (BEAKER) (test jbcy=866) Negative Negative BLOOD UA (BEAKER) (test ddcx=023) Trace Negative NITRITE UA (BEAKER) (test glea=963) Negative Negative LEUKOCYTE ESTERASE UA (BEAKER) (test yomm=334) Negative Negative UROBILINOGEN UA (BEAKER) (test ssmo=442) 0.2 mg/dL 0.2-1.0 RBC UA (BEAKER) (test hkbp=305) 2 /HPF WBC UA (BEAKER) (test wefd=336) 1 /HPF MUCUS (BEAKER) (test dtsp=0103) Rare HYALINE CASTS (BEAKER) (test hbak=781) 1 /LPF SOURCE(BEAKER) (test ngqw=3118) RAD, CHEST, PA OR AP, 1 [id number] 12:53:00Reason for exam:->eval for feverFINAL REPORT Portable chest. HISTORY: Evaluate for fever. [...] short term imaging follow-up could be made toexclude other etiologies. Signed: Pelon Headley MDReport Verified Date/Time: 2018 12:53:56Reading Location: [address] Consult Reading Room PROTHROMBIN [id number] 08:32:00 Test Item Value Reference Range Comments PROTIME (BEAKER) (test jizy=210) 43.2 seconds 11.7-14.7 INR (BEAKER) (test tmnr=661) 4.6 <=5.9 RECOMMENDED COUMADIN/WARFARIN INR THERAPY RANGESSTANDARD DOSE: 2.0 - 3.0 Includes: PROPHYLAXIS forvenous thrombosis, systemic embolization; TREATMENT for venous thrombosis and/or pulmonary embolus.HIGH RISK: Target INR is 2.5-3.5 for patients with mechanical heart valves.U/S, ABDOMINAL, [id number] 05: 59:00Abdomen limited area? Add comment if clarification is needed.->Gall Bladder Reason for exam:->RUQ abd pain, abnormal LFT, r/o CBD stones or dialtion Should this be performed at the bedside?->NoFINAL REPORT INDICATION: RUQ abd pain, abnormal LFT, r/o CBD stones or dialtion COMPARISON: None TECHNIQUE: Real-time transabdominal perry scale and color Doppler ultrasound of the abdominal right upper quadrant. FINDINGS:Liver: Size: 13.7cm. Echogenicity: Normal. Masses/lesions: None. Surface Nodularity: None. Intrahepatic bile ducts: Normal. Commonbile duct: 1.0cm. Echogenic material is present within the CBD without shadowing. This may conceivably represent a nonshadowing stone. No internal vascularity is identified to suggest neoplasm. MPV: 1.1cm. Gallbladder: Stones: Echogenic focus within the gallbladder which demonstrates mobilitymeasuring up to 1.4 cm favored to represent a nonshadowing gallstone. Sludge: Minimal sludge. Wall thickness: 0.3 cm. The gallbladder is nondistended. Pericholecystic fluid: None. Sonographic Stewart's sign: Absent. Pancreas: Not well-seen due to bowel gas Right kidney: Size: 10.7 x 4.5 x 5.9 cm. Renal cortical thickness is 1.0 cm. Parenchyma: Normal echogenicity. No cysts. Nostones. Hydronephrosis: None. Ascites: None. Regional Vasculature: The visible abdominal aorta, IVC and hepatic veins are patent. Additional Findings: None. IMPRESSION: Mobile gallstone measuringabout 1.4 cm is present within the gallbladder lumen. Common bile duct is dilated up to 1 cm. Echogenic focus is noted within the bile duct without internal vascularity or shadowing. This is favored torepresent a nonshadowing gallstone. Correlation with MRCP is recommended if there is concern for biliary obstruction. Signed: Markel Hutchison MDReport Verified Date/Time: 12/18/2018 05:59:45 Reading Location: [address] Neuro Reading Room PROTHROMBIN [id number] 12:10:00 Test Item Value Reference Range Comments PROTIME (BEAKER) (test ahxa=471) 34.0 seconds 11.7-14.7 INR (BEAKER) (test xaar=603) 3.4 <=5.9 RECOMMENDED COUMADIN/WARFARIN INR THERAPY RANGESSTANDARD DOSE: 2.0 - 3.0 Includes: PROPHYLAXIS forvenous thrombosis, systemic embolization; TREATMENT for venous thrombosis and/or pulmonary embolus.HIGH RISK: Target INR is 2.5-3.5 for patients with mechanical heart valves.COMPREHENSIVE METABOLIC [id number] 11:59:00 Test Item Value Reference Range Comments TOTAL PROTEIN (BEAKER) 6.4 gm/dL 6.0-8.3 (test vzus=203) ALBUMIN (BEAKER) (test 3.7 g/dL 3.5-5.0 aplb=4178) ALKALINE PHOSPHATASE 96 U/L 40-150 (BEAKER) (test tzgj=261) BILIRUBIN TOTAL (BEAKER) 1.2 mg/dL 0.2-1.2 (test kikw=502) SODIUM (BEAKER) (test 137 meq/L 136-145 qlvy=060) POTASSIUM (BEAKER) (test 4.1 meq/L 3.5-5.1 dxbn=847) CHLORIDE (BEAKER) (test 103 meq/L 98-107 pvjo=064) CO2 (BEAKER) (test 26 meq/L 22-29 krur=220) BLOOD UREA NITROGEN 17 mg/dL 7-21 (BEAKER) (test qmao=487) CREATININE (BEAKER) (test 0.84 mg/dL 0.57-1.25 rwse=155) GLUCOSE RANDOM (BEAKER) 100 mg/dL 70-105 (test lraa=424) CALCIUM (BEAKER) (test 9.6 mg/dL 8.4-10.2 kkpn=926) AST (SGOT) (BEAKER) (test 219 U/L 5-34 rbeb=022) ALT (SGPT) (BEAKER) (test 99 U/L 6-55 epxw=318) EGFR (BEAKER) (test 64 mL/min/1.73 sq m ESTIMATED GFR IS NOT djcf=2314) ACCURATE CREATININE CLEARANCE IN PREDICTING GLOMERULAR FILTRATION RATE. ESTIMATED GFR IS NOT APPLICABLE FOR DIALYSIS PATIENTS. CBC W/PLT COUNT & AUTO [id number] 11:47:00 Test Item Value Reference Range Comments WHITE BLOOD CELL COUNT (BEAKER) (test jwvn=793) 9.2 K/ L 3.5-10.5 RED BLOOD CELL COUNT (BEAKER) (test gdjs=385) 3.40 M/ L 3.93-5.22 HEMOGLOBIN (BEAKER) (test mbck=255) 9.4 GM/DL 11.2-15.7 HEMATOCRIT (BEAKER) (test osag=284) 30.6 % 34.1-44.9 MEAN CORPUSCULAR VOLUME (BEAKER) (test kgvn=602) 90.0 fL 79.4-94.8 MEAN CORPUSCULAR HEMOGLOBIN (BEAKER) (test 27.6 pg 25.6-32.2 bywr=588) MEAN CORPUSCULAR HEMOGLOBIN CONC (BEAKER) (test 30.7 GM/DL 32.2-35.5 ntks=722) RED CELL DISTRIBUTION WIDTH (BEAKER) (test 14.7 % 11.7-14.4 pmgm=887) PLATELET COUNT (BEAKER) (test hcit=335) 132 K/CU MM 150-450 MEAN PLATELET VOLUME (BEAKER) (test lqva=316) 9.7 fL 9.4-12.3 NUCLEATED RED BLOOD CELLS (BEAKER) (test 0 /100 WBC 0-0 mwvl=868) NEUTROPHILS RELATIVE PERCENT (BEAKER) (test 72 % nsmf=772) LYMPHOCYTES RELATIVE PERCENT (BEAKER) (test 12 % tlmz=743) MONOCYTES RELATIVE PERCENT (BEAKER) (test 16 % xrie=901) EOSINOPHILS RELATIVE PERCENT (BEAKER) (test 0 % qkpo=603) BASOPHILS RELATIVE PERCENT (BEAKER) (test 0 % jmee=279) NEUTROPHILS ABSOLUTE COUNT (BEAKER) (test 6.59 K/ L 1.56-6.13 lhdr=946) LYMPHOCYTES ABSOLUTE COUNT (BEAKER) (test 1.10 K/ L 1.18-3.74 pzsz=037) MONOCYTES ABSOLUTE COUNT (BEAKER) (test 1.42 K/ L 0.24-0.36 yqwr=293) EOSINOPHILS ABSOLUTE COUNT (BEAKER) (test 0.01 K/ L 0.04-0.36 kmfj=561) BASOPHILS ABSOLUTE COUNT (BEAKER) (test 0.01 K/ L 0.01-0.08 vyzr=275) IMMATURE GRANULOCYTES-RELATIVE PERCENT (BEAKER) 0 % 0-1 (test alnn=1752)
--- NOTE | 2019-05-14 12:46 | RAD REPORT ---
EXAM DESCRIPTION: CT - Head Brain Wo Cont - 05/14/2019 12:36 pm CLINICAL HISTORY: Fall, head trauma, anticoagulation therapy history COMPARISON: CT head December 2014 TECHNIQUE: Axial 5 mm thick images of the head were obtained without IV contrast. All CT scans are performed using dose optimization technique as appropriate and may include automated exposure control or mA/KV adjustment according to patient size. FINDINGS: No intracranial hemorrhage, mass, edema or shift of mid-line structures. No acute infarcti on changes seen. No abnormal extra-axial fluid collections. Patient has atrophy and chronic ischemic change that matches prior study. Ventricles are in proportion to volume loss. Arterial and physiologi c calcifications are present. Mastoid air cells and visualized portions of the paranasal sinuses are clear. No acute bony findings. A small posterior left scalp hematoma is present. IMPRESSION: No hemorrhage, edema or acute intracranial finding. Atrophy and chronic ischemic changes match comparison study. Small posterior scalp hematoma with underlying bone intact.
--- NOTE | 2019-05-14 13:24 | ER ---
Nurse's Notes [facility] Name: Ann-Marie Caal Age: 89 yrs Sex: Female : 1930 Arrival Date: 05/14/2019 Time: 11:48 Bed 7 Private MD: Diagnosis: Superficial injury of head-hematoma;Fall on same level from slipping, tripping and stumbling;Pain in left foot Presentation: 05/14 12:06 Presenting complaint: Patient states: Fell while attempting to transfer from recliner ss to wheelchair at approximately 0600 this AM. Denies LOC. C/o LLE pain and tenderness to back of head. Pt was told to come to ER for evaluation as she is on blood thinners. Care prior to arrival: None. Mechanism of Injury: Fall from standing position. Trauma event details: [facility], Injury occurred: at home. 12:06 Acuity: MANNY 3 ss 12:06 Method Of Arrival: Wheelchair ss 12:08 Transition of care: patient was not received from another setting of care. Onset of ss symptoms was May 14, 2019. Risk Assessment: Do you want to hurt yourself or someone else? Patient reports no desire to harm self or others. Initial Sepsis Screen: Does the patient meet any 2 criteria? No. Patient's initial sepsis screen is negative. Does the patient have a suspected source of infection? No. Patient's initial sepsis screen is negative. Trauma Activation: Alert Physician: ED Physician; Name: Dr Malloy; Notified At: 12:18; Arrived At: 12:18 Physician: General Surgeon; Name: ; Notified At: 12:18; Arrived At: Physician: Radiology; Name: Rito; Notified At: 12:18; Arrived At: 12:35 Physician: Respiratory; Name: ; Notified At: 12:18; Arrived At: Physician: Lab; Name: ; Notified At: 12:18; Arrived At: Historical: - Allergies: 12:09 Codeine; ss 12:09 Dilaudid; ss 12:09 Sulfa (Sulfonamide Antibiotics); ss - PMHx: 12:09 Hypertension; DVT; ss - PSHx: 12:09 cardiac stent; two articial valves; pace maker defibrilator; Cholecystectomy; ss - Immunization history:: Adult Immunizations unknown. - Social history:: Smoking status: Patient/guardian denies using tobacco. - Immunization history: Last tetanus immunization: unknown. - Ebola Screening: : Patient denies exposure to infectious person Patient denies travel to an Ebola-affected area in the 21 days before illness onset. Screenin:06 Abuse screen: Denies threats or abuse. Denies injuries from another. Tuberculosis ss screening: Never had TB. 12:10 Fall Risk No fall in past 12 months (0 pts). No secondary diagnosis (0 pts). No IV (0 sv pts). Ambulatory Aid- None/Bed Rest/Nurse Assist (0 pts). Gait- Normal/Bed Rest/Wheelchair (0 pts) Mental Status- Oriented to own ability (0 pts). Total Duckworth Fall Scale indicates No Risk (0-24 pts). 12:20 Nutritional screening: No deficits noted. sv Primary Survey: 12:00 NO uncontrolled hemorrhage observed. A: The patient is alert. Airway: patent, No sv supplemental oxygen in use on arrival. Oral cavity: clear, Trachea midline. Breathing/Chest: Respiratory pattern: regular, Respiratory effort: spontaneous, unlabored, Chest inspection: symmetrical rise and fall of the chest. Circulation: Heart tones present. Pulses: palpable right radial artery, right dorsalis pedis artery, left radial artery and left dorsalis pedis artery. Skin color: pink, Skin temperature: warm, dry. Disability Alert. Exposure/Environment: All clothing and personal items were removed. Forensic evidence collection is not deemed to be indicated at this time. Items placed in patient belonging bag. There is no evidence of uncontrolled external bleeding. No obvious injuries are noted at this time. A warming method has been applied: A warm blanket has been provided to the patient. 12:30 Reassessment Airway Airway Patent Oxygen No O2 Oral cavity Clear Trachea Midline sv Breathing/Chest Respiratory pattern Regular Respiratory effort Spontaneous Unlabored Chest inspection Symmetrical Circulation Heart tones Present Pulses Palpable Color [place] Temperature Warm Dry Disability Alert. 13:30 Reassessment Airway Airway Patent Oxygen No O2 Oral cavity Clear Trachea Midline sv Breathing/Chest Respiratory pattern Regular Respiratory effort Spontaneous Unlabored Chest inspection Symmetrical Circulation Heart tones Present Pulses Palpable Color [place] Temperature Warm Dry Disability Alert. Secondary Survey: 12:00 HEENT: Head Other hematoma noted to the occipital head. Face No injury/deformity Eyes: sv No injury or deformity noted. to bilateral eyes. Ears: clear bilaterally. Nose: clear to bilateral nares. Throat: No injury or deformity noted. Gastrointestinal: No deficits noted. : No deficits noted. No signs and/or symptoms were reported regarding the genitourinary system. Musculoskeletal: Swelling present in left lateral ankle and lateral aspect of left foot Reports pain in left foot. Injury Description: Head injury sustained to left occipital area and right occipital area is closed, did not have loss of consciousness, hematoma to back of head. Vital Signs: 12:06 BP 146 / 51; Pulse 64; Resp 18; Temp 98.7(TE); Pulse Ox 96% on R/A; Weight 51.71 kg; ss Height 5 ft. 6 in. (167.64 cm); Pain 4/10; 12:30 BP 134 / 52; Pulse 56; Resp 11; Temp 98.8(TE); Pulse Ox 96% on R/A; sv 13:00 BP 139 / 55; Pulse 60; Resp 14; Pulse Ox 96% on R/A; sv 13:30 BP 138 / 51; Pulse 60; Resp 12; Pulse Ox 96% on R/A; sv 14:00 BP 139 / 59; Pulse 60; Resp 16; Pulse Ox 98% on R/A; sv 14:30 BP 138 / 55; Pulse 60; Resp 14; Pulse Ox 96% on R/A; sv 12:06 Body Mass Index 18.40 (51.71 kg, 167.64 cm) ss [place] Coma Score: 12:06 Eye Response: spontaneous(4). Verbal Response: oriented(5). Motor Response: obeys commands(6). Total: 15. 12:30 Eye Response: spontaneous(4). Verbal Response: oriented(5). Motor Response: obeys commands(6). Total: 15. Trauma Score (Adult): 12:06 Eye Response: spontaneous(1); Verbal Response: oriented(1); Motor Response: obeys ss commands(2); Systolic BP: > 89 mm Hg(4); Respiratory Rate: 10 to 29 per min(4); [place] Score: 15; Trauma Score: 12 12:30 Eye Response: spontaneous(1); Verbal Response: oriented(1); Motor Response: obeys sv commands(2); Systolic BP: > 89 mm Hg(4); Respiratory Rate: 10 to 29 per min(4); [place] Score: 15; Trauma Score: 12 ED Course: 11:48 Patient arrived in ED. as 12:00 Lelia Rivera RN is Primary Nurse. sv 12:05 Arm band placed on. sv 12:06 Patient has correct armband on for positive identification. Bed in low position. Call ss light in reach. Side rails up X 1. Patient maintains SpO2 saturation greater than 95% on room air. olive grader on. Pulse ox on. NIBP on. 12:06 Patient maintains SpO2 saturation greater than 95% on room air. ss 12:07 Triage completed. ss 12:10 Thermoregulation: warm blanket given to patient. sv 12:13 Leslie Saucedo FNP-C is PHCP. kb 12:13 Dimitri Malloy MD is Attending Physician. kb 12:37 CT Head Brain wo Cont In Process Unspecified. EDMS 13:03 X-ray completed. Portable x-ray completed in exam room. Patient tolerated procedure ls3 well. 13:09 Foot Left 3 View XRAY In Process Unspecified. EDMS 14:46 Ortho shoe applied to left foot. ca1 14:47 No provider procedures requiring assistance completed. Patient did not have IV access ca1 during this emergency room visit. Administered Medications: No medications were administered Intake: 12:06 PO: 0ml; Total: 0ml. sv 12:30 PO: 0ml; Total: 0ml. sv Output: 12:06 Urine: 0ml; Total: 0ml. sv 12:30 Urine: 0ml; Total: 0ml. sv Outcome: 13:22 Discharge ordered by MD. kb 14:47 Discharged to home via wheelchair. ca1 14:47 Condition: stable 14:47 Discharge instructions given to patient, family, Instructed on discharge instructions, follow up and referral plans. Demonstrated understanding of instructions, follow-up care. 14:47 Patient's length of stay in the Emergency Department was greater than 2 hours. d/t sv radiology resultsPatient's length of stay extended due to 14:48 Patient left the ED. ca1 Signatures: Dispatcher [employer] EDMS Leslie Saucedo FNP-C FNP-Ckb Miguel, LeliaOLENA roper RN, Amelia as Smirch, Shelby, RN RN ss Amisha Pate ls3 Irlanda Myers RN RN ca1 Corrections: (The following items were deleted from the chart) 18:15 12:30 BP 134 / 52; Pulse 56bpm; Resp 11bpm; Pulse Ox 96% RA; sv sv
--- NOTE | 2019-05-14 13:24 | EDPHYS ---
Physician Documentation [facility] Name: Ann-Marie Caal Age: 89 yrs Sex: Female : 1930 Arrival Date: 05/14/2019 Time: 11:48 Bed 7 Private MD: ED Physician Dimitri Malloy HPI: 05/14 13:14 This 89 yrs old Female presents to ER via Wheelchair with complaints of Fall kb Injury. 13:14 Details of fall: The patient fell from an upright position, transferring to wheelchair kb from recliner. Onset: The symptoms/episode began/occurred this morning. Associated injuries: The patient sustained injury to the head, hematoma, left foot, painful injury. Severity of symptoms: At their worst the symptoms were moderate, in the emergency department the symptoms are unchanged. The patient has not experienced similar symptoms in the past. The patient has not recently seen a physician. Historical: - Allergies: 12:09 Codeine; ss 12:09 Dilaudid; ss 12:09 Sulfa (Sulfonamide Antibiotics); ss - PMHx: 12:09 Hypertension; DVT; ss - PSHx: 12:09 cardiac stent; two articial valves; pace maker defibrilator; Cholecystectomy; ss - Immunization history:: Adult Immunizations unknown. - Social history:: Smoking status: Patient/guardian denies using tobacco. - Immunization history: Last tetanus immunization: unknown. - Ebola Screening: : Patient denies exposure to infectious person Patient denies travel to an Ebola-affected area in the 21 days before illness onset. ROS: 13:11 Constitutional: Negative for fever, chills, and weight loss, Cardiovascular: Negative kb for chest pain, palpitations, and edema, Respiratory: Negative for shortness of breath, cough, wheezing, and pleuritic chest pain, Abdomen/GI: Negative for abdominal pain, nausea, vomiting, diarrhea, and constipation, Skin: Negative for injury, rash, and discoloration. 13:11 MS/extremity: Positive for pain, of the left foot. 13:11 Neuro: Positive for headache. Exam: 13:12 Constitutional: This is a well developed, well nourished patient who is awake, alert, kb and in no acute distress. Head/Face: Normocephalic, atraumatic. Chest/axilla: Normal chest wall appearance and motion. Nontender with no deformity. No lesions are appreciated. Cardiovascular: Regular rate and rhythm with a normal S1 and S2. No gallops, murmurs, or rubs. Normal PMI, no JVD. No pulse deficits. Respiratory: Lungs have equal breath sounds bilaterally, clear to auscultation and percussion. No rales, rhonchi or wheezes noted. No increased work of breathing, no retractions or nasal flaring. Abdomen/GI: Soft, non-tender, with normal bowel sounds. No distension or tympany. No guarding or rebound. No evidence of tenderness throughout. MS/ Extremity: Pulses equal, no cyanosis. Neurovascular intact. Full, normal range of motion. Neuro: Awake and alert, GCS 15, oriented to person, place, time, and situation. Cranial nerves II-XII grossly intact. Motor strength 5/5 in all extremities. Sensory grossly intact. Cerebellar exam normal. Normal gait. 13:12 Skin: hematoma to back of head. Vital Signs: 12:06 BP 146 / 51; Pulse 64; Resp 18; Temp 98.7(TE); Pulse Ox 96% on R/A; Weight 51.71 kg; ss Height 5 ft. 6 in. (167.64 cm); Pain 4/10; 12:30 BP 134 / 52; Pulse 56; Resp 11; Temp 98.8(TE); Pulse Ox 96% on R/A; sv 13:00 BP 139 / 55; Pulse 60; Resp 14; Pulse Ox 96% on R/A; sv 13:30 BP 138 / 51; Pulse 60; Resp 12; Pulse Ox 96% on R/A; sv 14:00 BP 139 / 59; Pulse 60; Resp 16; Pulse Ox 98% on R/A; sv 14:30 BP 138 / 55; Pulse 60; Resp 14; Pulse Ox 96% on R/A; sv 12:06 Body Mass Index 18.40 (51.71 kg, 167.64 cm) Edelmira Coma Score: 12:06 Eye Response: spontaneous(4). Verbal Response: oriented(5). Motor Response: obeys commands(6). Total: 15. 12:30 Eye Response: spontaneous(4). Verbal Response: oriented(5). Motor Response: obeys commands(6). Total: 15. Trauma Score (Adult): 12:06 Eye Response: spontaneous(1); Verbal Response: oriented(1); Motor Response: obeys ss commands(2); Systolic BP: > 89 mm Hg(4); Respiratory Rate: 10 to 29 per min(4); Collbran Score: 15; Trauma Score: 12 12:30 Eye Response: spontaneous(1); Verbal Response: oriented(1); Motor Response: obeys sv commands(2); Systolic BP: > 89 mm Hg(4); Respiratory Rate: 10 to 29 per min(4); Edelmira Score: 15; Trauma Score: 12 MDM: 12:13 Patient medically screened. kb 13:10 Data reviewed: vital signs, nurses notes. Data interpreted: Pulse oximetry: on room air kb is 96 %. Interpretation: normal. Counseling: I had a detailed discussion with the patient and/or guardian regarding: the historical points, exam findings, and any diagnostic results supporting the discharge/admit diagnosis, radiology results, the need for outpatient follow up, a family practitioner, to return to the emergency department if symptoms worsen or persist or if there are any questions or concerns that arise at home. 05/14 12:25 Order name: CT Head Brain wo Cont; Complete Time: 12:49 kb 05/14 12:25 Order name: Foot Left 3 View XRAY; Complete Time: 13:29 kb 05/14 13:26 Order name: Post-op shoe; Complete Time: 14:48 kb Administered Medications: No medications were administered Disposition: 15:13 Co-signature as Attending Physician, Dimitri Malloy MD I agree with the assessment and dax plan of care. Disposition: 05/14/19 13:22 Discharged to Home. Impression: Superficial injury of head - hematoma, Fall on same level from slipping, tripping and stumbling, Pain in left foot. - Condition is Stable. - Discharge Instructions: Hematoma, [id number], Fall Prevention in the Home, [id number], Head Injury, Adult, [id number]. - Medication Reconciliation Form, Thank You Letter, Antibiotic Education, Prescription Opioid Use form. - Follow up: Emergency Department; When: As needed; Reason: Worsening of condition. Follow up: Private Physician; When: 2 - 3 days; Reason: Recheck today's complaints, Continuance of care, Re-evaluation by your physician. Signatures: Dispatcher [employer] EDMS John Saucedoistin, SUPERVISOR BEET END-C SUPERVISOR BEET END-Lelia Klein, RN RN Dimitri Michel MD MD cha Smirch, Shelby, RN RN ss Irlanda Myers RN RN ca1 Corrections: (The following items were deleted from the chart) 14:48 13:22 05/14/2019 13:22 Discharged to Home. Impression: Superficial injury of head - ca1 hematoma; Fall on same level from slipping, tripping and stumbling; Pain in left foot. Condition is Stable. Forms are Medication Reconciliation Form, Thank You Letter, Antibiotic Education, Prescription Opioid Use. Follow up: Emergency Department; When: As needed; Reason: Worsening of condition. Follow up: Private Physician; When: 2 - 3 days; Reason: Recheck today's complaints, Continuance of care, Re-evaluation by your physician. kb
--- NOTE | 2019-05-14 13:27 | RAD REPORT ---
EXAM DESCRIPTION: RAD - Foot Left 3 View - 05/14/2019 1:06 pm CLINICAL HISTORY: Left Foot pain status post fall FINDINGS: The bones are osteoporotic. Cortical regularity involves the fifth metatarsal neck suspicious for a nondisplaced fracture No dislocation pes planus deformity
[2019-05-14 14:52] VITALS: TEMP 98.7; O2SAT 96
[2019-05-14 14:53] VITALS: BP 134/52
== END 2019-05-14 14:48 | disposition home or self-care (01) ==
LOC: ER 11:45
DX: S00.03XA Contusion of scalp, initial encounter (principal); M79.672 Pain in left foot; W07.XXXA Fall from chair, initial encounter; Y93.89 Activity, other specified; I10 Essential (primary) hypertension; Z86.718 Personal history of other venous thrombosis and embolism; Z88.5 Allergy status to narcotic agent; Z88.2 Allergy status to sulfonamides
CPT/HCPCS: 70450; 99285